=== PATIENT | female | born 1995 | race Caucasian/White ===

== ENCOUNTER 2021-01-15 21:21 | Emergency (ER) | payer SELFPAY ==
[2021-01-15 21:22] VITALS: BP 144/85; PULSE 86; RESP 18; TEMP 36.4; O2SAT 98; BMI 23.1
--- NOTE | 2021-01-15 21:59 | EX.ED.VIS.EY ---
HPI History of Present Illness Chief Complaint: Eye Problem Informant: patient Narrative Narrative: 26-year-old female states when she woke this morning she had a foreign body sensation of the right eye. She notes her eye was tearing and red. She has tried to flush her eye several times today with no relief. She does not wear contact lenses or glasses. She denies any matting of the eyelashes. PFSH PFSH no medical history Home Medications NK 01/15/21 [History Last Taken Unknown] Allergy/AdvReac Type Severity Reaction Status Date / Time No Known Allergies Allergy Verified 01/15/21 21:24 Social History (Updated 01/15/21 @ 22:[address] Pete Ch, DO) Smoking Status: Never smoker substance use type: does not use ROS ROS ED Constitutional Constitutional ED: Denies chills or weight loss Eyes Eyes: Reports other Details: Eye redness foreign body sensation ; Denies change in vision or diplopia ENT ENT ED: Denies ear pain, rhinorrhea or sore throat Cardiovascular Cardiovascular: Denies chest pain, orthopnea, palpitations or racing heartbeat Respiratory/Chest Respiratory/Chest: Denies cough, dyspnea or orthopnea Gastrointestinal Gastrointestinal: Denies abdominal pain, diarrhea, nausea or vomiting Genitourinary Genitourinary ED: Denies dysuria, hematuria or urinary frequency Musculoskeletal Musculoskeletal: Denies arthralgias or myalgias Integumentary Denies abscess or rash Neurologic Neurologic: Denies headache(s) or weakness Psychiatric Psychiatric: Denies anxiety, depression, suicidal ideation or suicidal thoughts Endocrine Endocrinology: Denies polydipsia, polyphagia or polyuria Allergic/Immunologic Allergic/Immunologic ED: Denies mouth swelling, tongue swelling or urticaria EXAM Physical Exam Const Vital Signs: 01/15/21 21:22 Temperature 97.6 F L Temperature Source Temporal Pulse Rate 86 Respiratory Rate 18 Blood Pressure 144/85 H Blood Pressure Mean 104 Pulse Ox 98 Oxygen Delivery Method Room Air Positive well nourished and well developed General Appearance ED: well developed HEENT Reports normocephalic, head/scalp atraumatic and moist mucous membranes Eyes PERRL and EOMs intact bilaterally Eyes Narrative: The right eye is injected. Upon fluorescein staining there is a corneal abrasion in the 6 o'clock position. There is no foreign body noted with eversion of the eyelids. No hyphema. Anterior chamber quiet. Neck no lymphadenopathy, supple and no JVD Resp normal respiratory effort and clear to auscultation bilaterally Cardio regular rate, regular rhythm and no murmurs GI normal to inspection, nondistended, normoactive bowel sounds and non-tender Palpation: soft Back/Spine no CVA tenderness and normal ROM Extremity normal to inspection General Extremety ED: Negative for edema General Extremity: Negative for edema Neuro oriented x3 and CN's II-XII intact bilaterally Sensorium / Orientation: alert Motor Exam: strength 5/5 throughout Psych mental status grossly normal Mood & Affect: Negative for depressed or tearful Skin no rashes or lesions noted and no wounds MDM MDM MDM Narrative Medical decision making narrative: Patient will use erythromycin ophthalmic ointment. I suspect that she sustained a corneal injury during her sleep. Follow-up with ophthalmology 3 to 4 days to ensure resolution return if worsening or concerns Discharge Plan Triage Chief Complaint: Eye Problem ED Provider: Pete Ch Dx/Rx/DC Orders Clinical Impression: Abrasion, corneal Instructions: ED Corneal Abrasion Prescriptions: No Action NK RF: 0 Primary Care Provider: Care Physician,No Primary Referrals: Timoteo Rosado MD [STAFF PHYSICIAN] - 3-5 Days Care Physician,No Primary [Primary Care Provider] - Activity Restrictions/Additional Instructions: Apply thin ribbon to the eye 5 times a day for the next 5 days. Return if worsening or concerns. Disposition Disposition: Home, self care
[2021-01-15] MEDS: Erythromycin Base 1 OPTH.TUBE 1 APPLIC RIGHT EYE (22:05)
[2021-01-15] MEDS: Tetracaine 0.5% Ophthalmic Bottle 1 DRP EACH EYE (22:06)
== END 2021-01-15 22:08 | disposition home or self-care (01) ==
PROVIDERS: Emergency Provider Emergency Medicine
DX: S05.01XA Injury of conjunctiva and corneal abrasion without foreign body, right eye, initial encounter (principal); X58.XXXA Exposure to other specified factors, initial encounter; Y93.9 Activity, unspecified; Y92.89 Other specified places as the place of occurrence of the external cause; Y99.8 Other external cause status
CPT/HCPCS: 99283

== ENCOUNTER 2021-06-17 07:59 | Emergency (ER) | payer SELFPAY ==
[2021-06-17 08:00] VITALS: BP 128/79; PULSE 110; RESP 16; TEMP 36.6; O2SAT 99; BMI 23.1
--- NOTE | 2021-06-17 08:34 | EX.ED.DYSGE1 ---
HPI History of Present Illness Chief Complaint: Abscess Informant: patient Narrative Narrative: 26-year-old female states that several days ago she was eating a crunchy carrot she felt her tooth broke. Now she notes facial swelling swelling along her gumline and pain. She does not have a dentist at the current time. No fevers. PFSH PFSH Medical History no medical history no medical history Home Medications hydrocodone-acetaminophen 1 tab PO Q6H PRN PRN 3 Days #12 tablet 06/17/21 [Rx Last Taken Unknown] penicillin V potassium 500 mg PO 4X/DAY #40 tab 06/17/21 [Rx Last Taken Unknown] Allergy/AdvReac Type Severity Reaction Status Date / Time No Known Allergies Allergy Verified 06/17/21 08:02 Surgical History no surgical history no surgical history Social History (Updated 01/15/21 @ 22:[address] Pete Ch, DO) Smoking Status: Never smoker substance use type: does not use ROS ROS ED Constitutional Constitutional ED: Denies chills or weight loss Eyes Eyes: Denies change in vision or diplopia ENT ENT ED: Reports other Details: Dental pain facial swelling ; Denies ear pain, rhinorrhea or sore throat Cardiovascular Cardiovascular: Denies chest pain, orthopnea, palpitations or racing heartbeat Respiratory/Chest Respiratory/Chest: Denies cough, dyspnea or orthopnea Gastrointestinal Gastrointestinal: Denies abdominal pain, diarrhea, nausea or vomiting Genitourinary Genitourinary ED: Denies dysuria, hematuria or urinary frequency Musculoskeletal Musculoskeletal: Denies arthralgias or myalgias Integumentary Denies abscess or rash Neurologic Neurologic: Denies headache(s) or weakness Psychiatric Psychiatric: Denies anxiety, depression, suicidal ideation or suicidal thoughts Endocrine Endocrinology: Denies polydipsia, polyphagia or polyuria Allergic/Immunologic Allergic/Immunologic ED: Denies mouth swelling, tongue swelling or urticaria EXAM Physical Exam Const Vital Signs: 06/17/21 08:00 Temperature 97.9 F Temperature Source Temporal Pulse Rate 110 H Respiratory Rate 16 Blood Pressure 128/79 H Blood Pressure Mean 95 Pulse Ox 99 Oxygen Delivery Method Room Air Positive well nourished and well developed General Appearance ED: well developed HEENT Reports normocephalic, head/scalp atraumatic, TM's clear and moist mucous membranes HEENT Narrative: Left maxilla facial swelling. There is no trismus. Left upper posterior molar shows significant focal decay down to the gumline. There is an abscess on the lateral aspect of the gumline in this vicinity. Tympanic Membrane ED: Yes TM's clear Eyes PERRL and EOMs intact bilaterally Neck no lymphadenopathy, supple and no JVD Resp normal respiratory effort and clear to auscultation bilaterally Cardio regular rate, regular rhythm and no murmurs GI normal to inspection, nondistended, normoactive bowel sounds and non-tender Palpation: soft Back/Spine no CVA tenderness and normal ROM Thoracic Spine / Upper Back: Negative for paraspinal muscle tenderness Extremity normal to inspection General Extremety ED: Negative for edema General Extremity: Negative for edema Neuro oriented x3 and CN's II-XII intact bilaterally Sensorium / Orientation: alert Motor Exam: strength 5/5 throughout Psych mental status grossly normal Mood & Affect: Negative for depressed or tearful Skin no rashes or lesions noted and no wounds MDM MDM MDM Narrative Medical decision making narrative: I dino bupivacaine and was in the process of starting to numb her when I noticed that the abscess had started to spontaneously drained. The needle never did enter the gumline. Patient was able to express a significant amount of pus. As this is spontaneously draining and I think at this point I need to open the gums up further. I'll place her on [employer] K and a few [place] and urged dental follow-up Discharge Plan Triage Chief Complaint: Abscess ED Provider: Pete Ch Dx/Rx/DC Orders Clinical Impression: Abscess, dental Instructions: ED Dental Abscess Prescriptions: New hydrocodone-acetaminophen [hydrocodone-acetaminophen] 1 TABLET tablet 1 tab PO Q6H PRN PRN (Reason: Pain) 3 Days Qty: 12 RF: 0 penicillin V potassium 500 MG tablet 500 mg PO 4X/DAY Qty: 40 RF: 0 Primary Care Provider: Care Physician,No Primary Referrals: Care Physician,No Primary [Primary Care Provider] - Disposition Disposition: Home, Self Care
[2021-06-17 08:50] VITALS: RESP 17
== END 2021-06-17 08:50 | disposition home or self-care (01) ==
PROVIDERS: Emergency Provider Emergency Medicine
DX: K04.7 Periapical abscess without sinus (principal)
CPT/HCPCS: 99282

== ENCOUNTER 2023-08-18 12:55 | Inpatient (IN) | payer MEDICAID, SELFPAY ==
[2023-08-18] VITALS (8 sets, daily range): BP systolic 106–123; BP diastolic 53–71; PULSE 98–113; TEMP 36.9–37.3; O2SAT 97–99; BMI 24.4
--- OUTSIDE RECORDS SUMMARY | 2023-08-18 11:57 | XMS RPT_ITS | CCD ---
Author Name Unknown Address [id number] [place] [address] Organization [facility] Care Team Providers Care Blanking Machine Operator Name Role Phone Vitaly, Radha Unavailable Unavailable [facility] Unavailable Unavailable Vitaly, Radha Unavailable Unavailable No Doctor Assigned, Nodr Unavailable Unavail able Vitale, Rodo Unavailable Unavailable Vitale, Rodo Unavailable Unavailable No Doctor Assigned, Nodr Unavailable Unavail able Hofstetter, Nelly Unavailable Unavailable Hofstetter, Nelly Unavailable Unavailable No Doctor Assigned, Nodr Unavailable Unavail able Vitaly, Radha Unavailable Unavailable No Doctor Assigned, Nodr Unavailable Unavail able Vitaly, Radha Unavailable Unavailable Vitaly, Radha Unavailable Unavailable No Doctor Assigned, Nodr Unavailable Unavail able Vitaly, Radha Unavailable Unavailable No Doctor Assigned, Nodr Unavailable Unavail able Vitaly, Radha Unavailable Unavailable Vitaly, Radha Unavailable Unavailable No Doctor Assigned, Nodr Unavailable Unavail able Vitaly, Radha Unavailable Unavailable No Doctor Assigned, Nodr Unavailable Unavail able Vitaly, Radha Unavailable Unavailable Vitaly, Radha Unavailable Unavailable No Doctor Assigned, Nodr Unavailable Unavail able Vitaly, Radha Unavailable Unavailable No Doctor Assigned, Nodr Unavailable Unavail able Vitaly, Radha Unavailable Unavailable Vitaly, Radha Unavailable Unavailable No Doctor Assigned, Nodr Unavailable Unavail able Vitaly, Radha Unavailable Unavailable Vitaly, Radha Unavailable Unavailable No Doctor Assigned, Nodr Unavailable Unavail able Vitaly, Radha Unavailable Unavailable Vitaly, Radha Unavailable Unavailable Vitaly, Radha Unavailable Unavailable No Doctor Assigned, Nodr Unavailable Unavail able Vitaly, Radha Unavailable Unavailable No Doctor Assigned, Nodr Unavailable Unavail able Vitaly, Radha Unavailable Unavailable Vitaly, Radha Unavailable Unavailable Vitaly, Radha Unavailable Unavailable No Doctor Assigned, Nodr Unavailable Unavail able Vitaly, Radha Unavailable Unavailable No Doctor Assigned, Nodr Unavailable Unavail able Vitaly, Radha Unavailable Unavailable No Doctor Assigned, Nodr Unavailable Unavail able Vitaly, Radha Unavailable Unavailable Vitaly, Radha Unavailable Unavailable No Doctor Assigned, Nodr Unavailable Unavail able Vitaly, Radha Unavailable Unavailable Vitaly, Radha Unavailable Unavailable No Doctor Assigned, Nodr Unavailable Unavail able Unknown, Pcp Unavailable Unavailable Guru Fonseca Unavailable Unavailable Primary Care Provider UnavailTAPAN Darnell Referring Unavailable CORINA XIONG Referring Unavailable CORINA XIONG Attending Unavailable GLORIA HIGHTOWER Attending Unavailable LINSEY JHA Attending Unavail able EMILIANO ARANA Attending Unavailable LINSEY JHA Attending Unavail able TERESE ROSAS Referring Unavailable CORINA XIONG Referring Unavailable KANU ISLAS Attending Unavailable Allergies Allergy Classification Reported Allergen(s) Allergy Type Date of Onset Reaction(s) Facility (1 source) Dust; Translations: [Dust] Propensity to adverse reactions to drug (disorder) [facility] (1 source) Pollen; Translations: [Pollen] Propensity to adverse reactions to drug (disorder) [facility] ([facility] source) No Known Allergies; Translations: [No Known Allergies] Propensity to adverse reactions to drug (disorder) [facility] Repository (11 sources) house dust allergenic extract; Translations: [HOUSE DUST] Drug Allergy [address] [facility] (11 sources) Ragweed pollen; Translations: [RAGWEED POLLEN] Drug Allergy [address] [facility] (11 sources) Animal Dander; Translations: [ANIMAL DANDER] Drug Allergy [address] [facility] Medications Current Medications Medication Drug Class(es) Dates Sig (Normalized) Sig (Original) acetaminophen 325 mg / HYDROcodone bitartrate 5 mg oral tablet (1 source) Opioid Agonist Start: 03-01-2021 End: 03-03-2021 take 1 tablet by mouth every six hours Vernal 5 mg-325 mg oral tablet ; 1 tab(s) orally every 6 hours Quantity: 12 Refills: 0 Ordered: 28-Feb-2021 Guru Fonseca Start: 28-Feb-2021 End: 02-Mar-2021 Generic Substitution Allowed Comments: Caution federal law prohibits the transfer of this drug to any person other than the person for whom it was prescribed.May cause drowsiness. Alcohol may intensify this effect. Use care when operating dangerous machinery.This product contains acetaminophen. Do not use with any other product containing acetaminophen to prevent possible liver damage.Using more of this medication than prescribed may cause serious breathing problems. Completed/Discontinued Medications Medication Drug Class(es) Dates Sig (Normalized) Sig (Original) nitrofurantoin, macrocrystals 25 mg / nitrofurantoin, monohydrate 75 mg oral capsule (1 source) Nitrofuran Antibacterial Start: 06-07-2019 End: 06-11-2019 take 1 capsule by mouth twice daily as needed Macrobid 100 mg oral capsule ; 1 cap(s) orally 2 times a day x 5 days, As Needed Quantity: 10 Refills: 0 Ordered: 07-Jun-2019 Franklin Esquivel Start: 07-Jun-2019 End: 11-Jun-2019 Generic Substitution Allowed Comments: Finish all this medication unless otherwise directed by prescriber.May discolor urine or feces.Take with food or milk. Problems Problem Classification Problem Date Documented Da te Episodic/Chronic Abdominal pain (2 sources) Abdominal pain 02-28-2021 Episodic Results Test Name Value Interpretation Reference Range Facil ity Vital Signs Date Time Vital Sign Value Performing Clinician Facility 07-26-2023 13:58-0500 Body weight 66.22 kg Anita Catalan APRN.CNP Work Phone: [facility] 07-26-2023 13:58-0500 Diastolic blood pressure 62 mm[Hg] Anita Catalan APRN.ASSEMBLER FINGER BUFFS Work Phone: [facility] 07-26-2023 13:58-0500 Systolic blood pressure 100 mm[Hg] Anita Catalan APRN.ASSEMBLER [employer]INGER [employer]S Work Phone: [facility] 07-12-2023 14:51-0500 Body weight 66.86 kg Emiliano Arana MD Work Phone: [facility] 07-12-2023 14:51-0500 Diastolic blood pressure 62 mm[Hg] Emiliano Arana MD Work Phone: [facility] 07-12-2023 14:51-0500 Systolic blood pressure 100 mm[Hg] Emiliano Arana MD Work Phone: [facility] 07-04-2023 08:06-0500 Body weight 65.32 kg Linsey Arango MD Work Phone: [facility] 07-04-2023 08:06-0500 Diastolic blood pressure 62 mm[Hg] Linsey Arango MD Work Phone: [facility] 07-04-2023 08:06-0500 Systolic blood pressure 100 mm[Hg] Linsey Arango MD Work Phone: [facility] 06-11-2023 10:06-0400 Body weight 62.78 kg Terese Ralph CLOTH MERCERIZER BACK TENDER.ASSEMBLER [employer]INGER [employer]S Work Phone: [facility] 06-11-2023 10:06-0400 Diastolic blood pressure 62 mm[Hg] Terese Ralph CLOTH MERCERIZER BACK TENDER.ASSEMBLER [employer]INGER [employer]S Work Phone: [facility] 06-11-2023 10:06-0400 Systolic blood pressure 96 mm[Hg] Terese Ralph CLOTH MERCERIZER BACK TENDER.ASSEMBLER [employer]INGER [employer]FFS Work Phone: [facility] 05-24-2023 13:10-0400 Body height 165.1 cm Corina Xiong CLOTH MERCERIZER BACK TENDER.ASSEMBLER [employer]S Work Phone: [facility] 05-24-2023 13:10-0400 Body weight 60.78 kg Corina Xiong CLOTH MERCERIZER BACK TENDER.ASSEMBLER [employer]INGER [employer]FFS Work Phone: [facility] 05-24-2023 13:10-0400 Diastolic blood pressure 58 mm[Hg] Corina Samsonhrie CLOTH MERCERIZER BACK TENDER.ASSEMBLER [employer]INGER [employer]FFS Work Phone: [facility] 05-24-2023 13:10-0400 Systolic blood pressure 110 mm[Hg] Corina Xiong CLOTH MERCERIZER BACK TENDER.ASSEMBLER [employer]ING[employer]S Work Phone: [facility] 03-01-2021 01:25-0400 Diastolic blood pressure 90 mm[Hg] Pcp Unknown [facility] 03-01-2021 01:25-0400 Heart rate 70 /min Pcp Unknown [facility] 03-01-2021 01:25-0400 Respiratory rate 16 /min Pcp Unknown [facility] 03-01-2021 01:25-0400 SaO2% (BldA) [Mass fraction] 98 % Pcp Unknown [facility] 03-01-2021 01:25-0400 Systolic blood pressure 110 mm[Hg] Pcp Unknown [facility] 02-28-2021 21:55-0400 Body height 162.5 cm Pcp Unknown [facility] 02-28-2021 21:55-0400 Body temperature 97.52 [degF] Pcp Unknown [facility] 02-28-2021 21:55-0400 Body weight 61 kg Pcp Unknown [facility] 12-18-2017 [id number] Body surface area Derived from formula [facility] Encounters Encounter Date Encounter Type Care Provider Facility Start: 08-08-2023 End: 08-08-2023 ambulatory [facility] Facility:[facility] Start: 07-29-2023 Telephone encounter Developmental Writing Instructor RN Maternal Medicine Procedures Date Procedure Procedure Detail Performing Clinician Start: 07-26-2023 URINE OB DIP B/O Linsey Arango MD Work Phone: Start: 07-12-2023 URINE OB DIP B/O Emiliano casarez MD Work Phone: Start: 06-11-2023 URINE OB DIP B/O Kanu Islas MD Work Phone: Start: 06-05-2023 Us preg uterus after 1st trimest 08/19 gestation Tapan Nicolas MD Work Phone: Start: 05-24-2023 Antibody screen TAPAN NICOLAS Plan of Treatment Date Care Activity Detail Author Start: 07-12-2033 Urine microalbumin profile DTaP,Tdap,Td Vaccine (3 - Td or Tdap) [facility] Start: 05-20-2028 Urine microalbumin profile DTaP,Tdap,Td Vaccine (2 - Td or Tdap) [facility] Start: 05-24-2026 Pap Testing Pap Testing [facility] Start: 08-14-2023 RSV Vaccine (1 - Ris k 1-dose series) RSV Vaccine (1 - Risk 1-dose series) [facility] Start: 06-11-2023 End: 09-10-2023 CBC W Auto Differential panel - Blood CBC + DIFF Lab Routine 22 weeks gestation of Expected: 06/11/2023, Expires: 09/10/2023 [facility] Work Phone: Immunizations Immunization Date Immunization Notes Care Provider Fa cility 07-12-2023 tetanus toxoid, redu marlon diphtheria toxoid, and acellular pertussis vaccine, adsorbed Emiliano Arana MD Work Phone: [facility] Payers Date Payer Category Payer Unknown [id number] 2017 Unknown 2017 Medicaid 1995 Unknown [id number] 2.16.84 0.1.677696.3.579.2. 1995 Unknown [id number] 2.16.84 0.1.423828.3.579.2. 1995 Unknown [id number] 2.16.84 0.1.800667.3.579.2. 1995 Unknown [id number] 2.16.84 0.1.822714.3.579.2. 1995 Unknown [id number] 2.16.84 0.1.270529.3.579.2. 1995 Unknown [id number] 2.16.84 0.1.990774.3.579.2. 1995 Unknown [id number] 2.16.84 0.1.520114.3.579.2. 1995 Unknown [id number] 2.16.84 0.1.312765.3.579.2. 1995 Unknown [id number] 2.16.84 0.1.405596.3.579.2. 1995 Unknown [id number] 2.16.84 0.1.645272.3.579.2. 1995 Unknown [id number] 2.16.84 0.1.157839.3.579.2. 1995 Unknown [id number] 2.16.84 0.1.287045.3.579.2. 1995 Unknown [id number] 2.16.84 0.1.631175.3.579.2. 1995 Unknown [id number] 2.16.84 0.1.043737.3.579.2. 1995 Unknown [id number] 2.16.84 0.1.726009.3.579.2. 1995 Unknown [id number] 2.16.84 0.1.425154.3.579.2. 1995 Unknown [id number] 2.16.84 0.1.597496.3.579.2. 1995 Unknown [id number] 2.16.84 0.1.071904.3.579.2. 1995 Unknown [id number] 2.16.84 0.1.304844.3.579.2. 1995 Unknown [id number] 2.16.84 0.1.453216.3.579.2. 1995 Unknown [id number] 2.0.1.108754.3.579.2. 1995 Unknown [id number] 2.0.1.899130.3.579.2. 1995 Unknown [id number] .1.674449.3.579.2.356 1995 Unknown [id number] 840.1.938725.3.579.2. 1995 Unknown [id number] .1.299300.3.579.2. Unknown [id number] Social History Date Type Detail Facility [facility] Tobacco smoking consumption unknown [facility] Start: 05-24-2023 Tobacco smoking status NHIS Never smoked tobacco [facility] Start: 05-24-2023 Tobacco use and exposure Smokeless tobacco non-user [facility] Start: 05-24-2023 End: 07-26-2023 Alcohol intake Lifetime non-drinker (finding) [facility] Start: 05-24-2023 End: 07-26-2023 History of Social function [facility] Start: 05-24-2023 End: 07-26-2023 Tobacco use panel [facility] National Score (1-100), lower number is lower risk 71 [facility] Start: 01-16-2023 [facility] Start: 1995 Sex Assigned At Not on file [facility] Goals Date Patient Goal Desired Activity /State Personal health goal Clinical Notes 05-24-2023 to 07-29-2023 Telephone Encounter - Priya Hester RN - 07/29/2023 11:55 AM ESTPrenatal Quick Notes - Anita Catalan APRN.CNP - 07/26/2023 3:02 PM ESTPatient Niharika Green MA - 07/12/2023 2:50 PM EST Note Date & Type Note Facility 07-29-2023 Miscellaneous Notes 2nd risk assessment form submitted 07/29/2023. Priya Hester RN documented in this encounter [facility] 07-26-2023 Miscellaneous Notes S: Terry is a 28 year old female who presents at 29w2d for a routine visit. Feeling movement. Denies headache, visual changes, chest pain, shortness of breath, vaginal bleeding, leakage of fluid, or dysuria. Feeling well, no complaints. O: See flow sheet Gen: No apparent distress Abd: Gravid, nontender, S<D ASSESSMENT/PLAN: 1. 29 weeks gestation of - ICD9: V22.2, ICD10: Z3A.29 (primary diagnosis) - Declines LARC, but would like tubal. Title 19 signed 07/12 - PTL precautions reviewed - Kick counts reviewed Still experiencing low back pain. Chiropractor recommendations/information provided. Prior pelvic floor PT consult placed for NORAH. Baby shower on Saturday. To return in 2 weeks or sooner as needed. Anita Haury, CLOTH MERCERIZER BACK TENDER.ASSEMBLER FINGER BUFFS documented in this encounter [facility] 07-26-2023 Instructions Anita Catalan APRN.CNP - 07/26/2023 1:38 PM EST [facility] [address] [place] [address] [facility] [address] [place] [address] [facility] [address] [place] [address] [facility] [address] [address] [address] [email or web address] [address] [place] [address] [facility] [address] [facility] [place] [address] [place] [address] [email or web address] [facility] [address] [place], [place] [address] [email or web address] [facility] [phone] [employer].[facility]ulivermore sanitariumFlex[facility] [address] [place] [address] [facility] [address] [address] [facility] [place] office also [phone] [email or web address] [phone] [address] [facility] [address] [place] [address] [facility] [address] [place] [address] [email or web address] [facility] [address] [place] [address] [email or web address] SEQUENTIAL SCREENINGS The [facility] offers sequential screenings for women who are interested in screenings for chromosomal abnormalities and certain defects during a . The sequential screen combines ultrasound and blood tests to determine the risk of chromosomal abnormalities, including Down's Syndrome (Trisomy 21) and Trisomy 18, as well as open neural tube defects including spina bifida. Ultrasound examination is performed between 11 weeks and 13 weeks gestational age. Blood tests are drawn after the ultrasound and again later in the between 15 and 21 weeks gestational age. Please let your physician know if you are interested in this testing. It will require an appointment with our machine tool technician instructor. This is not an ultrasound performed by a physician in our office during a routine visit. SIGNS AND SYMPTOMS OF LABOR 1. Contractions every 10 minutes or more often 2. Clear, pink, or brownish fluid (water) leaking from vagina 3. Feeling that baby is pushing down, pressure 4. Low, dull backache 5. Cramps that feel like a period 6. Cramps with or without diarrhea If you notice any of the above symptoms, contact our office at [phone] and ask to speak with a nurse. After hours, you can call doctors registry at [phone] OR call [facility] at [phone] and ask to have the doctor manager continuous improvement paged. If you consider this an emergency, dial 9-1-5 or go to your nearest emergency department. NEED HELP? Are you dealing with a violent or abusive relationship? Are you a victim of rape or sexual assult? Call [facility] ([facility] 24 hour Crisis Hotline: 455.129.8068 or 172-128-1896. MANUAL Your Guide to a Healthy manual is now on-line. Visit [email or web address] ancyGuide to download your free copy documented in this encounter [facility] 07-23-2023 Miscellaneous Notes Order signed and faxed. Venus Mensah RN Order to RR to sign. Venus Mensah RN Called [facility] and they will fax another copy. Unable to locate breast pump order and no longer in RR's mailbox. [facility] asking for another copy. Venus Mensah RN [facility] pump [facility]. To RR to sign. Venus Mensah RN documented in this encounter [facility] 07-12-2023 Note HNO ID: [id number] Author: Niharika Jain MA Service: ? Author Type: Buyer Agent Type: Progress Notes Filed: 07/12/2023 5:15 PM Note Text: Patient identified by name and date of . Terry Yusuf presents today for a vaccination of Tdap. Patient denies an allergy to latex: yes Patient denies a severe (life-threatening) allergy to a previous dose of Tdap, DTP, DTaP, DT or Td vaccine. Yes Patient denies history of epilepsy or neurological problems: Yes Patient is afebrile and denies being moderately or severely ill: Yes Patient denies history of Guillain-[place] Syndrome (a severe paralytic illness): Yes Tdap Adacel injection was given without incident. See immunizations for details of immunizations administered today. VIS sheet provided: Yes Provider Emiliano Arana DO was present in office at time of injection. Niharika Jain MA [facility] 07-12-2023 Miscellaneous Notes SW- Back pain and sciatica pain. No ctx, vb, lof. Good FM PE: Gen- NAD, well appearing Abd- Soft, gravid, NT Ext- No edema See flowsheet A/p 27 wk gestation - Back pain: Discussed support belt, tylenol prn, heat prn, chiropractor - NORAH: Consult to pelvic floor PT - Questions answered about CIN2 - Tdap today - Heart palpitations have improved - LARC sign at next visit. Interested in LARC and information given for her to review. Considering sterilization but unsure. Title 19 siogned today. Reviewed PPBC options - RTO 2 wks Emiliano Arana DO documented in this encounter [facility] 07-12-2023 History of Presen t illness Narrative Patient identified by name and date of . Terry Yusuf presents today for a vaccination of Tdap. Patient denies an allergy to latex: yes Patient denies a severe (life-threatening) allergy to a previous dose of Tdap, DTP, DTaP, DT or Td vaccine. Yes Patient denies history of epilepsy or neurological problems: Yes Patient is afebrile and denies being moderately or severely ill: Yes Patient denies history of Guillain-[place] Syndrome (a severe paralytic illness): Yes Tdap Adacel injection was given without incident. See immunizations for details of immunizations administered today. VIS sheet provided: Yes Provider Emiliano Arana DO was present in office at time of injection. Niharika Jain MA documented in this encounter [facility] 07-12-2023 Instructions Niharika Jain MA - 07/12/2023 2:46 PM EST SEQUENTIAL SCREENINGS The [facility] offers sequential screenings for women who are interested in screenings for chromosomal abnormalities and certain defects during a . The sequential screen combines ultrasound and blood tests to determine the risk of chromosomal abnormalities, including Down's Syndrome (Trisomy 21) and Trisomy 18, as well as open neural tube defects including spina bifida. Ultrasound examination is performed between 11 weeks and 13 weeks gestational age. Blood tests are drawn after the ultrasound and again later in the between 15 and 21 weeks gestational age. Please let your physician know if you are interested in this testing. It will require an appointment with our machine tool technician instructor. This is not an ultrasound performed by a physician in our office during a routine visit. SIGNS AND SYMPTOMS OF LABOR 1. Contractions every 10 minutes or more often 2. Clear, pink, or brownish fluid (water) leaking from vagina 3. Feeling that baby is pushing down, pressure 4. Low, dull backache 5. Cramps that feel like a period 6. Cramps with or without diarrhea If you notice any of the above symptoms, contact our office at [phone] and ask to speak with a nurse. After hours, you can call doctors registry at [phone] OR call [facility] at [phone] and ask to have the doctor manager continuous improvement paged. If you consider this an emergency, dial 3-9-1 or go to your nearest emergency department. NEED HELP? Are you dealing with a violent or abusive relationship? Are you a victim of rape or sexual assult? Call [facility] ([place]) 24 hour Crisis Hotline: 908.724.5495 or 667-985-7796. MANUAL Your Guide to a Healthy manual is now on-line. Visit [email or web address] ancyGuide to download your free copy documented in this encounter [facility] 07-04-2023 Note HNO ID: [id number] Author: Linsey Jha MD Service: ? Author Type: Physician Type: Progress Notes Filed: 07/04/2023 8:48 AM Note Text: Direct Support Specialist offered: Patient declines. Terry is a 28 year old who presents today for a colposcopy. The patient's last pap smear was HGSIL from May 2023. Patient has a history of abnormal pap: pt uncertain. The patient has had prior treatment: none. test: positive UNIVERSAL PROTOCOL / SAFETY CHECKLIST Procedure to be Performed: Colposcopy with biopsy Sign In: A Moment of CARE was completed. Personnel directly involved with the procedure wore the appropriate PPE (Personal Protective Equipment). Patient/Surrogate Stated/Verified: PATIENT VERIFIED(optional for EMERGENT procedures): Patient name, Date of , Relevant allergies, and The intended procedure Time Out Communication: Intended patient and procedure match the source documents. Consent documented and matches the intended procedure. Sign Out: SIGN OUT (optional for EMERGENT procedures): All specimen containers correctly labeled. PROCEDURE: EXTERNAL GENITALIA: Normal in appearance without lesions VAGINA: Normal in appearance without lesions CERVIX: Speculum placed in vagina and excellent visualization of cervix achieved. Cervix swabbed x 3 with 3% acetic acid solution. Cervix grossly normal. Squamocolumnar junction visualized. acetowhite changes noted diffusively . BIOPSY: Done at 6:00 and 12:00 ECC: not done HEMOSTASIS: Obtained with silver nitrate and pressure Procedure Summary: Patient tolerated procedure well and colposcopy was adequate. ASSESSMENT: HSIL PLAN: Specimens labeled and sent to Pathology. Will notify patient of results in 1-2 weeks. Discussed will need close follow up after delivery-possible leep after delivery Linsey Swanson MD [facility] 07-04-2023 Instructions Kaylee Thomas Ma - 07/04/2023 7:43 AM EST YOUR RECOVERY It may take a few weeks for your cervix to heal. While your cervix heals, you may have: - Vaginal bleeding (less than a normal menstrual period) - Mild cramping - A brown-black vaginal discharge (similar to coffee grounds) which is a result of the paste used to help stop bleeding from the procedure Do NOT put anything in the vagina for 1 week after your colposcopy if your doctor does a biopsy of your cervix. This includes sex, tampons, and douches. If you have any discomfort, you may take an over the counter pain medication (motrin, advil, ibuprofen, tylenol, etc). If this does not relieve your discomfort, contact your doctor's office for a prescription strength pain medication. It is okay to wear a sanitary pad until the discharge and spotting stops. RISKS Although problems seldom occur with colposcopy, there can be some complications. You may feel faint during and shortly after the procedure as well as have some bleeding and vaginal discharge after the procedure. There is also a risk of infection after the procedure. These complications are rare and can be easily treated. You should contact you doctor is you have any of the following: - Heavy bleeding (more than your normal period) - Bleeding with clots - Severe abdominal pain - Fever (more than 100.4F) - Foul smelling vaginal discharge RESULTS If a biopsy was taken, we will have the results of your biopsy in 1-2 weeks. If you do not hear the results of your biopsy after 2 weeks, please contact your physicians office for the results. Depending on the biopsy results, your doctor will determine your follow up plan which may include further testing or treatments. STAYING HEALTHY After the procedure, you will need to see your doctor for follow up visits during the year. At these visits your doctor will check the health of your cervix with a pap smear. After three normal pap smears, your doctor will allow you to return to having exams once a year. If you have another abnormal pap smear, you may need closer follow up for longer or you may need additional treatment. By making a few lifestyle changes after the procedure, you can help protect the health of your cervix: - Have regular pelvic exams and pap smears as ordered by your doctor. - Stop smoking as smoking increases your risk of developing a cancer of the cervix - If you have more than one sexual partner, limit your number of partners and use condoms to reduce your risks of STDs. If you have any additional questions, please contact your doctor's office. documented in this encounter [facility] 07-04-2023 History of Presen t illness Narrative Direct Support Specialist offered: Patient declines. Terry is a 28 year old who presents today for a colposcopy. The patient's last pap smear was HGSIL from May 2023. Patient has a history of abnormal pap: pt uncertain. The patient has had prior treatment: none. test: positive UNIVERSAL PROTOCOL / SAFETY CHECKLIST Procedure to be Performed: Colposcopy with biopsy Sign In: A Moment of CARE was completed. Personnel directly involved with the procedure wore the appropriate PPE (Personal Protective Equipment). Patient/Surrogate Stated/Verified: PATIENT VERIFIED(optional for EMERGENT procedures): Patient name, Date of , Relevant allergies, and The intended procedure Time Out Communication: Intended patient and procedure match the source documents. Consent documented and matches the intended procedure. Sign Out: SIGN OUT (optional for EMERGENT procedures): All specimen containers correctly labeled. PROCEDURE: EXTERNAL GENITALIA: Normal in appearance without lesions VAGINA: Normal in appearance without lesions CERVIX: Speculum placed in vagina and excellent visualization of cervix achieved. Cervix swabbed x 3 with 3% acetic acid solution. Cervix grossly normal. Squamocolumnar junction visualized. acetowhite changes noted diffusively . BIOPSY: Done at 6:00 and 12:00 ECC: not done HEMOSTASIS: Obtained with silver nitrate and pressure Procedure Summary: Patient tolerated procedure well and colposcopy was adequate. ASSESSMENT: HSIL PLAN: Specimens labeled and sent to Pathology. Will notify patient of results in 1-2 weeks. Discussed will need close follow up after delivery-possible leep after delivery Linsey Swanson MD documented in this encounter [facility] 06-11-2023 Miscellaneous Notes S: Terry Yusuf is a 28 year old female who presents at 22w6d for a routine visit. Feeling movement. Denies headache, visual changes, chest pain, shortness of breath, vaginal bleeding, leakage of fluid, or dysuria. Feeling well, no complaints. O: See flow sheet Gen: No apparent distress Abd: Gravid, nontender, S=D ASSESSMENT/PLAN: 1. Encounter for supervision of other normal in second trimester - ICD9: V22.1, ICD10: Z34.82 (primary diagnosis) - Anatomy scan within normal limits per Dr. Nicolas 2. 22 weeks gestation of - ICD9: V22.2, ICD10: Z3A.22 - URINE OB DIP B/O - Plan for CBC, GTT, and syphilis next visit 3. 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) - ICD9: 795.04, ICD10: R87.613 - Reviewed results with patient - Colposcopy scheduled 07/04 4. Heartburn during in second trimester - ICD9: 646.83, 787.1, ICD10: O26.892, R12 - Reviewed relief measures -Discussed Tums and Pepcid 5. Heart palpitations - ICD9: 785.1, ICD10: R00.2 - Resolved at this time - To notify if persistent throughout 6. Pain of round ligament during - ICD9: 646.83, 625.9, ICD10: O26.899, R10.2 - Reviewed slow movements YOLI Narvaez APRN.CNP documented in this encounter [facility] 06-11-2023 Instructions s Rowena Foreman - 06/11/2023 9:47 AM EDT SEQUENTIAL SCREENINGS The [facility] offers sequential screenings for women who are interested in screenings for chromosomal abnormalities and certain defects during a . The sequential screen combines ultrasound and blood tests to determine the risk of chromosomal abnormalities, including Down's Syndrome (Trisomy 21) and Trisomy 18, as well as open neural tube defects including spina bifida. Ultrasound examination is performed between 11 weeks and 13 weeks gestational age. Blood tests are drawn after the ultrasound and again later in the between 15 and 21 weeks gestational age. Please let your physician know if you are interested in this testing. It will require an appointment with our machine tool technician instructor. This is not an ultrasound performed by a physician in our office during a routine visit. SIGNS AND SYMPTOMS OF LABOR 1. Contractions every 10 minutes or more often 2. Clear, pink, or brownish fluid (water) leaking from vagina 3. Feeling that baby is pushing down, pressure 4. Low, dull backache 5. Cramps that feel like a period 6. Cramps with or without diarrhea If you notice any of the above symptoms, contact our office at [phone] and ask to speak with a nurse. After hours, you can call doctors registry at [phone] OR call [facility] at [phone] and ask to have the doctor manager continuous improvement paged. If you consider this an emergency, dial or go to your nearest emergency department. NEED HELP? Are you dealing with a violent or abusive relationship? Are you a victim of rape or sexual assult? Call [facility] ([place]) 24 hour Crisis Hotline: 596.378.6862 or 505-073-8332. MANUAL Your Guide to a Healthy manual is now on-line. Visit [email or web address] to download your free copy documented in this encounter [facility] 06-05-2023 Miscellaneous Notes Anatomy ultrasound reviewed. No abnormalities identified. Follow up as clinically indicated. Please place copy in ob chart. Tapan Nicolas MD documented in this encounter [facility] 05-28-2023 Miscellaneous Notes 1st risk assessment form submitted May 28, 2023. JEOVANY Tobias, RN OB Clinical Navigator [phone] documented in this encounter [facility] 05-24-[address] Mckeon (in person) and Dr. Mason (via telepathology) reviewed the case in intradepartmental consultation with concurrence. The interpretation was reported by secure staff message to Corina Xiong APRN, KHADIJAH on 05/30/2023 at 16:24. [facility] documented as of this encounter (statuses as of 06/11/2023) [facility] History of Past illness Narrative* Problem Noted Date Diagnosed Date Resolved Date Nausea and vomiting during 05/24/2023 06/11/2023 documented as of this encounter (statuses as of 07/04/2023) [facility] History of Past illness Narrative* Problem Noted Date Diagnosed Date Resolved Date Nausea and vomiting during 05/24/2023 06/11/2023 documented as of this encounter (statuses as of 07/12/2023) [facility] History of Past illness Narrative* Problem Noted Date Diagnosed Date Resolved Date Nausea and vomiting during 05/24/2023 06/11/2023 documented as of this encounter (statuses as of 07/23/2023) [facility] History of Past illness Narrative* Problem Noted Date Diagnosed Date Resolved Date Nausea and vomiting during 05/24/2023 06/11/2023 documented as of this encounter (statuses as of 07/27/2023) [facility] History of Past illness Narrative* Problem Noted Date Diagnosed Date Resolved Date Nausea and vomiting during 05/24/2023 06/11/2023 documented as of this encounter (statuses as of 07/29/2023) [facility] Instructions* Patient Instructions* Anita Catalan APRN.ASSEMBLER FINGER BUFFS - 05/24/2023 1:12 PM EDT Please select the following link to access the [facility] Your Guide to a Healthy . [email or web address] SEQUENTIAL SCREENINGS The [facility] offers sequential screenings for women who are interested in screenings for chromosomal abnormalities and certain defects during a . The sequential screen combinesultrasound and blood tests to determine the risk of chromosomal abnormalities, including Down's Syndrome (Trisomy 21) and Trisomy 18, as well as open neural tube defects including spina bifida. Ultrasound examination is performed between 11 weeks and 13 weeks gestational age. Blood tests are drawn after the ultrasound and again later in the between 15 and 21 weeks gestational age. Please let your physician know if you are interested in this testing. It will require an appointment withour machine tool technician instructor. This is not an ultrasound performed by a physician in our office during a routine visit. SIGNS AND SYMPTOMS OF LABOR 1. Contractions every 10 minutes or more often 2. Clear, pink, or brownish fluid (water) leaking from vagina 3. Feeling that baby is pushing down, pressure 4. Low, dull backache 5. Cramps that feel like a period 6. Cramps with or without diarrhea If you notice any of the above symptoms, contact our office at [phone] and ask to speak with anurse. After hours, you can call [facility] at [phone] OR call [facility] at [phone] ask to have the doctor manager continuous improvement paged. If you consider this an emergency, dial 9-1-1 or go to your nearest emergency department. [facility] History of Present illness Narrative* Corina Xiong APRN.CNP - 05/24/2023 1:00 PM EDT INITIAL OB ASSESSMENT OB Provider: Anila Arana DO HPI: Terry is a 28 year old White here to establish Obstetrical Care. Patient's last menstrual period was 01/02/2023. from OB Dating Form. Cycles irregular was planned Complaints: None OB History T0 L1 SAB0 IAB0 Ectopic0 Multiple0 Live Births1 Previous history: Prior : never History of 4th degree laceration: No History of shoulder dystocia: No History of Hypertensive disorders including pre-eclampsia, chronic hypertension or gestational hypertension: No History of gestational diabetes: No Patient's Risk Screening for delivery: at 34 weeks in [facility] MEDICAL/PSYCHOSOCIAL HISTORY: History of hemorrhage or bleeding concerns: No Thyroid Disease: No History of chronic hypertension: No History of pre-existing diabetes: No, but was diagnosed with prediabetes, NOT pregestational diabetes. BMI 22.30 kg/(m^2) History of abnormal pap: No Prior treatment for cervical dysplasia: none. History of STDs: None Tobacco use: No Caffeine use: Yes cup of coffee daily-half decaf and regular Drug use: No Alcohol use: No Multivitamin with Folic acid: Yes Methodist or heritage: No Would refuse blood transfusion if medically necessary: No Are you currently employed? 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 I don't have enough money to pay my bills: Never Within the past 12 months, have you worried that your food would run out before you had money to buy more: Never In the past 12 months, has lack of reliable transportation kept you from going to medical appointments or work, or from keeping things needed for daily living: Never In the past 12 months, have you had any concerns about having a place to live, or about the condition or quality of your housing: Never Are there any cultural or spiritual needs we should be aware of: No Depression/Anxiety Screening: denies symptoms of depression. OB Depression and Anxiety Screening- This Encounter (since 05/23/2023) Over the past 2 weeks have you felt down, depressed, or hopeless? Negative Over the past two weeks, have you felt little interest or pleasure in doing things? Negative Feeling nervous, anxious or on edge 0-Not at all Not being able to stop or control worrying 0-Not al all Anxiety Pre-Screening Total (If >/= 3 additional questions will be reviewed) 0 Genetic Screening: Partner present: No Patient verbalized knowledge of partner family health history: No Do you or your partner have any personal or family history of defects not previously discussed: No Do you have history of a complicated by anomaly, genetic condition, or demise: No ACOG Recommended Screening Screening for early gestational diabetes testing: Criteria for early testing requires elevated BMI plus one other risk factor: BMI 22.30 kg/(m^2) (risk factor if > than 25 or 23 in Americans) Additional risk factors: Was diagnosed with prediabetes She does meet ACOG criteria for early gestational DM screening. Screening for low dose aspirin use for the prevention of pre-eclampsia: Low dose aspirin should be considered if the patient has one high or two moderate risk factors: High risk factors: None Moderate risk ractors: None She does not meet criteria for low dose ASA Marital Status:Single Partner: Name: Eder Age: 24 Occupation: [employer] Gender: Male History of STDs: None PAST MEDICAL HISTORY Diagnosis Date NEGATIVE MEDICAL HISTORY labor in third trimester with delivery 34 weeks PROM Vaginal delivery 05/19/2018 PAST SURGICAL HISTORY Procedure Laterality Date NONE Current Outpatient Medications Medication Sig Dispense Refill vit/iron fum/folic ac (-FOLIC ACID ORAL) Take by mouth. No current facility-administered medications for this visit. Allergies As of Date: 05/24/2023 Allergen Noted Reaction ANIMAL DANDER 05/24/2023 Cough HOUSE DUST 05/24/2023 Cough RAGWEED POLLEN 05/24/2023 Cough Fully Assessed 05/24/2023 Does patient have penicillin allergy: No REVIEW OF SYSTEMS: GENERAL: Negative for: Fever or Chills HEENT: Negative for: Headache, Impaired Vision, Ringing in Ears, Nosebleeds NECK: Negative for: Swelling, Pain, Stiffness RESPIRATORY: Negative for: Cough, Shortness of breath, Wheezing GASTROINTESTINAL: Negative for: Heartburn, Constipation, Diarrhea, Blood in stool, Vomiting MUSCULOSKELETAL: Negative for: Muscle or joint pain, stiffness, Joint swelling NEUROLOGIC/PSYCHIATRIC: Negative for: Weakness, Paralysis, Numbness, Tingling, Tremor, Anxiety, Depression, Memory loss SKIN: Negative for: Rash, Itching GENITOURINARY: Negative for: vaginal itching, vaginal discharge, hematuria or dysuria PHYSICAL EXAM: BP 110/58 Ht 5' 5 (1.65m) Wt 134 lb (60.8kg) LMP 01/02/2023 BMI 22.30 kg/(m^2). GENERAL: pleasant in no apparent distress DERMATOLOGY: Normal, without lesions, non-icteric, and non-hirsute NECK: Supple, full range of motion, no adenopathy, and thyroid normal CHEST: Normal inspiratory effort BREAST: soft, non-tender, symmetric, no dominant mass, normal nipple-areolar complex, no lymphadenopathy, and no nipple discharge ABDOMEN: soft, non-tender, and no masses NEURO: alert and oriented x3,exam grossly non-focal PELVIS: External genitalia normal without lesions. Perineal body intact. No vaginal or cervical lesions. Cervix closed. Uterus 20 week size. No adnexal masses or tenderness. Clinical Pelvimetry: Pelvimetry clinically assessed as adequate Limited OB ultrasound exam: not performed Doppler: 140 bpm, 20 cm fundal height, feeling good movement. ASSESSMENT: 28 year old at 20w2d wks gestational age PLAN: Encounter for supervision of with history of pre-term labor in third trimester, antepartum - ICD9: V23.41, ICD10: O09.213 (primary diagnosis) -Patient oriented to practice. -Patient given new OB orientation folder. -Discussed nutrition, folic acid supplementation, dietary guidelines, exercise, smoking, alcohol, caffeine, and drug use. -Discussed gestational weight gain guidelines. -Discussed routine OB labs including STD/HIV. -Discussed how to access Your guide to a health and the Finance Clerk. -Discussed aneuploidy and carrier screening. Regarding aneuploidy screening, nuchal translucency/first trimester early anatomy ultrasound and NIPT were discussed. Regarding carrier screening, the myriad screen was discussed. The risks/benefits and limitations of NIPT/aneuploidy screening were reviewed including the potential for false negative and false positive results. We discussed the availability of professional-society guided carrier screening and reviewed the conditions screened and limitations of screening. The availability of genetic counseling was reviewed. Information on aneuploidy/carrier screening was provided. The patient chooses: Aneuploidy screening: chooses to proceed with NIPT (10 weeks) and Carrier screening: Uncertain -Discussed hemoglobin electrophoresis. Patient: Accepts -Patient offered option of Virtual Visits. Patient unsure. May consider in future. -Reviewed midwifery and german teacher services that are available. 2. 20 weeks gestation of - ICD9: V22.2, ICD10: Z3A.20 3. Late care - ICD9: V23.7, ICD10: O09.30 - Insurance issues were a barrier to care - MFM Consult placed - Anatomy ultrasound scheduled 4. History of depression - ICD9: V13.29, V11.8, ICD10: Z87.59, Z86.59 - Doing well mentally today - Continue to monitor throughout 5. Nausea and vomiting during - ICD9: 643.90, ICD10: O21.9 - 1st trimester - Resolved at this time 6. Heart palpitations - ICD9: 785.1, ICD10: R00.2 - Pt. Reports that this has been happening over the last two weeks - CMP ordered - Consider cardiac referral if persistent 7. History of labor - ICD9: V13.21, ICD10: Z87.51 - 34 weeks, PROM, unknown etiology - Precip delivery at [place] - CONSULT TO MATERNAL MEDI 8. Encounter for Papanicolaou smear for cervical cancer screening - ICD9: V76.2, ICD10: Z12.4 - Completed pelvic and breast exam - check GC/Chlamydia - Encouraged monthly BSE - PAP TEST Follow up as scheduled on June 05 for anatomy ultrasound and OB visit. Anita Catalan APRN.KHADIJAH [facility] Encounter for supervision of with history of pre-term labor in third trimester, antepartum- Primary 20 weeks gestation of state, incidental Late care Insufficient care History of depression Nausea and vomiting during Heart palpitations Palpitations History of labor Personal history of pre-term labor Encounter for Papanicolaou smear for cervical cancer screening documented in this encounter [facility] note* Diagnosis 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)- Primary documented in this encounter [facility]* Diagnosis Encounter for anatomic survey- Primary Late care Insufficient care History of delivery 22 weeks gestation of state, incidental documented in this encounter [facility] note* Diagnosis Encounter for supervision of other normal in second trimester- Primary 22 weeks gestation of state, incidental 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) Heartburn during in second trimester Heart palpitations Palpitations Pain of round ligament during documented in this encounter [facility] note* Diagnosis 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)- Primary 26 weeks gestation of state, incidental documented in this encounter [facility] note* Diagnosis 27 weeks gestation of - Primary state, incidental Encounter for supervision of other normal in second trimester Need for vaccination Need for prophylactic vaccination and inoculation against unspecified single disease NORAH (stress urinary incontinence, female) Female stress incontinence documented in this encounter [facility] note* Diagnosis 29 weeks gestation of - Primary state, incidental Encounter for supervision of other normal in third trimester documented in this encounter [facility] for referral (narrative)* Outpatient Procedure (Routine) - Pending Review Specialty Diagnoses / Procedures Referred By Mariposa evans Referred To Contact [facility] Diagnoses 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) Procedures COLPOSCOPY COLPOSCOPY CERVIX BX CERVIX & ENDOCRV Corina Worrell, CLOTH MERCERIZER BACK TENDER.ASSEMBLER FINGER BUFFS [address] [place] [address] [facility] [address] [place] [address] [place] [address] Referral ID Status Reason Start Date Expiration Date Visits Requested Visits Authorized [id number] Pending Review Auto-Generat ed Referral 3 05/29/2024 1 [facility] Outpatient Procedure (Routine) - Pending Review Specialty Diagnoses / Procedures Referred By Contac t Referred To Contact [facility] Diagnoses 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) 26 weeks gestation of Procedures COLPOSCOPY COLPOSCOPY CERVIX BX CERVIX & ENDOCRV CURRETAGE Linsey Jha MD [address] [place] [address] [facility] [address] [place] [address] Referral ID Status Reason Start Date Expiration Date Visits Requested Visits Authorized [id number] Pending Review Auto-Generat ed Referral 3 07/03/2024 1 1 [facility] Summary Purpose Family History No Family History Records FoundNo Family History Records FoundNo Family History Records FoundNo Family History Records FoundNo Family History Records Found Advance Directives No Advanced Directives Records FoundNo Advanced Directives Records FoundNo Advanced Directives Records FoundNo Advanced Directives Records FoundNo Advanced Directives Records Found Reason for Referral Specialty Diagnoses / Procedures Referred By Mariposa evans Referred To Contact Diagnoses History of labor Encounter for supervision of with history of pre-term labor in third trimester, antepartum Procedures CONSULT TO MATERNAL MEDI OFFICE/OUTPATIENT NEW HIGH MDM 60-74 MINUTES Corina Xiong APRN.CNP [address] [place] [address] Referral ID Status Reason Start Date Expiration Date Visits Requested Visits Authorized [id number] Authorized PCP Requested Referral Auto-Generate d Referral 05/24/2023 05/23/2024 1 1 Specialty Diagnoses / Procedures Referred By Contac t Referred To Contact [facility] Diagnoses Encounter for supervision of with history of pre-term labor in third trimester, antepartum Procedures OBSTETRIC ULTRASOUND WHI US PREG UTERUS AFTER 1ST TRIMEST GESTATION Corina Xiong, CLOTH MERCERIZER BACK TENDER.ASSEMBLER FINGER BUFFS [address] [place] [address] [facility] [address] [place] [address] Referral ID Status Reason Start Date Expiration Date Visits Requested Visits Authorized [id number] Pending Review Auto-Generat ed Referral 05/24/2023 05/23/2024 1 1 Specialty Diagnoses / Procedures Referred By Contjam t Referred To Contact [facility] Diagnoses 27 weeks gestation of NORAH (stress urinary incontinence, female) Procedures CONSULT TO PHYSICAL THERAPY PHYSICAL THERAPY EVALUATION HIGH COMPLEX 45 MINS Emiliano Arana MD [address] [place] [address] [facility] [address] [place] [address] Referral ID Status Reason Start Date Expiration Date Visits Requested Visits Authorized [id number] Pending Review Auto-Generat ed Referral 3 07/11/2024 1 1 Health Concerns Problem Noted Date Diagnosed Date [facility] CC Education - COMMON 06/09/2023 Problem Noted Date Diagnosed Date [facility] - COMMON 06/09/2023 Problem Noted Date Diagnosed Date [facility] - COMMON 06/09/2023 Problem Noted Date Diagnosed Date [facility] - COMMON 06/09/2023 Problem Noted Date Diagnosed Date [facility] - COMMON 06/09/2023 Additional Source Comments INFORMATION SOURCE (unrecogn ized section and content) DATE CREATED AUTHOR AUTHOR'S ORGANIZ ATION 06/19/2018 [facility] DATE CREATED AUTHOR AUTHOR'S ORGANIZ ATION 07/04/2018 [facility] DATE CREATED AUTHOR AUTHOR'S ORGANIZ ATION 03/05/2021 [facility] DATE CREATED AUTHOR AUTHOR'S ORGANIZ ATION 08/09/2023 [facility] <item> Privacy Markings (unrecogniz ed section and content) Section Author: Diya Lewis PROHIBITION ON REDISCLOSURE OF CONFIDENTIAL INFORMATION This notice accompanies a disclosure of information concerning a client made to you with the consent of such client. Source Comments (unrecognize d section and content) In the event this informatio n is protected by the Federal Confidentiality of Alcohol and Drug Abuse Patient Records regulations: The Federal rules restrict any use of the information to criminally investigate or prosecute any alcohol or drug abuse patient.[facility] the event this information is protected by the Federal Confidentiality of Alcohol and Drug Abuse Patient Records regulations: The Federal rules restrict any use of the information to criminally investigate or prosecute any alcohol or drug abuse patient.[facility] the event this information is protected by the Federal Confidentiality of Alcohol and Drug Abuse Patient Records regulations: The Federal rules restrict any use of the information to criminally investigate or prosecute any alcohol or drug abuse patient.[facility] the event this information is protected by the Federal Confidentiality of Alcohol and Drug Abuse Patient Records regulations: The Federal rules restrict any use of the information to criminally investigate or prosecute any alcohol or drug abuse patient.[facility] the event this information is protected by the Federal Confidentiality of Alcohol and Drug Abuse Patient Records regulations: The Federal rules restrict any use of the information to criminally investigate or prosecute any alcohol or drug abuse patient.[facility] the event this information is protected by the Federal Confidentiality of Alcohol and Drug Abuse Patient Records regulations: The Federal rules restrict any use of the information to criminally investigate or prosecute any alcohol or drug abuse patient.[facility] the event this information is protected by the Federal Confidentiality of Alcohol and Drug Abuse Patient Records regulations: The Federal rules restrict any use of the information to criminally investigate or prosecute any alcohol or drug abuse patient.[facility] the event this information is protected by the Federal Confidentiality of Alcohol and Drug Abuse Patient Records regulations: The Federal rules restrict any use of the information to criminally investigate or prosecute any alcohol or drug abuse patient.[facility] the event this information is protected by the Federal Confidentiality of Alcohol and Drug Abuse Patient Records regulations: The Federal rules restrict any use of the information to criminally investigate or prosecute any alcohol or drug abuse patient.[facility] the event this information is protected by the Federal Confidentiality of Alcohol and Drug Abuse Patient Records regulations: The Federal rules restrict any use of the information to criminally investigate or prosecute any alcohol or drug abuse patient.[facility] Reason for Visit (unrecogniz ed section and content) Reason Comments PRAF Initial PRAF Reason Comments US Specialty Diagnoses / Procedures Referred By Contac t Referred To Contact [facility] Diagnoses Late care Procedures OBSTETRIC ULTRASOUND WHI US PREG UTERUS AFTER 1ST TRIMEST GESTATION Tapan Nicolas MD [address] 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 This clinical summary was aggregated from multiple sources. Caution should be exercised in using it in the provision of clinical care. This summary normalizes information from multiple sources, and as a consequence, information in this document may materially change the coding, format and clinical context of patient data. In addition, data may be omitted in some cases. CLINICAL DECISIONS SHOULD BE BASED ON THE PRIMARY CLINICAL RECORDS. [facility] [employer] provides no warranty or guarantee of the accuracy or completeness of information in this document.
[2023-08-18 12:49] LABS: ROM Internal Control Test YES-OK TO RESULT pt. (Internal QC); ROM Patient Test Negative (Negative); Record Kit Lot#, ROM+ K1374
--- OUTSIDE RECORDS SUMMARY | 2023-08-18 13:04 | XMS RPT_ITS | CCD ---
Author Name Unknown Address [address] [place] [address] Organization [facility] Care Team Providers Care Plant Electrician Name Role Phone Vitaly, Radha Unavailable Unavailable [...] Propensity to adverse reactions to drug (disorder) [facility] ([facility]) Pollen; Translations: [Pollen] Propensity to adverse reactions to drug (disorder) [facility] ([facility] source) No Known Allergies; Translations: [No Known Allergies] Propensity to adverse reactions to drug (disorder) [facility] Repository (11 sources) house dust allergenic extract; Translations: [HOUSE DUST] Drug Allergy 3 [facility] (11 sources) Ragweed pollen; Translations: [RAGWEED POLLEN] Drug Allergy 3 [facility] (11 sources) Animal Dander; Translations: [ANIMAL DANDER] Drug Allergy 3 [facility] Medications Current Medications Medication Drug Class(es) Dates Sig (Normalized) Sig (Original) acetaminophen 325 mg / HYDROcodone bitartrate 5 mg oral tablet (1 source) Opioid Agonist Start: 03-01-2021 End: 03-03-2021 take 1 tablet by mouth every six hours Browder 5 mg-325 mg oral tablet ; 1 [...] 66.22 kg Anita Catalan APRN.CNP Work Phone: [facility] 07-26-2023 13:58-0500 Diastolic blood pressure 62 mm[Hg] Anita Catalan APRN.PROTOCOL OFFICER Work Phone: [facility] 07-26-2023 13:58-0500 Systolic blood pressure 100 mm[Hg] Anita Catalan APRN.PROTOCOL OFFICER Work Phone: [facility] 07-12-2023 14:51-0500 Body weight 66.86 kg Emiliano Arana MD Work Phone: [facility] 07-12-2023 14:51-0500 Diastolic blood pressure 62 mm[Hg] Emiliano Arana MD Work Phone: [facility] 07-12-2023 14:51-0500 Systolic blood pressure 100 mm[Hg] Emiliano Arana MD Work Phone: [facility] 07-04-2023 08:06-0500 Body weight 65.32 kg Linsey Arango MD Work Phone: [facility] 07-04-2023 08:06-0500 Diastolic blood pressure 62 mm[Hg] Linsey Arango MD Work Phone: [facility] 07-04-2023 08:06-0500 Systolic blood pressure 100 mm[Hg] Linsey Arango MD Work Phone: [facility] 06-11-2023 10:06-0400 Body weight 62.78 kg Terese Ralph LIFEGUARD.PROTOCOL OFFICER Work Phone: [facility] 06-11-2023 10:06-0400 Diastolic blood pressure 62 mm[Hg] Terese Ralph LIFEGUARD.PROTOCOL OFFICER Work Phone: [facility] 06-11-2023 10:06-0400 Systolic blood pressure 96 mm[Hg] Terese Ralph LIFEGUARD.PROTOCOL OFFICER Work Phone: [facility] 05-24-2023 13:10-0400 Body height 165.1 cm Corina Xiong LIFEGUARD.PROTOCOL OFFICER Work Phone: [facility] 05-24-2023 13:10-0400 Body weight 60.78 kg Corina Xiong LIFEGUARD.PROTOCOL OFFICER Work Phone: [facility] 05-24-2023 13:10-0400 Diastolic blood pressure 58 mm[Hg] Corina Samsonhrie LIFEGUARD.PROTOCOL OFFICER Work Phone: [facility] 05-24-2023 13:10-0400 Systolic blood pressure 110 mm[Hg] Corina Xiong LIFEGUARD.PROTOCOL OFFICER Work Phone: [facility] 03-01-2021 01:25-0400 Diastolic blood pressure 90 mm[Hg] Pcp Unknown [facility] 03-01-2021 01:25-0400 Heart rate 70 /min Pcp Unknown [facility] 03-01-2021 01:25-0400 Respiratory rate 16 /min Pcp Unknown [facility] 03-01-2021 01:25-0400 SaO2% (BldA) [Mass fraction] 98 % Pcp Unknown [facility] 03-01-2021 01:25-0400 Systolic blood pressure 110 mm[Hg] Pcp Unknown [facility] 02-28-2021 21:55-0400 Body height 162.5 cm Pcp Unknown [facility] 02-28-2021 21:55-0400 Body temperature 97.52 [degF] Pcp Unknown [facility] 02-28-2021 21:55-0400 Body weight 61 kg Pcp Unknown [facility] 12-18-2017 [id number] Body surface area Derived from formula [facility] Encounters Encounter Date Encounter Type Care Provider Facility Start: 08-08-2023 End: 08-08-2023 ambulatory [facility] Facility:[facility] Start: 07-29-2023 Telephone encounter Mold Designer RN Maternal Medicine Procedures Date Procedure Procedure [...] DTaP,Tdap,Td Vaccine (3 - Td or Tdap) [facility] Start: 05-20-2028 Urine microalbumin profile DTaP,Tdap,Td Vaccine (2 - Td or Tdap) [facility] Start: 05-24-2026 Pap Testing Pap Testing [facility] Start: 08-14-2023 RSV Vaccine (1 - Ris k 1-dose series) RSV Vaccine (1 - Risk 1-dose series) [facility] Start: 06-11-2023 End: 09-10-2023 CBC W Auto Differential panel - Blood CBC + DIFF Lab Routine 22 weeks gestation of Expected: 06/11/2023, Expires: 09/10/2023 [facility] Work Phone: Immunizations Immunization Date Immunization Notes Care Provider Fa cility 07-12-2023 tetanus toxoid, redu marlon diphtheria toxoid, and acellular pertussis vaccine, adsorbed Emiliano Arana MD Work Phone: [facility] Payers Date Payer Category Payer Unknown [id number] 2017 Unknown 2017 Medicaid 1995 Unknown [id number] 2.16.84 0.1.224855.3.579.2. 1995 Unknown [id number] 2.16.84 0.1.806835.3.579.2. 1995 Unknown [id number] 2.16.84 0.1.804408.3.579.2. 1995 Unknown [id number] 2.16.84 0.1.023085.3.579.2. 1995 Unknown [id number] 2.16.84 0.1.296585.3.579.2. 1995 Unknown [id number] 2.16.84 0.1.686841.3.579.2. 1995 Unknown [id number] 2.16.84 0.1.296396.3.579.2. 1995 Unknown [id number] 2.16.84 0.1.310643.3.579.2. 1995 Unknown [id number] 2.16.84 0.1.754633.3.579.2. 1995 Unknown [id number] 2.16.84 0.1.012773.3.579.2. 1995 Unknown [id number] 2.16.84 0.1.202017.3.579.2. 1995 Unknown [id number] 2.16.84 0.1.174571.3.579.2. 1995 Unknown [id number] 2.16.84 0.1.586295.3.579.2. 1995 Unknown [id number] 2.16.84 0.1.429919.3.579.2. 1995 Unknown [id number] 2.16.84 0.1.064171.3.579.2. 1995 Unknown [id number] 2.16.84 0.1.502601.3.579.2. 1995 Unknown [id number] 2.16.84 0.1.911450.3.579.2. 1995 Unknown [id number] 2.16.84 0.1.966050.3.579.2. 1995 Unknown [id number] 2.16.84 0.1.387680.3.579.2. 1995 Unknown [id number] 2.16.84 0.1.469362.3.579.2. 1995 Unknown [id number] 2.0.1.834986.3.579.2. 1995 Unknown [id number] 2.0.1.021652.3.579.2. 1995 Unknown [id number] .1.976623.3.579.2.356 1995 Unknown [id number] 840.1.878746.3.579.2. 1995 Unknown [id number] .1.730297.3.579.2. Unknown [id number] Social History Date Type Detail Facility [facility] Tobacco smoking consumption unknown [facility] Start: 05-24-2023 Tobacco smoking status NHIS Never smoked tobacco [facility] Start: 05-24-2023 Tobacco use and exposure Smokeless tobacco non-user [facility] Start: 05-24-2023 End: 07-26-2023 Alcohol intake Lifetime non-drinker (finding) [facility] Start: 05-24-2023 End: 07-26-2023 History of Social function [facility] Start: 05-24-2023 End: 07-26-2023 Tobacco use panel [facility] National Score (1-100), lower number is lower risk 71 [facility] Start: 01-16-2023 [facility] Start: 1995 Sex Assigned At Not [...] Priya Hester RN documented in this encounter [facility] 07-26-2023 Miscellaneous Notes S: Terry is [...] weeks or sooner as needed. Anita Haury, LIFEGUARD.PROTOCOL OFFICER documented in this encounter [facility] 07-26-2023 Instructions Anita Catalan APRN.CNP - 07/26/2023 1:38 PM EST [facility] [address] [place] [address] [facility] [address] [place], [place] [address] [facility] [address] [place] [address] [facility] [address] [place] [place] [address] [email or web address] [address] [place] [address] [facility] [address] [address] [place] [address] [email or web address] [facility] [address] [place], [place] [address] [email or web address] [facility] [phone] [facility] [address] [place] [address] [facility] [address] [address] [facility] [place] office also [phone] [email or web address] [facility] [phone] [address] [facility] [address] [place] [address] [facility] [address] [place] [address] [email or web address] [facility] [address] [place] [address] [email or web address] SEQUENTIAL SCREENINGS The [facility] offers sequential screenings for women who [...] It will require an appointment with our sound technician. This is not an ultrasound performed by [...] the above symptoms, contact our office at [phone] and ask to speak with a nurse. After hours, you can call doctors registry at [phone] OR call [facility] at [phone] and ask to have the doctor distribution operation supervisor paged. If you consider this an emergency, dial 9-1-6 or go to your nearest emergency department. NEED HELP? Are you dealing with a violent or abusive relationship? Are you a victim of rape or sexual assult? Call [facility] ([facility] 24 hour Crisis Hotline: 868.917.3002 or 027-264-4604. MANUAL Your Guide to a Healthy manual is now on-line. Visit [email or web address] ancyGuide to download your free copy documented in this encounter [facility] 07-23-2023 Miscellaneous Notes Order signed and faxed. Venus Mensah RN Order to RR to sign. Venus Mensah RN Called [facility] and they will fax another copy. Unable to locate breast pump order and no longer in RR's mailbox. [facility] asking for another copy. Venus Mensah RN Breast pump order received from [facility]. To RR to sign. Venus Mensah RN documented in this encounter [facility] 07-12-2023 Note HNO ID: [id number] Author: Niharika Jain MA Service: ? Author Type: Utility Maintenance Worker Type: Progress Notes Filed: 07/12/2023 5:15 PM [...] severely ill: Yes Patient denies history of Guillain-Rembert Syndrome (a severe paralytic illness): Yes Tdap Adacel injection was given without incident. See immunizations for details of immunizations administered today. VIS sheet provided: Yes Provider Emiliano Arana DO was present in office at time of injection. Niharika Jain MA [facility] 07-12-2023 Miscellaneous Notes SW- Back pain and [...] Emiliano Arana DO documented in this encounter [facility] 07-12-2023 History of Presen t illness [...] severely ill: Yes Patient denies history of Guillain-Rembert Syndrome (a severe paralytic illness): Yes Tdap Adacel injection was given without incident. See immunizations for details of immunizations administered today. VIS sheet provided: Yes Provider Emiliano Arana DO was present in office at time of injection. Niharika Jain MA documented in this encounter [facility] 07-12-2023 Instructions Niharika Jain MA - 07/12/2023 2:46 PM EST SEQUENTIAL SCREENINGS The [facility] offers sequential screenings for women who [...] It will require an appointment with our sound technician. This is not an ultrasound performed by [...] the above symptoms, contact our office at [phone] and ask to speak with a nurse. After hours, you can call doctors registry at [phone] OR call [facility] at [phone] and ask to have the doctor distribution operation supervisor paged. If you consider this an emergency, dial 2-6-4 or go to your nearest emergency department. NEED HELP? Are you dealing with a violent or abusive relationship? Are you a victim of rape or sexual assult? Call [facility] ([place]) 24 hour Crisis Hotline: 665.539.1384 or 885-382-6551. MANUAL Your Guide to a Healthy manual is now on-line. Visit [email or web address] ancyGuide to download your free copy documented in this encounter [facility] 07-04-2023 Note HNO ID: [id number] Author: Linsey Jha MD Service: ? Author Type: Physician Type: Progress Notes Filed: 07/04/2023 8:48 AM Note Text: Clinical Research Specialist offered: Patient declines. Terry is a [...] delivery-possible leep after delivery Linsey Swanson MD [facility] 07-04-2023 Instructions Kaylee Thomas Ma - 07/04/2023 [...] your doctor's office. documented in this encounter [facility] 07-04-2023 History of Presen t illness Narrative Clinical Research Specialist offered: Patient declines. Terry is a [...] Linsey Swanson MD documented in this encounter [facility] 06-11-2023 Miscellaneous Notes S: Terry Yusuf [...] YOLI Narvaez APRN.CNP documented in this encounter [facility] 06-11-2023 Instructions s Rowena Foreman - 06/11/2023 9:47 AM EDT SEQUENTIAL SCREENINGS The [facility] offers sequential screenings for women who [...] It will require an appointment with our sound technician. This is not an ultrasound performed by [...] the above symptoms, contact our office at [phone] and ask to speak with a nurse. After hours, you can call doctors registry at [phone] OR call [facility] at [phone] and ask to have the doctor distribution operation supervisor paged. If you consider this an emergency, dial or go to your nearest emergency department. NEED HELP? Are you dealing with a violent or abusive relationship? Are you a victim of rape or sexual assult? Call [facility] ([place]) 24 hour Crisis Hotline: 108.451.2744 or 526-735-5808. MANUAL Your Guide to a Healthy manual is now on-line. Visit [email or web address] ancyGuide to download your free copy documented in this encounter [facility] 06-05-2023 Miscellaneous Notes Anatomy ultrasound reviewed. No abnormalities identified. Follow up as clinically indicated. Please place copy in ob chart. Tapan Nicolas MD documented in this encounter [facility] 05-28-2023 Miscellaneous Notes 1st risk assessment form submitted May 28, 2023. JEOVANY Tobias, RN OB Clinical Navigator [phone] documented in this encounter [facility] 05-24-[address] Mckeon (in person) and Dr. Mason (via telepathology) reviewed the case in intradepartmental consultation with concurrence. The interpretation was reported by secure staff message to Corina Xiong APRN, KHADIJAH on 05/30/2023 at 16:24. [facility] documented as of this encounter (statuses as of 06/11/2023) [facility] History of Past illness Narrative* Problem Noted Date Diagnosed Date Resolved Date Nausea and vomiting during 05/24/2023 06/11/2023 documented as of this encounter (statuses as of 07/04/2023) [facility] History of Past illness Narrative* Problem Noted Date Diagnosed Date Resolved Date Nausea and vomiting during 05/24/2023 06/11/2023 documented as of this encounter (statuses as of 07/12/2023) [facility] History of Past illness Narrative* Problem Noted Date Diagnosed Date Resolved Date Nausea and vomiting during 05/24/2023 06/11/2023 documented as of this encounter (statuses as of 07/23/2023) [facility] History of Past illness Narrative* Problem Noted Date Diagnosed Date Resolved Date Nausea and vomiting during 05/24/2023 06/11/2023 documented as of this encounter (statuses as of 07/27/2023) [facility] History of Past illness Narrative* Problem Noted Date Diagnosed Date Resolved Date Nausea and vomiting during 05/24/2023 06/11/2023 documented as of this encounter (statuses as of 07/29/2023) [facility] Instructions* Patient Instructions* Anita Catalan APRN.PROTOCOL OFFICER - 05/24/2023 1:12 PM EDT Please select the following link to access the [facility] Your Guide to a Healthy . [email or web address] SEQUENTIAL SCREENINGS The [facility] offers sequential screenings for women who [...] testing. It will require an appointment withour sound technician. This is not an ultrasound performed by [...] the above symptoms, contact our office at [phone] and ask to speak with anurse. After hours, you can call [facility] at [phone] OR call [facility] at [phone] ask to have the doctor distribution operation supervisor paged. If you consider this an emergency, dial 9-1-1 or go to your nearest emergency department. [facility] History of Present illness Narrative* Corina [...] Screening for delivery: at 34 weeks in [facility] MEDICAL/PSYCHOSOCIAL HISTORY: History of hemorrhage or bleeding [...] use: No Multivitamin with Folic acid: Yes Catholic or heritage: No Would refuse blood transfusion if medically necessary: No Are you currently employed? Yes, Occupation: [employer] Do you have any history of depression, [...] Status:Single Partner: Name: Eder Age: 24 Occupation: [employer] Gender: Male History of STDs: None PAST [...] Your guide to a health and the Blood Bank Laboratory Technician. -Discussed aneuploidy and carrier screening. Regarding aneuploidy [...] May consider in future. -Reviewed midwifery and recreation therapist services that are available. 2. 20 weeks [...] PROM, unknown etiology - Precip delivery at [place] - CONSULT TO MATERNAL MEDI 8. Encounter for Papanicolaou smear for cervical cancer screening - ICD9: V76.2, ICD10: Z12.4 - Completed pelvic and breast exam - check GC/Chlamydia - Encouraged monthly BSE - PAP TEST Follow up as scheduled on June 05 for anatomy ultrasound and OB visit. 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)- Primary [facility] Diagnosis Encounter for anatomic survey- Primary Late care Insufficient care History of delivery 22 weeks gestation of state, incidental documented in this encounter [facility]* Diagnosis Encounter for supervision of other normal in second trimester- Primary 22 weeks gestation of state, incidental 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) Heartburn during in second trimester Heart palpitations Palpitations Pain of round ligament during documented in this encounter [facility] note* Diagnosis 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)- Primary 26 weeks gestation of state, incidental documented in this encounter [facility] note* Diagnosis 27 weeks gestation of - Primary state, incidental Encounter for supervision of other normal in second trimester Need for vaccination Need for prophylactic vaccination and inoculation against unspecified single disease NORAH (stress urinary incontinence, female) Female stress incontinence documented in this encounter [facility] note* Diagnosis 29 weeks gestation of - Primary state, incidental Encounter for supervision of other normal in third trimester documented in this encounter [facility] for referral (narrative)* Outpatient Procedure (Routine) - Pending Review Specialty Diagnoses / Procedures Referred By Mariposa evans Referred To Contact [facility] Diagnoses 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) Procedures COLPOSCOPY COLPOSCOPY CERVIX BX CERVIX & ENDOCRV Corina Worrell, LIFEGUARD.PROTOCOL OFFICER [address] [place] [address] [facility] [address] [place] [address] [place] [address] Referral ID Status Reason Start Date Expiration Date Visits Requested Visits Authorized [id number] Pending Review Auto-Generat ed Referral 3 05/29/2024 1 1 [facility] Outpatient Procedure (Routine) - Pending Review Specialty Diagnoses / Procedures Referred By Contac t Referred To Contact [facility] Diagnoses 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) 26 weeks gestation of Procedures COLPOSCOPY COLPOSCOPY CERVIX BX CERVIX & ENDOCRV CURRETAGE Linsey Jha MD [address] [place] [address] [facility] [address] [place] [address] Referral ID Status Reason Start Date Expiration Date Visits Requested Visits Authorized [id number] Pending Review Auto-Generat ed Referral 3 07/03/2024 1 1 [facility] Summary Purpose Family History No Family [...] Corina Xiong APRN.CNP [address] [place] [address] Referral ID Status Reason Start Date Expiration Date Visits Requested Visits Authorized [id number] Authorized PCP Requested Referral Auto-Generate d Referral 05/24/2023 05/23/2024 1 1 Specialty Diagnoses / Procedures Referred By Contac t Referred To Contact [facility] Diagnoses Encounter for supervision of with history of pre-term labor in third trimester, antepartum Procedures OBSTETRIC ULTRASOUND WHI US PREG UTERUS AFTER 1ST TRIMEST GESTATION Corina Xiong, LIFEGUARD.PROTOCOL OFFICER [address] [place] [address] [facility] [address] [place] [address] Referral ID Status Reason Start Date Expiration Date Visits Requested Visits Authorized [id number] Pending Review Auto-Generat ed Referral 05/24/2023 05/23/2024 1 1 Specialty Diagnoses / Procedures Referred By Contjam t Referred To Contact [facility] Diagnoses 27 weeks gestation of NORAH (stress urinary incontinence, female) Procedures CONSULT TO PHYSICAL THERAPY PHYSICAL THERAPY EVALUATION HIGH COMPLEX 45 MINS Emiliano Arana MD [address] [place] [address] [facility] [address] [place] [address] Referral ID Status Reason Start Date Expiration Date Visits Requested Visits Authorized [id number] Pending Review Auto-Generat ed Referral 3 07/11/2024 [...] DATE CREATED AUTHOR AUTHOR'S ORGANIZ ATION 06/19/2018 [facility] DATE CREATED AUTHOR AUTHOR'S ORGANIZ ATION 07/04/2018 [facility] DATE CREATED AUTHOR AUTHOR'S ORGANIZ ATION 03/05/2021 [facility] DATE CREATED AUTHOR AUTHOR'S ORGANIZ ATION 08/09/2023 [facility] <item> Privacy Markings (unrecogniz ed section and [...] or prosecute any alcohol or drug abuse patient.[facility] the event this information is protected by the Federal Confidentiality of Alcohol and Drug Abuse Patient Records regulations: The Federal rules restrict any use of the information to criminally investigate or prosecute any alcohol or drug abuse patient.[facility] the event this information is protected by the Federal Confidentiality of Alcohol and Drug Abuse Patient Records regulations: The Federal rules restrict any use of the information to criminally investigate or prosecute any alcohol or drug abuse patient.[facility] the event this information is protected by the Federal Confidentiality of Alcohol and Drug Abuse Patient Records regulations: The Federal rules restrict any use of the information to criminally investigate or prosecute any alcohol or drug abuse patient.[facility] the event this information is protected by the Federal Confidentiality of Alcohol and Drug Abuse Patient Records regulations: The Federal rules restrict any use of the information to criminally investigate or prosecute any alcohol or drug abuse patient.[facility] the event this information is protected by the Federal Confidentiality of Alcohol and Drug Abuse Patient Records regulations: The Federal rules restrict any use of the information to criminally investigate or prosecute any alcohol or drug abuse patient.[facility] the event this information is protected by the Federal Confidentiality of Alcohol and Drug Abuse Patient Records regulations: The Federal rules restrict any use of the information to criminally investigate or prosecute any alcohol or drug abuse patient.[facility] the event this information is protected by the Federal Confidentiality of Alcohol and Drug Abuse Patient Records regulations: The Federal rules restrict any use of the information to criminally investigate or prosecute any alcohol or drug abuse patient.[facility] the event this information is protected by the Federal Confidentiality of Alcohol and Drug Abuse Patient Records regulations: The Federal rules restrict any use of the information to criminally investigate or prosecute any alcohol or drug abuse patient.[facility] the event this information is protected by the Federal Confidentiality of Alcohol and Drug Abuse Patient Records regulations: The Federal rules restrict any use of the information to criminally investigate or prosecute any alcohol or drug abuse patient.[facility] Reason for Visit (unrecogniz ed section and content) Reason Comments PRAF Initial PRAF Reason Comments US Specialty Diagnoses / Procedures Referred By Contac t Referred To Contact [facility] Diagnoses Late care Procedures OBSTETRIC ULTRASOUND WHI US PREG UTERUS AFTER 1ST TRIMEST GESTATION Tapan Nicolas MD [address] [place] [address] [facility] [address] [place] [address] Referral ID Status Reason Start Date Expiration Date V isits Requested Visits Authorized [id number] Closed Auto-Generate d Referral 05/15/2023 05/14/2024 1 1 Reason Onset Date Comments Care 06/11/2023 Reason Comments Colposcopy Reason Onset Date Comments Care 07/12/2023 Reason Comments Breast Pump Reason Onset Date Comments Care 07/26/2023 Reason Comments Mold Designer - Other PRAF FOR RECORDS PERTAINING TO [...] BE BASED ON THE PRIMARY CLINICAL RECORDS. [facility] [employer] provides no warranty or guarantee of the accuracy or completeness of information in this document.
[2023-08-18] MEDS: Penicillin G Pot 5,000,000 UNITS in 0.9% Normal Saline (100mL MB+) 100 ML 150 UNITS IV (13:16)
[2023-08-18] MEDS: Lactated Ringers 1,000 ML 50 ML IV ×2 (13:17→14:38)
--- NOTE | 2023-08-18 13:21 | PCM.HP.OB ---
HPI - General General Date of Admission: 08/18/23 Date of Service: 08/18/23 Chief Complaint: contractions HPI Narrative TERRY CARLOS, is a 28 F at 32w4d who presents with ctx's. Has had off and on ctx's for several days. This morning had intercourse followed by worsening in ctx's. No LOF or VB. She offers no other complaints. PFSH PFS Medical History (Updated 08/18/23 @ 13:[address] Karen Arana, DO) History of pre-term labor depression Home Medications vitamins no.144-folic acid 400 mcg chewable tablet () 2 tab PO DAILY 08/18/23 [History Last Taken 08/17/23] Allergy/AdvReac Type Severity Reaction Status Date / Time No Known Allergies Allergy Verified 08/18/23 12:12 Social History (Updated 01/15/21 @ 22:[address] Pete Ch, DO) Smoking Status: Never smoker substance use type: does not use History Addt'l History: Had a prior vaginal delivery at 34 wk gestation NST FHR Rate Baby A Baseline: 140 Variability:: Moderate Accelerations:: 15 x 15 Decelerations:: None NST Reactive:: Yes FHR Category:: Category I Uterine Activity:: ctx's q 2-3 min Vital Signs Vital Signs Vital Signs: 08/18/23 12:01 08/18/23 12:01 Pulse Rate 113 H Blood Pressure 109/71 BP Systolic 109 BP Diastolic 71 Weight Weight: 147 lb Body Mass Index (BMI) 24.4 Labs Labs Labs: Blood Type Pending Antibody Screen Pending Hct 37.4 % (37-47) Hgb 12.2 g/dL (12.0-15.0) Syphilis Total Ab Pending Group B Strep DNA Pending Assessment & Plan (1) 32 weeks gestation of : PLAN: Cvx 5 cm with BBOW per RN on exam. Admit for PTL. - Routine intrapartum orders - GBS collected and start PCN for GBS unknown - BMZ x 1 given - Bedside TAUS confirms vertex presentation - Patient counseled that infant may be transported to tertiary care center (2) labor: COMMENT: 5 cm on admission (3) History of delivery: COMMENT: Prior delivery at 34 week gestation (4) Late care: COMMENT: First visit at 20 week gestation SHI based on LMP with history of irregular cycles
[2023-08-18 13:24] LABS: Absolute Lymphocyte Count 1.49 X10^3/uL (0.83-4.51); Absolute Neutrophil Count 7.9 X10^3/uL (2.0-7.7); Basophil# 0.04 X10^3/uL; Basophil% 0.4 % (0-1); Eosinophil# 0.05 X10^3/uL; Eosinophils% 0.5 % (0-5); Hematocrit 37.4 % (37-47); Hemoglobin 12.2 g/dL (12.0-15.0); Lymphocyte # 1.49 X10^3/ul (0.83-4.51); Lymphocyte % 14.4 % (19-41); Mean Corp Hgb Conc 32.6 g/dL (32-36); Mean Corpuscular Hgb 29.5 pg (27.0-32.0); Mean Corpuscular Volume 90.3 fL (81-99); Mean Platelet Vol. 11.1 fl (6.2-12.0); Monocyte# 0.84 X10^3/uL; Monocyte% 8.1 % (0-10); NRBC Flagged by Analyzer 0 % (0-5); Neutrophil # 7.85 X10^3/uL (2.7-7.7); Neutrophil % 75.6 % (47-70); Platelet Count 275 K/mm3 (150-450); RBC Distribution Width CV 13.5 % (11.6-14.6); RBC Distribution Width SD 44.4 fl (35.1-43.9); Red Blood Count 4.14 M/mm3 (4.2-5.4); White Blood Count 10.4 K/mm3 (4.4-11.0)
[2023-08-18] MEDS: Betamethasone/Betamethasone 30 MG/5 ML Vial 12 MG IM (13:29)
[2023-08-18 13:59] LABS: Syphilis Antibodies Non-reactive
[2023-08-18 15:00] LABS: Group B Strep DNA By PCR Negative (Negative); Internal Control PASS; Probe Check PASS; Specimen Processing Control PASS
--- NOTE | 2023-08-18 15:38 | PCM.PN.BLA ---
Progress Note Pt comfortable. Feeling her ctx's but not painful. No LOF or bleeding. Physical Exam Const alert and no apparent distress Constitutional Narrative: Patient is very comfortable appearing General Appearance: comfortable GI soft to palpation, non-tender and non-distended GI Narrative: Ctx's palpate mild Narrative: Cvx 5/80/-1, vertex, posterior Assessment & Plan Assessment/Plan (1) Late care: (2) History of delivery: (3) labor: PLAN: At bedside to recheck patient 2 hours from initial exam, and cervical exam remains unchanged. Patient still very comfortable appearing, however toco w/ ctx's q 1-2 min with a h/o a precipitous PTD with her first . She reports delivering her first without an epidural and states she delivered within 3 hours of presentation to hospital. Discussed with patient option for transport to a tertiary care center given 32 weeks, but would like to monitor for several more hours to ensure she is stable. Discussed patient and plan of care with MFM production planning supervisor at [facility] who agrees that the following plan is reasonable: Recheck patient 4 hours from last exam and if unchanged, and she is still comfortable appearing OK to transport to tertiary care center. Plan also for a repeat cervical exam just prior to transport to ensure she is stable. Discussed risks with transport, possibly needing transport to a tertiary care center given gestational age, and inability to predict delivery timing with the patient and her partner at bedside and questions answered. (4) 32 weeks gestation of :
[2023-08-18] MEDS: Penicillin G 3,000,000 Units 50 ML 100 UNITS IV (17:47)
--- NOTE | 2023-08-18 19:00 | PCM.PN.BLA ---
Progress Note At bedside to check on pt. She feels her ctx's have lessened but she is still feeling them. No vb or lof. Assessment & Plan Assessment/Plan (1) 32 weeks gestation of : PLAN: Cvx unchanged on exam. FHT reassuring. [place] with ctx's q 2-4 min. Ctx's have spaced apart since admission and pt feels they have improved. Discussed with concert or lecture hall manager MFM at [facility] who is agreeable to transfer as long as her cervical exam just prior to transport is unchanged. Will work on transport to tertiary care center given gestational age as patient at this time appears to be stable with unchanged cervical exam over 6-7 hours, and ctx's improving. (2) labor: (3) History of delivery: (4) Late care:
--- NOTE | 2023-08-18 20:01 | PCM.PN.BLA ---
Progress Note Pt still feeling ctx's. No vb, lof. Assessment & Plan Assessment/Plan (1) Late care: (2) History of delivery: (3) labor: (4) 32 weeks gestation of : PLAN: At bedside to re check patient just prior to transport, and cvx remains unchanged. Spotting on glove likely from prior cervical exams. Transport team taking patient to [facility] for further care.
== END 2023-08-18 20:06 | disposition short-term general hospital (02) | DRG 566 ==
LOC: WPOUT 13:01 → WP 13:01
PROVIDERS: Advanced Practice Midwife; Admitting Provider Obstetrics & Gynecology; Referring Provider Obstetrics & Gynecology; Visit Provider Obstetrics & Gynecology
DX: O60.03 Preterm labor without delivery, third trimester (principal); Z3A.32 32 weeks gestation of pregnancy
CPT/HCPCS: 59025; 59050; 84112; 85025; 86780; 86850; 86900; 86901; 87081; 87653; J7120; J0702

== ENCOUNTER 2023-09-05 16:00 | Outpatient (CLI) | payer MEDICAID, SELFPAY ==
[2023-09-05 16:14] VITALS: BP 105/58; PULSE 94
[2023-09-05 16:16] VITALS: PULSE 94; TEMP 36.5
--- OUTSIDE RECORDS SUMMARY | 2023-09-05 16:19 | XMS RPT_ITS | CCD ---
Author Name Unknown Address [address] [place] [address] Organization [facility] Care Team Providers Care Aboriginal Ceremonial Celebrant Name Role Phone Vitaly, Radha Unavailable Unavailable [...] Doctor Assigned, Nodr Unavailable Unavail able Vitaly, Rahda Unavailable Unavailable Vitaly, Radha Unavailable Unavailable No Doctor Assigned, Nodr Unavailable Unavail able Unknown, Pcp Unavailable Unavailable Stephanycolt Guru Unavailable Unavailable Primary Care Provider Unavailabl yasmin JORDAN, KEHINDE Attending Unavailable KEHINDE JORDAN Admitting Unavailable TAPAN NICOLAS Referring Unavailable XIONG, CORINA Referring Unavailable XIONG, CORINA Attending Unavailable ESETLA ARANAA Attending Unavailable NEDELFINA TREVINO, LINSEY Attending Unavail able KANU ISLAS Attending Unavailable GLORIA HIGHTOWER Attending Unavailable NEYHART TREVINO, LINSEY Attending Unavail able WISHOMAR, EMILIANO Attending Unavailable NEYHART TREVINO, LINSEY Attending Unavail able TERESE ROSAS Referring Unavailable KANU ISLAS Attending Unavailable XIONG, CORINA Referring Unavailable Allergies Allergy Classification Reported Allergen(s) Allergy Type Date of Onset Reaction(s) Facility (1 source) Dust; Translations: [Dust] Propensity [facility] adverse reactions [facility] drug [facility]) Pollen; Translations: [Pollen] Propensity to adverse reactions to drug (disorder) [facility] Repository (1 source) No Known Allergies; Translations: [No Known Allergies] Propensity to adverse reactions to drug (disorder) [facility] Repository (12 sources) house dust allergenic extract; Translations: [HOUSE DUST] Drug Allergy 3 [facility] (12 sources) Ragweed pollen; Translations: [RAGWEED POLLEN] Drug Allergy 3 [facility] (12 sources) Animal Dander; Translations: [ANIMAL DANDER] Drug Allergy 3 [facility] Medications Current Medications Medication Drug Class(es) Dates Sig (Normalized) Sig (Original) acetaminophen 325 mg / HYDROcodone bitartrate 5 mg oral tablet (1 source) Opioid Agonist Start: 03-01-2021 End: 03-03-2021 take 1 tablet by mouth every six hours [place] 5 mg-325 mg oral tablet ; 1 tab(s) orally every 6 hours Quantity: 12 Refills: 0 Ordered: 28-Feb-2021 StephanykarencoletteGuru Start: 28-Feb-2021 End: 02-Mar-2021 Generic Substitution Allowed [...] or feces.Take with food or milk. Problems Active Problems Problem Classification Problem Date Documented Da te Episodic/Chronic Abdominal pain (2 sources) Abdominal pain 02-28-2021 Episodic Past or Other Problems Problem Classification Problem Date Documented Da te Episodic/Chronic Cardiac dysrhythmias (13 sources) Palpitations; Translations: [Palpitations] Onset: 05-24-2023 05-24-2023 Episodic Other complications of (3 sources) Supervision of with history of pre-term labor, third trimester; Translations: [ with history of pre-term labor] Onset: 05-24-2023 05-24-2023 Episodic Other complications of (1 source) Supervision of with insufficient care, unspecified trimester; Translations: [Late care] Onset: 05-24-2023 Episodic Residual codes; unclassified (1 source) 20 weeks gestation of ; Translations: [20 weeks gestation of ] Onset: 05-24-2023 Episodic Results Test Name Value Interpretation Reference Range Facil ity Vital Signs Date Time Vital Sign Value Performing Clinician Facility 07-26-2023 13:58-0500 Body weight 66.22 kg nAita Christiansonholly MEMORIAL ADVISER.SIDEROGRAPHER Work Phone: [facility] 07-26-2023 13:58-0500 Diastolic blood pressure 62 mm[Hg] Anita Christiansonury MEMORIAL ADVISER.SIDEROGRAPHER Work Phone: [facility] 07-26-2023 13:58-0500 Systolic blood pressure 100 mm[Hg] Anita Christiansonury MEMORIAL ADVISER.SIDEROGRAPHER Work Phone: [facility] 07-12-2023 14:51-0500 Body weight 66.86 kg Emiliano Arana MD Work Phone: [facility] 07-12-2023 14:51-0500 Diastolic blood pressure 62 mm[Hg] Emiliano Arana MD Work Phone: [facility] 07-12-2023 14:51-0500 Systolic blood pressure 100 mm[Hg] Emiliano Arana MD Work Phone: [facility] 07-04-2023 08:06-0500 Body weight 65.32 kg Linsey Trevino MD Work Phone: [facility] 07-04-2023 08:06-0500 Diastolic blood pressure 62 mm[Hg] Linsey Trevino MD Work Phone: [facility] 07-04-2023 08:06-0500 Systolic blood pressure 100 mm[Hg] Linsey Trevino MD Work Phone: [facility] 06-11-2023 10:06-0400 Body weight 62.78 kg Terese Ralph MEMORIAL ADVISER.SIDEROGRAPHER Work Phone: [facility] 06-11-2023 10:06-0400 Diastolic blood pressure 62 mm[Hg] Terese Ralph MEMORIAL ADVISER.SIDEROGRAPHER Work Phone: [facility] 06-11-2023 10:06-0400 Systolic blood pressure 96 mm[Hg] Terese Ralph MEMORIAL ADVISER.SIDEROGRAPHER Work Phone: [facility] 05-24-2023 13:10-0400 Body height 165.1 cm Corina Xiong APRN.SIDEROGRAPHER Work Phone: [facility] 05-24-2023 13:10-0400 Body weight 60.78 kg Corina Xiong APRN.SIDEROGRAPHER Work Phone: [facility] 05-24-2023 13:10-0400 Diastolic blood pressure 58 mm[Hg] Corina Xiong APRN.SIDEROGRAPHER Work Phone: [facility] 05-24-2023 13:10-0400 Systolic blood pressure 110 mm[Hg] Corina Xiong APRN.SIDEROGRAPHER Work Phone: [facility] 03-01-2021 01:25-0400 Diastolic blood pressure 90 mm[Hg] Pcp Unknown [facility] 03-01-2021 01:25-0400 Heart rate 70 /min Pcp Unknown [facility] 03-01-2021 01:25-0400 Respiratory rate 16 /min Pcp Unknown [facility] 03-01-2021 01:25-0400 SaO2% (BldA) [Mass fraction] 98 % Pcp Unknown [facility] 03-01-2021 01:25-0400 Systolic blood pressure 110 mm[Hg] Pcp Unknown [facility] 02-28-2021 21:55-0400 Body height 162.5 cm Pcp Unknown [facility] 02-28-2021 21:55-0400 Body temperature 97.52 [degF] Pcp Unknown [facility] 02-28-2021 21:55-0400 Body weight 61 kg Pcp Unknown [facility] 12-18-2017 08:07-0400 Body surface area Derived from formula [facility] Encounters Encounter Date Encounter Type Care Provider Facility Start: 09-02-2023 ambulatory EMILIANO ARANA Facility:[facility] Start: 08-26-2023 End: 08-26-2023 ambulatory LINSEY TREVINO Facility:[facility] Start: 08-22-2023 End: 08-22-2023 ambulatory KANU ISLAS Facility:[facility] Start: 08-20-2023 End: 08-20-2023 ambulatory KEHINDE JORDAN Facility:[facility] Start: 08-18-2023 End: 08-20-2023 Evaluation and management of inpatient KEHINDE JORDAN Facility:[facility] Start: 08-08-2023 End: 08-08-2023 ambulatory GLORIA HIGHTOWER Facility:[facility] Start: 07-29-2023 Telephone encounter Parks Worker RN Maternal Medicine Procedures Date Procedure Procedure Detail Performing Clinician Start: 08-19-2023 Antibody screen KEHINDE LILIBETH LSHE Plan of Treatment Date Care Activity Detail Author Start: 07-12-2033 Urine microalbumin profile DTaP,Tdap,Td Vaccine (3 - Td or Tdap) [facility] Start: 05-20-2028 Urine microalbumin profile DTaP,Tdap,Td Vaccine (2 - Td or Tdap) [facility] Start: 05-24-2026 Pap Testing Pap Testing [facility] Start: 08-14-2023 RSV Vaccine (1 - Ris k 1-dose series) RSV Vaccine (1 - Risk 1-dose series) [facility] Start: 06-11-2023 End: 09-10-2023 CBC W Auto Differential panel - Blood CBC + DIFF Lab Routine 22 weeks gestation of Expected: 06/11/2023, Expires: 09/10/2023 [facility] Work Phone: Immunizations Immunization Date Immunization Notes Care Provider Ailrio richards 07-12-2023 tetanus toxoid, redu marlon diphtheria toxoid, and acellular pertussis vaccine, adsorbed Emiliano Arana MD Work Phone: [facility] Payers Date Payer Category Payer Unknown [id number] 2017 Unknown 2017 Medicaid 1995 Unknown [id number] 2.16.84 0.1.809620.3.579.2 1995 Unknown [id number] 2.16.84 0.1.312382.3.579.2 1995 Unknown [id number] 2.16.84 0.1.426211.3.579.2 1995 Unknown [id number] 2.16.84 0.1.886021.3.579.2. 1995 Unknown [id number] 2.16.84 0.1.338620.3.579.2. 1995 Unknown [id number] 2.16.84 0.1.918365.3.579.2. 1995 Unknown [id number] 2.16.84 0.1.141296.3.579.2. 1995 Unknown [id number] 2.16.84 0.1.254665.3.579.2. 1995 Unknown [id number] 2.16.84 0.1.874783.3.579.2. 1995 Unknown [id number] 2.16.84 0.1.615816.3.579.2. 1995 Unknown [id number] 2.16.84 0.1.024173.3.579.2. 1995 Unknown [id number] 2.16.84 0.1.545965.3.579.2. 1995 Unknown [id number] 2.16.84 0.1.701010.3.579.2. 1995 Unknown [id number] 2.16.84 0.1.827924.3.579.2. 1995 Unknown [id number] 2.16.84 0.1.517989.3.579.2. 1995 Unknown [id number] 2.16.84 0.1.886708.3.579.2. 1995 Unknown [id number] 2.16.84 0.1.043364.3.579.2. 1995 Unknown [id number] 2.16.84 0.1.663883.3.579.2. 1995 Unknown [id number] 2.16.84 0.1.238466.3.579.2. 1995 Unknown [id number] 2.16.84 0.1.172877.3.579.2.717 1995 Unknown [id number] 2.16. 840.1.222498.3.579.2.356 1995 Unknown [id number] 2.16. 840.1.737729.3.579.2.356 1995 Unknown [id number] 2.16. 840.1.114287.3.579.2.356 1995 Unknown [id number] 2.16. 840.1.784612.3.579.2.356 1995 Unknown [id number] 2.16. 840.1.012312.3.579.2.356 Unknown [id number] Social History Date Type Detail Facility [facility] Tobacco smoking consumption unknown [facility] Start: 05-24-2023 Tobacco smoking status NHIS Never smoked tobacco [facility] Start: 05-24-2023 Tobacco use and exposure Smokeless tobacco non-user [facility] Start: 05-24-2023 End: 07-26-2023 Alcohol intake Lifetime non-drinker (finding) [facility] Start: 05-24-2023 End: 07-26-2023 History of Social function [facility] Start: 05-24-2023 End: 07-26-2023 Tobacco use panel [facility] National Score (1-100), lower number is lower risk 71 [facility] Start: 01-16-2023 [facility] Start: 1995 Sex Assigned At Not on file [facility] Goals Date Patient Goal Desired Activity /State Personal health goal Clinical Notes 05-24-2023 to 08-20-2023 Telephone Encounter - Priya Hester RN - 07/29/2023 11:55 AM ESTPrenatal Quick Notes - Ainta Catalan APRN.CNP - 07/26/2023 3:02 PM ESTPatient Niharika Green MA - 07/12/2023 2:50 PM EST Note Date & Type Note Facility 08-20-2023 Note HNO ID: [id number] Author: Magaly Archuleta RN Service: Nursing Author Type: Registered Nurse Type: Procedures Filed: 08/20/2023 9:33 AM Note Text: Attestation signed by Genevieve Maldonado MD at 08/20/2023 10:15 AM M Attending I personally reviewed the heart rate tracing. Reactive NST. Genevieve Maldonado MD 08/20/2023 10:15 AM OBSTETRICS NST SUMMARY SERVICE DATE: August 20, 2023 The patient is a 28 year old female, , who is at 32w6d with an SHI of 10/09/2023, by Last Menstrual Period dating method. NST OBJECTIVE FINDINGS PER NURSE: Start Time: 835 (08/20/23835 : Magaly Archuleta RN) Complete Time: 905 (08/20/23905 : Magaly Archuleta RN) Indications: Labor (08/20/23835 : Magaly Archuleta RN) Patient Reason For: monitor wellbeing (08/20/23835 : Magaly Archuleta RN) NST Explanation: Procedure Explained;Monitor Explained;Verbalizes Understanding (08/20/23835 : Magaly Archuleta RN) Acoustic Stimulator: Interventions: Other (See Comment) (none needed) (08/20/23905 : Magaly Archuleta RN) MONITORING/ASSESSMENT: Baseline: 135 bpm (08/20/23905 : Magaly Archuleta RN) Variability: Moderate (6-25 bpm) (08/20/23905 : Magaly Archuleta RN) Accelerations: Present (08/20/23905 : Magaly Archuleta RN) Decelerations: Decelerations: None (08/20/23905 : Magaly Archuleta RN) Contractions: Not present (08/20/23905 : Magaly Archuleta RN) Frequency: Above information forwarded to Dr Maldonado (08/20/23905 : Magaly Archuleta RN) for final review and interpretation. SIGNATURE: Magaly Archuleta RN PATIENT NAME: Terry Yusuf DATE: August 20, 2023 TIME: 9:33 AM [facility] 08-20-2023 Note HNO ID: [id number] Author: Xenia Murry MD Service: Obstetrics Author Type: Resident Type: Progress Notes Filed: 08/20/2023 5:09 AM Note Text: Attestation signed by Genevieve Maldonado MD at 08/20/2023 8:57 AM MFM Attending Note I have reviewed the progress note obtained and documented by the resident and I personally participated in the telles components. I have discussed the case and management of the patient's care. I agree with the resident's findings and plan of care as documented below. Patient without complaints. Has not appreciated contractions since the evening of 08/17. Plan for formal US today for growth. Discussed possibility of discharge; patient reports that she lives 20 minutes from the hospital and has no transportation issues. We discussed that she does remain at increased risk of a delivery, although the timing of this is uncertain. She notes that she believes she probably was laboring at home for longer than she realized with her first as she did not realize what contractions felt like for her. Given EGA of almost 33 weeks and completion of her steroid course, we discussed that outpatient management is reasonable with strict PTL precautions and very low threshold to seek hospital evaluation. Patient amenable to discharge home this afternoon if she remains stable. All questions answered. Genevieve Maldonado MD I have performed the substantive portion including [id number] and relevant services for a total of >30 minutes OBSTETRICS ANTEPARTUM PROGRESS NOTE SERVICE DATE: 08/20/2023 SERVICE TIME: 5:05 AM Assessment AND Plan : 28 year old EGA:32w6d admitted for threatened labor. Active Hospital Problems Diagnosis Date Noted Threatened labor, antepartum 08/18/2023 Priority: A Overview Note: - admitted at 5cm dilation, has remained stable and monitoring de-escalated - NICU consulted on arrival, s/p consult - UA without evidence of infection - BV negative. 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 1st OB appt at 20 weeks Care Management Consult History of depression 05/24/2023 Overview Note: No medications Coped with a support group Subjective : Patient doing well this morning. States she was not feeling baby move as much last night so put herself on monitor to check FHR. Endorses movement this morning. Denies vaginal bleeding, leakage of fluid, or contractions. Objective : LAST VITALS: Pulse BP Resp O2 Sat Temp Pain 109 135/60 18 96 % 36.8 ?C (98.2 ?F) 0 PHYSICAL EXAM: General: WD, WN Heart: RR Lungs: normal respiratory effort Abdomen: soft, nontender MONITORING/ASSESSMENT: NST pending this am LABS Diagnostic tests reviewed for today's visit: Most recent labs and imaging results. SIGNATURE: Xenia Murry MD PATIENT NAME: Terry Yusuf DATE: August 20, 2023 TIME: 5:06 AM [facility] 08-19-2023 Note HNO ID: [id number] Author: Emiliano Marcum MD Service: Obstetrics Author Type: Resident Type: Progress Notes Filed: 08/19/2023 5:28 AM Note Text: Attestation signed by Kehinde Jordan MD at 08/19/2023 3:31 PM Attending Note I evaluated the patient and personally participated in the telles components. I agree with the resident's findings and plan as documented and have discussed the case and management of the patient's care with the resident. Admitted for monitoring in the setting of ACD. Continue to monitor. Plan for formal US tomorrow morning. NICU has seen her. BP 99/55 Pulse 102 Temp 36.1 ?C (97 ?F) (Temporal Artery) Resp 16 Ht 165.1 cm (5' 5 ) Wt 65.8 kg (145 lb) LMP 01/02/2023 SpO2 97% BMI 24.13 kg/m? Signature: Kehinde Jordan MD Date: 08/19/2023 Time: 3:30 PM OBSTETRICS ANTEPARTUM PROGRESS NOTE SERVICE DATE: 08/19/2023 SERVICE TIME: 5:23 AM Assessment AND Plan : 28 year old EGA:32w5d admitted for Labor arrested at 5 cm dilation. Plan of care discussed with: Provider, RN, Patient. Active Hospital Problems Diagnosis Date Noted Threatened labor, antepartum 08/18/2023 Overview Note: - patient presented to [facility] at 32w4d for evaluation of contractions - patient has history of PTL with spontaneous, precipitous vaginal delivery - 5cm dilated, unchanged on multiple exams. 5/80/0 on arrival to [facility] - received two doses at Penicillin (1300, 1700 at outside hospital) > continued on arrival to [facility] - likely can de-escalate today pending no further cervical change - received BMZ x1 08/18 @1330, second dose this AM at 1330 08/19 - transferred to [facility] for further evaluation and management given Level III NICU - on CEFM overnight - tracing reviewed, isolated variable and late deceleration, isolated spontaneous deceleration x2-3 minutes. Overall very reassuring with moderate variability, accels. Category I FHT. - NICU consulted on arrival, s/p consult - UA without evidence of infection - BV negative. Trich, GC/CT swabs pending on admission - routine GBS collected on admission, pending Prematurity 08/18/2023 Overview Note: - 32 weeks 4 days GA on arrival for threatened labor - BMZ x1 on 08/18, next dose today at 1330 () - GBS unknown, penicillin to be initiated for prophylaxis - can likely de-escalate today pending ongoing clinical stability - GBS collected, pending - CEFM - can likely de-escalate today to NST BID pending ongoing clinical stability - NPO - likely advance to regular diet today - Cephalic presentation - s/p NICU consult - MFM Primary - PPG if for delivery Request for sterilization 08/18/2023 Overview Note: - Desires bilateral tubal ligation - Title 19 signed 07/12/23 per documentation Threatened labor, third trimester 08/18/2023 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) 05/30/2023 Overview Note: HSIL 05/2023 Colposcopy 07/04/23 - demonstrated High grade squamous intraepithelial lesion (OMAR-2). History of labor 05/24/2023 Overview Note: History of at 34 weeks, precipitous (3 hrs after arrival to hospital in G1) delivery of 4lb 11 oz infant premature rupture of membranes > Unknown etiology Delivered at [place], precipitous delivery per report Late care 05/24/2023 Overview Note: Insurance issues were a barrier. 1st OB appt at 20 weeks Care Management Consult History of depression 05/24/2023 Overview Note: No medications Coped with a support group Subjective : She continues to endorse occasional contractions, however states these have continued to space significantly and she is much more comfortable than even when she arrived to [facility]. Still endorses intermittent back pressure No current vaginal bleeding, No current leaking of fluid, Good movement, No shortness of breath or chest pain, No calf tenderness, and No headache, scotoma, or RUQ pain Objective : LAST VITALS: Pulse BP Resp O2 Sat Temp Pain 102 101/55 18 97 % 36.4 ?C (97.5 ?F) 3 PHYSICAL EXAM: General: WD, WN, comfortable, resting comfortably in bed Heart: RR, warm and well perfused Lungs: normal pulmonary exam Abdomen: soft, nontender, gravid Uterus: soft, NT Extremities: no edema MONITORING/ASSESSMENT: testing reassuring - see additional documentation LABS Diagnostic tests reviewed for today's visit: Most recent labs and imaging results. SIGNATURE: Emiliano Marcum MD PATIENT NAME: Terry Yusuf DATE: August 19, 2023 TIME: 5:23 AM [facility] 08-19-2023 Note HNO ID: [id number] Author: Shari Anthony APRN.KHADIJAH Service: Neonatology Author Type: Nurse Practitioner Type: Progress Notes Filed: 08/18/2023 10:50 PM Note Text: NEONATOLOGY CONSULT SERVICE DATE: 08/18/2023 Admission Date: 08/18/2023 SERVICE TIME: 2229 Date of : 1995 Age: [age] year old Sex: female Primary Care Physician: No primary care provider on file. Consulting Coal Inspector: Shari Anthony APRN.SIDEROGRAPHER Subjective Consultation for this evaluation was requested by OB team Reason for consultation: 32w threatened labor; previous 34w precipitous delivery Recommendations will be communicated back to the requesting physician by way of shared medical record or letter. Objective MATERNAL HISTORY: Mother is a 28 year old female, , who is at 32w4d with an SHI of 10/09/2023, by Last Menstrual Period dating method. LMP: Patient's last menstrual period was 01/02/2023. Maternal Hospital Problems: ACTIVE PROBLEM LIST History of Depression History of Labor Late Care Papanicolaou Smear of Cervix With High Grade Squamous Intraepithelial Lesion (Hgsil) Threatened Labor, Antepartum Prematurity Request for Sterilization Threatened Labor, Third Trimester Maternal Meds: No current facility-administered medications on file prior to encounter. Current Outpatient Medications on File Prior to Encounter Medication Sig vit/iron fum/folic ac (-FOLIC ACID ORAL) Take by mouth. Current Facility-Administered Medications Medication Dose Route Frequency acetaminophen 1,000 mg tab(s) (TYLENOL) 1,000 mg ORAL Pre-Op PRN sodium citrate-citric acid 500-334 mg/5 mL 30 mL oral liquid (BICITRA) 30 mL ORAL Pre-Op PRN metoclopramide HCl 10 mg injection (REGLAN) 10 mg INTRAVENOUS Pre-Op PRN tranexamic acid (CYKLOKAPRON) in NaCl 0.7% 1,000 mg 100 mL 1,000 mg INTRAVENOUS Pre-Op PRN NaCl 0.9% iv flush bag 20 mL INTRAVENOUS PRN lactated ringers iv infusion 75 mL/hr INTRAVENOUS CONTINUOUS [START ON 08/19/2023] betamethasone acetate-betamethasone sodium phosphate 12 mg injection (CELESTONE) 12 mg INTRAMUSCULAR ONCE calcium carbonate 500 mg chewable tab(s) (TUMS) 500 mg ORAL BID PRN vitamin with folic acid 1 mg 1 tablet 1 tablet ORAL DAILY docusate sodium 100 mg cap(s) (COLACE) 100 mg ORAL BID PRN ondansetron (PF) 4 mg injection (ZOFRAN) 4 mg INTRAVENOUS q 6 H PRN acetaminophen 1,000 mg tab(s) (TYLENOL) 1,000 mg ORAL q 6 H PRN ceFAZolin iv piggyback 2 g in D5W (iso-osmotic) 100 mL (ANCEF) 2 g INTRAVENOUS Pre-Op PRN azithromycin 500 mg in D5W 250 mL Vial-Bag (ZITHROMAX) 500 mg INTRAVENOUS Pre-Op PRN penicillin G potassium 5 Million Units in D5W 50 mL Vial-Bag 5 Million Units INTRAVENOUS ONCE [START ON 08/19/2023] penicillin G potassium iv piggyback 3 million units in dextrose (iso-osmotic) 50 mL 3 Million Units INTRAVENOUS q 4 HR famotidine 20 mg injection (PEPCID) 20 mg INTRAVENOUS BID complications: labor, Late PNC The following was discussed with mother and father GENERAL: Neonatology presence and role at delivery: Yes Possible need for resuscitation: Yes DNR status: Full resuscitation requested Need for admission to NICU: Yes Offered tour of NICU: No Discharge criteria: Yes Survival odds/morbidity AND mortality: Yes RESPIRATORY Risk of RDS/breathing problems: Yes Possible need for respiratory support: Yes CARDIOVASCULAR Discussed Hypotension, potential medical treatment: No Other (e.g. congenital heart disease): No NEUROLOGIC Risk of IVH/Neuro developmental delays: Yes Discussed need for evaluation by Jewel Bearing Broacher for ROP: No Discussed risk for hearing deficit: No FEN Mother?s Preference: Breast: Yes. Benefits of breast milk: Yes Bottle: Yes ; Prefers to exclusively pump Need for supplemental nutrition and/or IVFs: Yes INFECTION Risk factors for infection- congenital and nosocomial: Yes Need to start antibiotics: Yes HEME Possible need for blood transfusion: No. Verbal consent obtained: No ACCESS Possible need for UAC/UVC/PICC: Yes. Verbal consent obtained: No MISC. Name if Compress Trucker, if known: Unknown, please contact patient's primary care physician Possible need for transfer to outside hospital: Yes Possible need for subspecialty evaluation: Yes Impression/Recommendations Assessment: 32 week mom with threatened labor. Has received 1 dose of celestone. Plan: If patient proceeds to delivery, NICU to be in attendance Physician [id number] total time, including discussion: 30 minutes, more than 50 % of time devoted to coordination of care and/or counseling. SIGNATURE: Shari Anthony APRN.SIDEROGRAPHER PATIENT NAME: Terry Yusuf DATE: August 18, 2023 TIME: 10:47 PM [facility] 07-29-2023 Miscellaneous Notes 2nd risk assessment form submitted 07/29/2023. Priya Hester RN documented in this encounter [facility] 07-26-2023 Miscellaneous Notes S: Terry is a [...] 2 weeks or sooner as needed. Anita Catalan APRN.SIDEROGRAPHER documented in this encounter [facility] 07-26-2023 Instructions Anita Catalan APRN.SIDEROGRAPHER - 07/26/2023 1:38 PM EST [facility] [address] [place] [address] [facility] [address] [place] [address] [facility] [place] [address] [facility] [address] [place] [address] [email or web address] [facility] [address] [place] [address] [facility] [address] [facility] [place] [address] [email or web address] [facility] [address], [place] [address] [email or web address] [facility] [phone] [employer] [address] [place] [address] [facility] [address] [address] Have [place] office also [phone] [email or web address] Industrial X-Ray/[facility]-office/ [facility] [phone] [facility] [address] [place] [address] ACUPUNCTURISTS [facility] Finale [facility], [facility] [place] [address] [place] [address] [email or web address] [facility] [address] [place] [address] [email or web address] SEQUENTIAL SCREENINGS The [facility] offers sequential screenings for women who are [...] It will require an appointment with our power tool repair technician. This is not an ultrasound performed [...] the above symptoms, contact our office at [phone] and ask to speak with a nurse. After hours, you can call doctors registry at [phone] OR call [facility] at [phone] and ask to have the doctor instrumentation and controls technician paged. If you consider this an emergency, dial 9--0 or go to your nearest emergency department. NEED HELP? Are you dealing with a violent or abusive relationship? Are you a victim of rape or sexual assult? Call [facility] ([place]) 24 hour Crisis Hotline: 624.666.3776 or 129-003-5808. MANUAL Your Guide to a Healthy manual is now on-line. Visit [email or web address]/[email or web address] ancyGuide to download your free copy documented in this encounter [facility] 07-23-2023 Miscellaneous Notes Order signed and faxed. Venus Mensah RN Order to to sign. Venus Mensah RN Called [facility] and they will fax another copy. Unable to locate breast pump order and no longer in 's mailbox. Fax sent to [facility] asking for another copy. Venus Mensah RN Breast pump order received from [employer]. To RR to sign. Venus Mensah RN documented in this encounter [facility] 07-12-2023 Note HNO ID: [id number] Author: Niharika Jain MA Service: ? Author Type: Stained Glass Joiner Type: Progress Notes Filed: 07/12/2023 5:15 PM [...] severely ill: Yes Patient denies history of Guillain-Liberty Syndrome (a severe paralytic illness): Yes Tdap Adacel injection was given without incident. See immunizations for details of immunizations administered today. VIS sheet provided: Yes Provider Emiliano Arana DO was present in office at time of injection. Niharika Jain MA [facility] 07-12-2023 Miscellaneous Notes SW- Back pain [...] Emiliano Arana DO documented in this encounter [facility] 07-12-2023 History of Presen t illness Narrative [...] severely ill: Yes Patient denies history of Guillain-Liberty Syndrome (a severe paralytic illness): Yes Tdap Adacel injection was given without incident. See immunizations for details of immunizations administered today. VIS sheet provided: Yes Provider Emiliano Arana DO was present in office at time of injection. Niharika Jain MA documented in this encounter [facility] 07-12-2023 Instructions Niharika Jain MA - 07/12/2023 2:46 PM EST SEQUENTIAL SCREENINGS The [facility] offers sequential screenings for women who are [...] It will require an appointment with our power tool repair technician. This is not an ultrasound performed [...] the above symptoms, contact our office at [phone] and ask to speak with a nurse. After hours, you can call [employer] registry at [phone] OR call [facility] at [phone] and ask to have the doctor instrumentation and controls technician paged. If you consider this an emergency, dial 9-1-4 or go to your nearest emergency department. NEED HELP? Are you dealing with a violent or abusive relationship? Are you a victim of rape or sexual assult? Call [facility] ([place]) 24 hour Crisis Hotline: 153.883.8946 or 128-760-9955. MANUAL Your Guide to a Healthy manual is now on-line. Visit [email or web address]/HealthyPregn ancyGuide to download your free copy documented in this encounter [facility] 07-04-2023 Note HNO ID: [id number] Author: Linsey Jha MD Service: ? Author Type: Physician Type: Progress Notes Filed: 07/04/2023 8:48 AM Note Text: Jewelry Department Supervisor offered: Patient declines. Terry is a 28 [...] delivery-possible leep after delivery Linsey Swanson MD [facility] 07-04-2023 Instructions Kaylee Thomas Ma - [...] your doctor's office. documented in this encounter [facility] 07-04-2023 History of Presen t illness Narrative Jewelry Department Supervisor offered: Patient declines. Terry is a 28 [...] Linsey Swanson MD documented in this encounter [facility] 06-11-2023 Miscellaneous Notes S: Terry Yuusf is a 28 year old female who [...] R10.2 - Reviewed slow movements YOLI Narvaez APRN.SIDEROGRAPHER documented in this encounter [facility] 06-11-2023 Instructions Masters Rowena Foreman - 06/11/2023 9:47 AM EDT SEQUENTIAL SCREENINGS The [facility] offers sequential screenings for women who are [...] It will require an appointment with our power tool repair technician. This is not an ultrasound performed [...] the above symptoms, contact our office at [phone] and ask to speak with a nurse. After hours, you can call doctors registry at [phone] OR call [facility] at [phone] and ask to have the doctor instrumentation and controls technician paged. If you consider this an emergency, dial 4-1-4 or go to your nearest emergency department. NEED HELP? Are you dealing with a violent or abusive relationship? Are you a victim of rape or sexual assult? Call [facility] ([place]) 24 hour Crisis Hotline: 792.794.3224 or 789-616-1456. MANUAL Your Guide to a Healthy manual is now on-line. Visit [email or web address] ancyGuide to download your free copy documented in this encounter [facility] 06-05-2023 Miscellaneous Notes Anatomy ultrasound reviewed. No abnormalities identified. Follow up as clinically indicated. Please place copy in ob chart. Tapan Nicolas MD documented in this encounter [facility] 05-28-2023 Miscellaneous Notes 1st risk assessment form submitted May 28, 2023. JEOVANY Tobias, RN OB Clinical Navigator [phone] documented in this encounter [facility] 05-24-[address] Mckeon (in person) and Dr. Mason (via telepathology) reviewed the case in intradepartmental consultation with concurrence. The interpretation was reported by secure staff message to Corina Xiong APRN, CNP on 05/30/2023 at 16:24. [facility] documented as of this encounter (statuses as of 06/11/2023) [facility]06[facility] History of Past illness Narrative* Problem Noted Date Diagnosed Date Resolved Date Nausea and vomiting during 05/24/2023 06/11/2023 documented as of this encounter (statuses as of 07/04/2023) [facility] History of Past illness Narrative* Problem Noted Date Diagnosed Date Resolved Date Nausea and vomiting during 05/24/2023 06/11/2023 documented as of this encounter (statuses as of 07/12/2023) [facility] History of Past illness Narrative* Problem Noted Date Diagnosed Date Resolved Date Nausea and vomiting during 05/24/2023 06/11/2023 documented as of this encounter (statuses as of 07/23/2023) [facility] History of Past illness Narrative* Problem Noted Date Diagnosed Date Resolved Date Nausea and vomiting during 05/24/2023 06/11/2023 documented as of this encounter (statuses as of 07/27/2023) [facility] History of Past illness Narrative* Problem Noted Date Diagnosed Date Resolved Date Nausea and vomiting during 05/24/2023 06/11/2023 documented as of this encounter (statuses as of 07/29/2023) [facility] Instructions* Patient Instructions* Anita Catalan APRN.KHADIJAH - 05/24/2023 1:12 PM EDT Please select the following link to access the [facility] Your Guide to a Healthy . [email or web address] SEQUENTIAL SCREENINGS The [facility] offers sequential screenings for women who are [...] testing. It will require an appointment withour power tool repair technician. This is not an ultrasound performed [...] the above symptoms, contact our office at [phone] and ask to speak with anurse. After hours, you can call [employer] registry at [phone] OR call [facility] at [phone] ask to have the doctor instrumentation and controls technician paged. If you consider this an emergency, dial 9-1-9 or go to your nearest emergency department. [facility] History of Present illness Narrative* Corina Xiong APRN.KHADIJAH - 05/24/2023 1:00 PM EDT INITIAL OB [...] Screening for delivery: at 34 weeks in [place], [facility] ROM MEDICAL/PSYCHOSOCIAL HISTORY: History of hemorrhage or bleeding [...] use: No Multivitamin with Folic acid: Yes Sikh or heritage: No Would refuse blood transfusion if medically necessary: No Are you currently employed? Yes, Occupation: [employer] Do you have any history of [...] Status:Single Partner: Name: Eder Age: 24 Occupation: [employer] Gender: Male History of STDs: None PAST [...] Your guide to a health and the Directory Clerk. -Discussed aneuploidy and carrier screening. Regarding [...] May consider in future. -Reviewed midwifery and automotive fuel systems converter services that are available. 2. 20 weeks [...] PROM, unknown etiology - Precip delivery at [place] - CONSULT TO MATERNAL MEDI 8. Encounter for Papanicolaou smear for cervical cancer screening - ICD9: V76.2, ICD10: Z12.4 - Completed pelvic and breast exam - check GC/Chlamydia - Encouraged monthly BSE - PAP TEST Follow up as scheduled on June 05 for anatomy ultrasound and OB visit. 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)- Primary [facility]* Diagnosis Encounter for anatomic survey- Primary Late care Insufficient care History of delivery 22 weeks gestation of state, incidental [facility]* Diagnosis Encounter for supervision of other normal in second trimester- Primary 22 weeks gestation of state, incidental 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) Heartburn during in second trimester Heart palpitations Palpitations Pain of round ligament during documented in this encounter [facility] note* Diagnosis 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)- Primary 26 weeks gestation of state, incidental documented in this encounter [facility] note* Diagnosis 27 weeks gestation of - Primary state, incidental Encounter for supervision of other normal in second trimester Need for vaccination Need for prophylactic vaccination and inoculation against unspecified single disease NORAH (stress urinary incontinence, female) Female stress incontinence documented in this encounter [facility] note* Diagnosis 29 weeks gestation of - Primary state, incidental Encounter for supervision of other normal in third trimester documented in this encounter [facility] for referral (narrative)* Outpatient Procedure (Routine) - Pending Review Specialty Diagnoses / Procedures Referred By Mariposa evans Referred To Contact [facility] Diagnoses 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) Procedures COLPOSCOPY COLPOSCOPY CERVIX BX CERVIX & ENDOCRV CURRCorina Gaviria APRN.CNP [address] [address] [facility] [address] [place] [address] Referral ID Status Reason Start Date Expiration Date Visits Requested Visits Authorized [id number] Pending Review Auto-Generat ed Referral 3 05/29/2024 1 1 [facility] for referral (narrative)* Outpatient Procedure (Routine) - Pending Review Specialty Diagnoses / Procedures Referred By Mariposa evans Referred To Contact [facility] Diagnoses 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 Summary Purpose Family History No Family [...] Referral Specialty Diagnoses / Procedures Referred By Contac t Referred To Contact Diagnoses History of labor Encounter for supervision of with history of pre-term labor in third trimester, antepartum Procedures CONSULT TO MATERNAL MEDI OFFICE/OUTPATIENT [facility] MDM 60-74 MINUTES Corina Xiong, SUZANNE.SIDEROGRAPHER [address] [place] [address] Referral ID Status Reason Start Date Expiration Date Visits Requested Visits Authorized [id number] Authorized PCP Requested Referral Auto-Generate d Referral 05/24/2023 05/23/2024 1 1 Specialty Diagnoses / Procedures Referred By Lornaac t Referred To Contact [facility] Diagnoses Encounter for supervision of with history of pre-term labor in third trimester, antepartum Procedures OBSTETRIC ULTRASOUND WHI US PREG UTERUS AFTER 1ST TRIMEST 1/ GESTATION Corina Xiong APRN.SIDEROGRAPHER [address] [place] [address] [facility] [address] [place] [address] Referral ID Status Reason Start Date Expiration Date Visits Requested Visits Authorized [id number] Pending Review Auto-Generat ed Referral 05/24/2023 05/23/2024 1 1 Specialty Diagnoses / Procedures Referred By Contac t Referred To Contact [facility] Diagnoses 27 weeks gestation of NORAH (stress urinary incontinence, female) Procedures CONSULT TO PHYSICAL THERAPY PHYSICAL THERAPY EVALUATION HIGH COMPLEX 45 MINS Emiliano Arana MD [address] [place] [address] [facility] [place] [address] [place] [address] Referral ID Status Reason Start Date Expiration Date Visits Requested Visits Authorized [id number] Pending Review Auto-Generat ed Referral 3 07/11/2024 [...] DATE CREATED AUTHOR AUTHOR'S ORGANIZ ATION 06/19/2018 [facility] DATE CREATED AUTHOR AUTHOR'S ORGANIZ ATION 07/04/2018 [facility] DATE CREATED AUTHOR AUTHOR'S ORGANIZ ATION 03/05/2021 [facility] DATE CREATED AUTHOR AUTHOR'S ORGANIZ ATION 08/21/2023 [facility] DATE CREATED AUTHOR AUTHOR'S ORGANIZ ATION 09/04/2023 [facility] <item> Privacy Markings (unrecogniz ed section [...] or prosecute any alcohol or drug abuse patient.[facility] CenterIn the event this information is protected by the Federal Confidentiality of Alcohol and Drug Abuse Patient Records regulations: The Federal rules restrict any use of the information to criminally investigate or prosecute any alcohol or drug abuse patient.[facility] CenterIn the event this information is protected by the Federal Confidentiality of Alcohol and Drug Abuse Patient Records regulations: The Federal rules restrict any use of the information to criminally investigate or prosecute any alcohol or drug abuse patient.[facility] CenterIn the event this information is protected by the Federal Confidentiality of Alcohol and Drug Abuse Patient Records regulations: The Federal rules restrict any use of the information to criminally investigate or prosecute any alcohol or drug abuse patient.[facility] CenterIn the event this information is protected by the Federal Confidentiality of Alcohol and Drug Abuse Patient Records regulations: The Federal rules restrict any use of the information to criminally investigate or prosecute any alcohol or drug abuse patient.[facility] CenterIn the event this information is protected by the Federal Confidentiality of Alcohol and Drug Abuse Patient Records regulations: The Federal rules restrict any use of the information to criminally investigate or prosecute any alcohol or drug abuse patient.[facility] CenterIn the event this information is protected by the Federal Confidentiality of Alcohol and Drug Abuse Patient Records regulations: The Federal rules restrict any use of the information to criminally investigate or prosecute any alcohol or drug abuse patient.[facility] CenterIn the event this information is protected by the Federal Confidentiality of Alcohol and Drug Abuse Patient Records regulations: The Federal rules restrict any use of the information to criminally investigate or prosecute any alcohol or drug abuse patient.[facility] CenterIn the event this information is protected by the Federal Confidentiality of Alcohol and Drug Abuse Patient Records regulations: The Federal rules restrict any use of the information to criminally investigate or prosecute any alcohol or drug abuse patient.[facility] CenterIn the event this information is protected by the Federal Confidentiality of Alcohol and Drug Abuse Patient Records regulations: The Federal rules restrict any use of the information to criminally investigate or prosecute any alcohol or drug abuse patient.[facility] Reason for Visit (unrecogniz ed section and content) Reason Comments PRAF Initial PRAF Reason Comments US Specialty Diagnoses / Procedures Referred By Contac t Referred To Contact [facility] Diagnoses Late care Procedures OBSTETRIC ULTRASOUND WHI US PREG UTERUS AFTER 1ST TRIMEST GESTATION Tapan Nicolas MD [address] 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 [employer] [facility]. provides no warranty or guarantee of the accuracy or completeness of information in this document.
[2023-09-05 16:24] VITALS: BMI 25.6
[2023-09-05 16:44] LABS: ROM Internal Control Test YES-OK TO RESULT pt. (Internal QC); ROM Patient Test Negative (Negative)
--- NOTE | 2023-09-05 23:32 | OB.TRI.NOTE ---
HPI - General HPI Narrative TERRY CARLOS, is a 28 F who presents with leaking of fluid and contractions. PFSH PFS Medical History (Updated 09/05/23 @ 23:35 by Lesia Cesar CNM) History of pre-term labor depression Home Medications vitamins no.144-folic acid 400 mcg chewable tablet () 2 tab PO DAILY 08/18/23 [History Last Taken 09/04/23 08:00 1 TAB] Allergy/AdvReac Type Severity Reaction Status Date / Time No Known Allergies Allergy Verified 09/05/23 16:23 Social History (Updated 01/15/21 @ 22:[address] Pete Ch, DO) Smoking Status: Former smoker substance use type: does not use History Elective abortions Hx Para 1 Spontaneous abortions Hx # Term Pregnancies Ectopic pregnancies Hx # Pregnancies Multiple births # of living children ROS Eyes Eyes: Denies blurry vision Cardiovascular Cardiovascular: Reports none; Denies chest pain at rest, chest pain with activity or dizziness Respiratory/Chest Respiratory/Chest: Denies cough or dyspnea Gastrointestinal Gastrointestinal: Reports none and other; Denies diarrhea or vomiting Genitourinary Genitourinary: Denies dysuria Musculoskeletal Musculoskeletal: Reports none Integumentary Integumentary: Reports none; Denies rash Neurologic Neurologic: Denies dizziness, headache(s) or other visual disturbances Psychiatric Psychiatric: Reports none Physical Exam Const alert and no apparent distress General Appearance: cooperative Orientation / Consciousness: awake Exam Limitations: no limitations HEENT normocephalic Eyes General Eye: normal appearance of both eyes Neck full ROM Chest inspection of chest normal Resp normal respiratory effort and normal air movement Effort and Inspection: symmetric chest movement Auscultation: clear to auscultation bilaterally Cardio regular rate GI soft to palpation, non-tender and non-distended Inspection: and other Back/Spine normal ROM Extremity full ROM, normal capillary refill and no calf tenderness Skin no rashes or lesions noted Neuro oriented x3 and CN's II-XII intact bilaterally Psych mental status grossly normal Assessment & Plan (1) Late care: COMMENT: First visit at 20 week gestation SHI based on LMP with history of irregular cycles (2) History of delivery: COMMENT: Prior delivery at 34 week gestation (3) 35 weeks gestation of : (4) No leakage of amniotic fluid into vagina: (5) contractions: PLAN: Plan CE 4.5/80/-2 which is unchanged from 2 weeks ago ROM plus- NEGATIVE NST reactive Extended monitoring No cervical change D/C home with follow up in office Dr. Jules involved with plan of care
== END 2023-09-05 18:50 | disposition home or self-care (01) ==
LOC: WPOUT 16:03 → WP 16:03
PROVIDERS: Referring Provider Advanced Practice Midwife; Visit Provider Advanced Practice Midwife
DX: O60.03 Preterm labor without delivery, third trimester (principal); Z3A.35 35 weeks gestation of pregnancy
CPT/HCPCS: 59025; 59050; 84112; 99221; G0378

== ENCOUNTER 2023-09-13 14:01 | Inpatient (IN) | payer MEDICAID, SELFPAY ==
[2023-09-13] VITALS (23 sets, daily range): BP systolic 94–122; BP diastolic 52–71; PULSE 78–126; RESP 16; TEMP 36.8–37; O2SAT 99–100; BMI 25.9
--- OUTSIDE RECORDS SUMMARY | 2023-09-13 14:26 | XMS RPT_ITS | CCD ---
Author Name Unknown Address [address] [place] [address] Organization [facility] Care Team Providers Care Business Unit Leader Name Role Phone Vitaly, Radha Unavailable Unavailable [...] Unavailable Unavail able Unknown, Pcp Unavailable Unavailable Marian Guru Unavailable Unavailable Primary Care Provider Unavailabl KEHINDE Fallon Attending Unavailable KEHINDE JORDAN Admitting Unavailable KANU ISLAS Attending Unavailable GLORIA HIGHTOWER Attending Unavailable NESAJIT TREVINO, LINSEY Attending Unavail able WISWELL, EMILIANO Attending Unavailable NEYHART TREVINO, LINSEY Attending Unavail able TERESE ROSAS Referring Unavailable KANU ISLAS Attending Unavailable CORINA XIONG Referring Unavailable TAPAN NICOLAS Referring Unavailable XIONG CORINA Referring Unavailable XIONG, CORINA Attending Unavailable WISWELL, EMILIANO Attending Unavailable WISWELL, EMILIANO Attending Unavailable NEYHART TREVINO, LINSEY Attending Unavail able Allergies Allergy Classification Reported Allergen(s) Allergy Type Date of Onset Reaction(s) Facility (1 source) Dust; Translations: [Dust] Propensity to adverse reactions to drug (disorder) [facility] (1 source) Pollen; Translations: [Pollen] Propensity to adverse reactions to drug (disorder) [facility] (1 source) No Known Allergies; Translations: [No Known Allergies] Propensity to adverse reactions to drug (disorder) [facility] Repository (12 sources) house dust allergenic extract; Translations: [HOUSE DUST] Drug Allergy 3 [facility] (12 sources) Ragweed pollen; Translations: [RAGWEED POLLEN] Drug Allergy 3 [facility] (12 sources) Animal Dander; Translations: [ANIMAL DANDER] Drug Allergy 3 [facility] Medications Current Medications Medication Drug Class(es) Dates Sig (Normalized) Sig (Original) acetaminophen 325 mg / HYDROcodone bitartrate 5 mg oral tablet (1 source) Opioid Agonist Start: 03-01-2021 End: 03-03-2021 take 1 tablet by mouth every six hours Dacula 5 mg-325 mg oral tablet ; 1 [...] 07-26-2023 13:58-0500 Body weight 66.22 kg Anita Christiansonury DIRECTOR ASSET.FREIGHT ASSOCIATE Work Phone: [facility] 07-26-2023 13:58-0500 Diastolic blood pressure 62 mm[Hg] Anita Haury DIRECTOR ASSET.FREIGHT ASSOCIATE Work Phone: [facility] 07-26-2023 13:58-0500 Systolic blood pressure 100 mm[Hg] Anita Haury DIRECTOR ASSET.FREIGHT ASSOCIATE Work Phone: [facility] 07-12-2023 14:51-0500 Body weight 66.86 kg Emiliano Arana MD Work Phone: [facility] 07-12-2023 14:51-0500 Diastolic blood pressure 62 mm[Hg] Emiliano Arana MD Work Phone: [facility] 07-12-2023 14:51-0500 Systolic blood pressure 100 mm[Hg] Emiliano Arana MD Work Phone: [facility] 07-04-2023 08:06-0500 Body weight 65.32 kg Linsey Trevino MD Work Phone: [facility] 07-04-2023 08:06-0500 Diastolic blood pressure 62 mm[Hg] Linsey Trevino MD Work Phone: [facility] 07-04-2023 08:06-0500 Systolic blood pressure 100 mm[Hg] Linsey Trevino MD Work Phone: [facility] 06-11-2023 10:06-0400 Body weight 62.78 kg Terese Girard DIRECTOR ASSET.FREIGHT ASSOCIATE Work Phone: [facility] 06-11-2023 10:06-0400 Diastolic blood pressure 62 mm[Hg] Terese Girard DIRECTOR ASSET.FREIGHT ASSOCIATE Work Phone: [facility] 06-11-2023 10:06-0400 Systolic blood pressure 96 mm[Hg] Terese Ralph DIRECTOR ASSET.FREIGHT ASSOCIATE Work Phone: [facility] 05-24-2023 13:10-0400 Body height 165.1 cm Corina Xiong APRN.FREIGHT ASSOCIATE Work Phone: [facility] 05-24-2023 13:10-0400 Body weight 60.78 kg Corina Xiong DIRECTOR ASSET.FREIGHT ASSOCIATE Work Phone: [facility] 05-24-2023 13:10-0400 Diastolic blood pressure 58 mm[Hg] Corina Xiong DIRECTOR ASSET.FREIGHT ASSOCIATE Work Phone: [facility] 05-24-2023 13:10-0400 Systolic blood pressure 110 mm[Hg] Corina Xiong DIRECTOR ASSET.FREIGHT ASSOCIATE Work Phone: [facility] 03-01-2021 01:25-0400 Diastolic blood pressure 90 mm[Hg] Pcp Unknown [facility] 03-01-2021 01:25-0400 Heart rate 70 /min Pcp Unknown [facility] 03-01-2021 01:25-0400 Respiratory rate 16 /min Pcp Unknown [facility] 03-01-2021 01:25-0400 SaO2% (BldA) [Mass fraction] 98 % Pcp Unknown [facility] 03-01-2021 01:25-0400 Systolic blood pressure 110 mm[Hg] Pcp Unknown [facility] 02-28-2021 21:55-0400 Body height 162.5 cm Pcp Unknown [facility] 02-28-2021 21:55-0400 Body temperature 97.52 [degF] Pcp Unknown [facility] 02-28-2021 21:55-0400 Body weight 61 kg Pcp Unknown [facility] 12-18-2017 08:07-0400 Body surface area Derived from formula [facility] Encounters Encounter Date Encounter Type Care Provider Facility Start: 09-09-2023 End: 09-09-2023 ambulatory EMILIANO ARANA Facility:[facility] Start: 09-02-2023 End: 09-03-2023 ambulatory EMILIANO ARANA Facility:[facility] Start: 08-26-2023 End: 08-26-2023 ambulatory LINSEY TREVINO Facility:[facility] Start: 08-22-2023 End: 08-22-2023 ambulatory KANU ISLAS Facility:[facility] Start: 08-20-2023 End: 08-20-2023 ambulatory KEHINDE JORDAN Facility:[facility] Start: 08-18-2023 End: 08-20-2023 Evaluation and management of inpatient KEHINDE JORDAN Facility:[facility] Start: 08-08-2023 End: 08-08-2023 ambulatory GLORIA HIGHTOWER Facility:[facility] Start: 07-29-2023 Telephone encounter Audit Specialist RN Maternal Medicine Procedures Date Procedure Procedure Detail Performing Clinician Start: 08-19-2023 Antibody screen KEHINDE MCELROY LSHE Plan of Treatment Date Care Activity Detail Author Start: 07-12-2033 Urine microalbumin profile DTaP,Tdap,Td Vaccine (3 - Td or Tdap) [facility] Start: 05-20-2028 Urine microalbumin profile DTaP,Tdap,Td Vaccine (2 - Td or Tdap) [facility] Start: 05-24-2026 Pap Testing Pap Testing [facility] Start: 08-14-2023 RSV Vaccine (1 - Ris k 1-dose series) RSV Vaccine (1 - Risk 1-dose series) [facility] Start: 06-11-2023 End: 09-10-2023 CBC W Auto Differential panel - Blood CBC + DIFF Lab Routine 22 weeks gestation of Expected: 06/11/2023, Expires: 09/10/2023 [facility] Work Phone: Immunizations Immunization Date Immunization Notes Care Provider Alirio richards 07-12-2023 tetanus toxoid, redu marlon diphtheria toxoid, and acellular pertussis vaccine, adsorbed Emiliano Arana MD Work Phone: [facility] Payers Date Payer Category Payer Unknown [id number] 2017 Unknown 2017 Medicaid 1995 Unknown [id number] 2.16.84 0.1.676790.3.579.2. 1995 Unknown [id number] 2.16.84 0.1.805024.3.579.2 1995 Unknown [id number] 2.16.84 0.1.122791.3.579.2. 1995 Unknown [id number] 2.16.84 0.1.243146.3.579.2. 1995 Unknown [id number] 2.16.84 0.1.228935.3.579.2. 1995 Unknown [id number] 2.16.84 0.1.668306.3.579.2. 1995 Unknown [id number] 2.16.84 0.1.936060.3.579.2. 1995 Unknown [id number] 2.16.84 0.1.617791.3.579.2. 1995 Unknown [id number] 2.16.84 0.1.844712.3.579.2. 1995 Unknown [id number] 2.16.84 0.1.646703.3.579.2. 1995 Unknown [id number] 2.16.84 0.1.122209.3.579.2. 1995 Unknown [id number] 2.16.84 0.1.961124.3.579.2. 1995 Unknown [id number] 2.16.84 0.1.181951.3.579.2. 1995 Unknown [id number] 2.16.84 0.1.111001.3.579.2. 1995 Unknown [id number] 2.16.84 0.1.374132.3.579.2. 1995 Unknown [id number] 2.16.84 0.1.475206.3.579.2. 1995 Unknown [id number] 2.16.84 0.1.808412.3.579.2. 1995 Unknown [id number] 2.16.84 0.1.027669.3.579.2. 1995 Unknown [id number] 2.16.84 0.1.836555.3.579.2.717 1995 Unknown [id number] 2.16.84 0.1.890423.3.579.2.717 1995 Unknown [id number] 2.16. 840.1.420097.3.579.2.356 1995 Unknown [id number] 2.16. 840.1.892934.3.579.2.356 1995 Unknown [id number] 2.16. 840.1.871079.3.579.2.356 1995 Unknown [id number] 2.16. 840.1.840395.3.579.2.356 1995 Unknown [id number] 2.16. 840.1.713204.3.579.2.356 Unknown [id number] Social History Date Type Detail Facility [facility] Tobacco smoking consumption unknown [facility] Start: 05-24-2023 Tobacco smoking status NHIS Never smoked tobacco [facility] Start: 05-24-2023 Tobacco use and exposure Smokeless tobacco non-user [facility] Start: 05-24-2023 End: 07-26-2023 Alcohol intake Lifetime non-drinker (finding) [facility] Start: 05-24-2023 End: 07-26-2023 History of Social function [facility] Start: 05-24-2023 End: 07-26-2023 Tobacco use panel [facility] National Score (1-100), lower number is lower risk 71 [facility] Start: 01-16-2023 [facility] Start: 1995 Sex Assigned At [...] Type Note Facility 08-20-2023 Note HNO ID: [id number] Author: Magaly Archuleta RN Service: Nursing Author Type: Registered Nurse Type: Procedures Filed: 08/20/2023 9:33 AM Note Text: Attestation signed by Genevieve Maldonado MD at 08/20/2023 10:15 AM MFM Attending I personally reviewed the heart rate [...] RN) Complete Time: 905 (08/20/23905 : Magaly Archuleta, RN) Indications: Labor (08/20/23835 : Magaly Archuleta, RN) Patient Reason For: monitor wellbeing (08/20/23835 : Magaly Archuleta, DANY) NST Explanation: Procedure Explained;Monitor Explained;Verbalizes Understanding (08/20/23835 : Magaly Archuleta, DANY) Acoustic Stimulator: Interventions: Other (See Comment) (none needed) (08/20/23905 : Magaly Archuleta, RN) MONITORING/ASSESSMENT: Baseline: 135 bpm (08/20/23905 : [...] 20, 2023 TIME: 9:33 AM [facility] 08-20-2023 Note HNO ID: [id number] Author: Xenia Murry MD Service: Obstetrics Author Type: Resident Type: Progress Notes Filed: 08/20/2023 5:09 AM Note Text: Attestation signed by Genevieve Maldonado MD at 08/20/2023 8:57 AM M Attending Note I have reviewed the progress [...] I have performed the substantive portion including [id number] and relevant services for a total of [...] of membranes > Unknown etiology Delivered at [place], precipitous delivery per report Late care 05/24/2023 [...] 20, 2023 TIME: 5:06 AM [facility] 08-19-2023 Note HNO ID: [id number] Author: Emiliano Marcum MD Service: Obstetrics Author [...] 08/18/2023 Overview Note: - patient presented to [place] at 32w4d for evaluation of contractions - patient has history of PTL with spontaneous, precipitous vaginal delivery - 5cm dilated, unchanged on multiple exams. 580/0 on arrival to [facility] - received two doses at Penicillin (1300, 1700 at outside hospital) > continued on arrival to [facility] - likely can de-escalate today pending no further cervical change - received BMZ x1 08/18 @1330, second dose this AM at 1330 08/19 - transferred to [facility] for further evaluation and management given [...] of membranes > Unknown etiology Delivered at [place], precipitous delivery per report Late care 05/24/2023 [...] comfortable than even when she arrived to [facility]. Still endorses intermittent back pressure No [...] 19, 2023 TIME: 5:23 AM [facility] 08-19-2023 Note HNO ID: [id number] Author: Shari Anthony APRN.KHADIJAH Service: Neonatology Author Type: Nurse Practitioner Type: Progress Notes Filed: 08/18/2023 10:50 PM Note Text: NEONATOLOGY CONSULT SERVICE DATE: 08/18/2023 Admission Date: 08/18/2023 SERVICE TIME: 2229 Date of : 1995 Age: [age] year old Sex: female Primary Care Physician: No primary care provider on file. Consulting Senior Qualitative Researcher: Shari Anthony APRN.FREIGHT ASSOCIATE Subjective Consultation for this evaluation was requested [...] delays: Yes Discussed need for evaluation by Gun Repair Clerk for ROP: No Discussed risk for hearing [...] Verbal consent obtained: No MISC. Name if Tactical Debriefer Officer, if known: Unknown, please contact patient's primary care physician Possible need for transfer to outside hospital: Yes Possible need for subspecialty evaluation: Yes Impression/Recommendations Assessment: 32 week mom with threatened labor. Has received 1 dose of celestone. Plan: If patient proceeds to delivery, NICU to be in attendance Physician [id number] total time, including discussion: 30 minutes, more than 50 % of time devoted to coordination of care and/or counseling. SIGNATURE: Shari Anthony APRN.CNP PATIENT NAME: Terry Yusuf DATE: August 18, 2023 TIME: 10:47 PM [facility] 07-29-2023 Miscellaneous Notes 2nd risk assessment form submitted 07/29/2023. Priya Hester RN documented in this encounter [facility] 07-26-2023 Miscellaneous Notes S: Terry [...] weeks or sooner as needed. Anita Catalan APRN.CNP documented in this encounter [facility] 07-26-2023 Instructions Anita Catalan APRN.CNP - 07/26/2023 1:38 PM EST [facility] [address] [place] [id number] [facility] [address] [place] [address] [facility] [place] [address] [facility] [address] [place] [address] [email or web address] [address] [place] [address] [facility] [address] [place] [address] [email or web address] [email or web address] [address], [place] [address] [email or web address] [facility] [phone] [facility] [address] [place] [address] [facility] [address] [address] [place] office also [phone] [email or web address] [phone] [address] [facility] [address] [place] [address] [facility]UR[facility]uncture [facility], [facility] - [place] [address] [place] [address] [email or web address] [facility] [address] [place], [place] [address] [email or web address] SEQUENTIAL SCREENINGS The [facility] offers sequential screenings for women [...] It will require an appointment with our manufacturing quality technician. This is not an ultrasound performed [...] the above symptoms, contact our office at [phone] and ask to speak with a nurse. After hours, you can call doctors registry at [phone] OR call [facility] at [phone] and ask to have the doctor route sales person paged. If you consider this an emergency, dial or go to your nearest emergency department. NEED HELP? Are you dealing with a violent or abusive relationship? Are you a victim of rape or sexual assult? Call [facility] ([place]) 24 hour Crisis Hotline: 651.478.3307 or 966-668-6695. MANUAL Your Guide to a Healthy manual is now on-line. Visit [email or web address] ancyGuide to download your free copy documented in this encounter [facility] 07-23-2023 Miscellaneous Notes Order signed and faxed. Venus Mensah RN Order to RR to sign. Venus Mensah RN Called [facility] and they will fax another copy. Unable to locate breast pump order and no longer in 's mailbox. Fax sent to [facility] asking for another copy. Venus Mensah RN Breast pump order received from [facility]. To RR to sign. Venus Mensah RN documented in this encounter [facility] 07-12-2023 Note HNO ID: [id number] Author: Niharika Jain MA Service: ? Author Type: Senior Electrical Estimator Type: Progress Notes Filed: 07/12/2023 5:15 PM [...] severely ill: Yes Patient denies history of Guillain-Ithaca Syndrome (a severe paralytic illness): Yes Tdap Adacel injection was given without incident. See immunizations for details of immunizations administered today. VIS sheet provided: Yes Provider Emiliano Arana DO was present in office at time of injection. Niharika Jain MA [facility] 07-12-2023 Miscellaneous Notes SW- Back pain [...] Emiliano Arana DO documented in this encounter [facility] 07-12-2023 History of Presen t [...] severely ill: Yes Patient denies history of Guillain-Ithaca Syndrome (a severe paralytic illness): Yes Tdap Adacel injection was given without incident. See immunizations for details of immunizations administered today. VIS sheet provided: Yes Provider Emiliano Arana DO was present in office at time of injection. Niharika Jain MA documented in this encounter [facility] 07-12-2023 Instructions Niharika Jain MA - 07/12/2023 2:46 PM EST SEQUENTIAL SCREENINGS The [facility] offers sequential screenings for women [...] It will require an appointment with our manufacturing quality technician. This is not an ultrasound performed [...] the above symptoms, contact our office at [phone] and ask to speak with a nurse. After hours, you can call doctors registry at [phone] OR call [facility] at [phone] and ask to have the doctor route sales person paged. If you consider this an emergency, dial [phone]--5 or go to your nearest emergency department. NEED HELP? Are you dealing with a violent or abusive relationship? Are you a victim of rape or sexual assult? Call [facility] ([place]) 24 hour Crisis Hotline: 970.386.8166 or 687-242-1608. MANUAL Your Guide to a Healthy manual is now on-line. Visit [email or web address] ancyGuide to download your free copy documented in this encounter [facility] 07-04-2023 Note HNO ID: [id number] Author: Linsey Jha MD Service: ? Author Type: Physician Type: Progress Notes Filed: 07/04/2023 8:48 AM Note Text: Inserting Operator offered: Patient declines. Terry is a 28 [...] delivery-possible leep after delivery Linsey Swanson MD [facility] 07-04-2023 Instructions Martha Ma Kaylee - 07/04/2023 7:43 AM EST YOUR RECOVERY [...] your doctor's office. documented in this encounter [facility] 07-04-2023 History of Presen t illness Narrative Inserting Operator offered: Patient declines. Terry is a 28 [...] Linsey Swanson MD documented in this encounter [facility] 06-11-2023 Miscellaneous Notes S: Terry Yusuf is [...] R10.2 - Reviewed slow movements YOLI Narvaez APRN.FREIGHT ASSOCIATE documented in this encounter [facility] 06-11-2023 Instructions Masters Rowena Mcelroy - 06/11/2023 9:47 AM EDT SEQUENTIAL SCREENINGS The [facility] offers sequential screenings for women [...] It will require an appointment with our manufacturing quality technician. This is not an ultrasound performed [...] the above symptoms, contact our office at [phone] and ask to speak with a nurse. After hours, you can call doctors registry at [phone] OR call [facility] at [phone] and ask to have the doctor route sales person paged. If you consider this an emergency, dial 2-2-8 or go to your nearest emergency department. NEED HELP? Are you dealing with a violent or abusive relationship? Are you a victim of rape or sexual assult? Call [facility] ([place]) 24 hour Crisis Hotline: 796.944.6935 or 764-174-4961. MANUAL Your Guide to a Healthy manual is now on-line. Visit [email or web address] ancyGuide to download your free copy documented in this encounter [facility] 06-05-2023 Miscellaneous Notes Anatomy ultrasound reviewed. No abnormalities identified. Follow up as clinically indicated. Please place copy in ob chart. Tapan Nicolas MD documented in this encounter [facility] 05-28-2023 Miscellaneous Notes 1st risk assessment form submitted May 28, 2023. JEOVANY Tobias, RN OB Clinical Navigator [phone] documented in this encounter [facility] 05-24-[address] Mckeon (in person) and Dr. Mason (via telepathology) reviewed the case in intradepartmental consultation with concurrence. The interpretation was reported by secure staff message to Corina Xiong APRN, CNP on 05/30/2023 at 16:24. [facility] documented as of this encounter (statuses as of 06/11/2023) [facility]10-06-2023 History of Past illness Narrative* Problem Noted Date Diagnosed Date Resolved Date Nausea and vomiting during 05/24/2023 06/11/2023 documented as of this encounter (statuses as of 07/04/2023) [facility] History of Past illness Narrative* Problem Noted Date Diagnosed Date Resolved Date Nausea and vomiting during 05/24/2023 06/11/2023 documented as of this encounter (statuses as of 07/12/2023) [facility] History of Past illness Narrative* Problem Noted Date Diagnosed Date Resolved Date Nausea and vomiting during 05/24/2023 06/11/2023 documented as of this encounter (statuses as of 07/23/2023) [facility] History of Past illness Narrative* Problem Noted Date Diagnosed Date Resolved Date Nausea and vomiting during 05/24/2023 06/11/2023 documented as of this encounter (statuses as of 07/27/2023) [facility] History of Past illness Narrative* Problem Noted Date Diagnosed Date Resolved Date Nausea and vomiting during 05/24/2023 06/11/2023 documented as of this encounter (statuses as of 07/29/2023) [facility]-06-2023 Instructions* Patient Instructions* Anita Catalan APRN.FREIGHT ASSOCIATE - 05/24/2023 1:12 PM EDT Please select the following link to access the [facility] Your Guide to a Healthy . [email or web address] SEQUENTIAL SCREENINGS The [facility] offers sequential screenings for women [...] testing. It will require an appointment withour manufacturing quality technician. This is not an ultrasound performed [...] the above symptoms, contact our office at [phone] and ask to speak with anurse. After hours, you can call doctors registry at [phone] OR call [facility] at [phone] ask to have the doctor route sales person paged. If you consider this an emergency, dial 9-1-1 or go to your nearest emergency department. [facility] History of Present illness Narrative* [...] Screening for delivery: at 34 weeks in [place], 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 -Discussed aneuploidy and carrier screening. Regarding aneuploidy [...] May consider in future. -Reviewed midwifery and cnc operator programmer services that are available. 2. 20 weeks [...] PROM, unknown etiology - Precip delivery at [place] - CONSULT TO MATERNAL MEDI 8. Encounter for Papanicolaou smear for cervical cancer screening - ICD9: V76.2, ICD10: Z12.4 - Completed pelvic and breast exam - check GC/Chlamydia - Encouraged monthly BSE - PAP TEST Follow up as scheduled on June 05 for anatomy ultrasound and OB visit. 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)- Primary [facility] this [facility]* Diagnosis Encounter for anatomic survey- Primary Late care Insufficient care History of delivery 22 weeks gestation of state, incidental [facility] Diagnosis Encounter for supervision of other normal in second trimester- Primary 22 weeks gestation of state, incidental 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) Heartburn during in second trimester Heart palpitations Palpitations Pain of round ligament during documented [facility] this [facility] Diagnosis 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)- Primary 26 weeks gestation of state, incidental [facility]* Diagnosis 27 weeks gestation of - Primary state, incidental Encounter for supervision of other normal in second trimester Need for vaccination Need for prophylactic vaccination and inoculation against unspecified single disease NORAH (stress urinary incontinence, female) Female stress incontinence documented [facility] this encounter [facility]* Diagnosis 29 weeks gestation of - Primary state, incidental Encounter for supervision of other normal in third trimester documented in this encounter [facility] for referral (narrative)* Outpatient Procedure (Routine) - Pending Review Specialty Diagnoses / Procedures Referred By Mariposa evans Referred To Contact [facility] Diagnoses 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) Procedures COLPOSCOPY COLPOSCOPY CERVIX BX CERVIX & ENDOCRV CURRETAGE Corina Xiong APRN.CNP [address] [place] [address] [place] [id number] Referral ID Status Reason Start Date Expiration Date Visits Requested Visits Authorized [id number] Pending Review Auto-Generat ed Referral 3 05/29/2024 1 1 [facility] for referral (narrative)* Outpatient Procedure (Routine) - Pending Review Specialty Diagnoses / Procedures Referred By Mariposa evans Referred To Contact [facility] Diagnoses 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) 26 weeks gestation of Procedures COLPOSCOPY COLPOSCOPY CERVIX BX CERVIX & ENDOCRV CURRETAGE Linsey Jha MD [address] [place] [address] [facility] [address] [place] [address] Referral ID Status Reason Start Date Expiration Date Visits Requested Visits Authorized [id number] Pending Review Auto-Generat ed Referral 3 07/03/2024 1 1 [facility] Summary Purpose Family History No Family History [...] antepartum Procedures CONSULT TO MATERNAL MEDI OFFICE/OUTPATIENT [facility] MDM 60-74 MINUTES Corina Xiong, SUZANNE.FREIGHT ASSOCIATE [address] [place] [address] Referral ID Status Reason Start Date Expiration Date Visits Requested Visits Authorized [id number] Authorized PCP Requested Referral Auto-Generate d Referral 05/24/2023 05/23/2024 1 1 Specialty Diagnoses / Procedures Referred By Mariposa evans Referred To Contact [facility] Diagnoses Encounter for supervision of with history of pre-term labor in third trimester, antepartum Procedures OBSTETRIC ULTRASOUND WHI US PREG UTERUS AFTER 1ST TRIMEST GESTATION Corina Xiong, SUZANNE.FREIGHT ASSOCIATE [address] [place] [address] [facility] [address] [place] [address] Referral ID Status Reason Start Date Expiration Date Visits Requested Visits Authorized [id number] Pending Review Auto-Generat ed Referral 05/24/2023 05/23/2024 1 1 Specialty Diagnoses / Procedures Referred By Mariposa t Referred To Contact [facility] Diagnoses 27 weeks gestation of NORAH (stress urinary incontinence, female) Procedures CONSULT TO PHYSICAL THERAPY PHYSICAL THERAPY EVALUATION HIGH COMPLEX 45 MINS Emiliano Arana MD [address] [place] [address] [facility] [address] [place] [address] Referral ID Status Reason Start Date Expiration Date Visits Requested Visits Authorized [id number] Pending Review Auto-Generat ed Referral 3 07/11/2024 [...] DATE CREATED AUTHOR AUTHOR'S ORGANIZ ATION 06/19/2018 [facility] DATE CREATED AUTHOR AUTHOR'S ORGANIZ ATION 07/04/2018 [facility] DATE CREATED AUTHOR AUTHOR'S ORGANIZ ATION 03/05/2021 [facility] DATE CREATED AUTHOR AUTHOR'S ORGANIZ ATION 08/21/2023 [facility] DATE CREATED AUTHOR AUTHOR'S ORGANIZ ATION 09/09/2023 [facility] <item> Privacy Markings (unrecogniz ed section [...] or prosecute any alcohol or drug abuse patient.[facility] the event this information is protected by the Federal Confidentiality of Alcohol and Drug Abuse Patient Records regulations: The Federal rules restrict any use of the information to criminally investigate or prosecute any alcohol or drug abuse patient.[facility] the event this information is protected by the Federal Confidentiality of Alcohol and Drug Abuse Patient Records regulations: The Federal rules restrict any use of the information to criminally investigate or prosecute any alcohol or drug abuse patient.[facility] the event this information is protected by the Federal Confidentiality of Alcohol and Drug Abuse Patient Records regulations: The Federal rules restrict any use of the information to criminally investigate or prosecute any alcohol or drug abuse patient.[facility] the event this information is protected by the Federal Confidentiality of Alcohol and Drug Abuse Patient Records regulations: The Federal rules restrict any use of the information to criminally investigate or prosecute any alcohol or drug abuse patient.[facility] Center[facility] the event this information is protected by the Federal Confidentiality of Alcohol and Drug Abuse Patient Records regulations: The Federal rules restrict any use of the information to criminally investigate or prosecute any alcohol or drug abuse patient.[facility] CenterIn the event this information is protected by the Federal Confidentiality of Alcohol and Drug Abuse Patient Records regulations: The Federal rules restrict any use of the information to criminally investigate or prosecute any alcohol or drug abuse patient.[facility] CenterIn the event this information is protected by the Federal Confidentiality of Alcohol and Drug Abuse Patient Records regulations: The Federal rules restrict any use of the information to criminally investigate or prosecute any alcohol or drug abuse patient.[facility] CenterIn the event this information is protected by the Federal Confidentiality of Alcohol and Drug Abuse Patient Records regulations: The Federal rules restrict any use of the information to criminally investigate or prosecute any alcohol or drug abuse patient.[facility] CenterIn the event this information is protected by the Federal Confidentiality of Alcohol and Drug Abuse Patient Records regulations: The Federal rules restrict any use of the information to criminally investigate or prosecute any alcohol or drug abuse patient.[facility] Reason for Visit (unrecogniz ed section and content) Reason Comments PRAF Initial PRAF Reason Comments [place] Specialty Diagnoses / Procedures Referred By Mariposa evans Referred To Contact [facility] Diagnoses Late care Procedures OBSTETRIC ULTRASOUND WHI US PREG UTERUS AFTER 1ST TRIMEST GESTATION Tapan Nicolas MD [address] [place] [address] [facility] [address] [place] [address] Referral ID Status Reason Start Date Expiration Date V isits Requested Visits Authorized [id number] Closed Auto-Generate d Referral 05/15/2023 05/14/2024 1 1 Reason Onset Date Comments Care 06/11/2023 Reason Comments Colposcopy Reason Onset Date Comments Care 07/12/2023 Reason Comments Breast Pump Reason Onset Date Comments Care 07/26/2023 Reason Comments Audit Specialist - Other PRAF FOR RECORDS PERTAINING TO [...] BE BASED ON THE PRIMARY CLINICAL RECORDS. [facility]. provides no warranty or guarantee of the accuracy or completeness of information in this document.
[2023-09-13] MEDS: Lactated Ringers 1,000 ML 200 ML IV (14:30)
[2023-09-13] MEDS: LACTATED RINGERS 500 ML 999 ML IV (14:30)
--- OUTSIDE RECORDS SUMMARY | 2023-09-13 14:37 | XMS RPT_ITS | CCD ---
Author Name Unknown Address [address] [place] [address] Organization [facility] Care Team Providers Care Corporate Development Intern Name Role Phone Vitaly, Radha Unavailable Unavailable [...] Propensity to adverse reactions [facility] drug [facility]disorder[facility] Pollen; Translations: [Pollen] Propensity to adverse reactions to drug (disorder) [facility]) No Known Allergies; Translations: [No Known Allergies] Propensity to adverse reactions to drug (disorder) [facility] (12 sources) house dust allergenic extract; Translations: [HOUSE DUST] Drug Allergy 3 [facility] (12 sources) Ragweed pollen; Translations: [RAGWEED POLLEN] Drug Allergy 3 [facility] (12 sources) Animal Dander; Translations: [ANIMAL DANDER] Drug Allergy 3 [facility] Medications Current Medications Medication Drug Class(es) Dates Sig (Normalized) Sig (Original) acetaminophen 325 mg / HYDROcodone bitartrate 5 mg oral tablet (1 source) Opioid Agonist Start: 03-01-2021 End: 03-03-2021 take 1 tablet by mouth every six hours [place] 5 mg-325 mg oral tablet ; 1 [...] 13:58-0500 Body weight 66.22 kg Anita Christiansonury CANDLE WRAPPING MACHINE OPERATOR.CONFIDENTIAL INVESTIGATOR Work Phone: [facility] 07-26-2023 13:58-0500 Diastolic blood pressure 62 mm[Hg] Anita Haury CANDLE WRAPPING MACHINE OPERATOR.CONFIDENTIAL INVESTIGATOR Work Phone: [facility] 07-26-2023 13:58-0500 Systolic blood pressure 100 mm[Hg] Anita Haury CANDLE WRAPPING MACHINE OPERATOR.CONFIDENTIAL INVESTIGATOR Work Phone: [facility] 07-12-2023 14:51-0500 Body weight 66.86 kg Emiliano Arana MD Work Phone: [facility] 07-12-2023 14:51-0500 Diastolic blood pressure 62 mm[Hg] Emiliano Arana MD Work Phone: [facility] 07-12-2023 14:51-0500 Systolic blood pressure 100 mm[Hg] Emiliano Arana MD Work Phone: [facility] 07-04-2023 08:06-0500 Body weight 65.32 kg Linsey Trevino MD Work Phone: [facility] 07-04-2023 08:06-0500 Diastolic blood pressure 62 mm[Hg] Linsey Trevino MD Work Phone: [facility] 07-04-2023 08:06-0500 Systolic blood pressure 100 mm[Hg] Linsey Trevino MD Work Phone: [facility] 06-11-2023 10:06-0400 Body weight 62.78 kg Terese Ruby CANDLE WRAPPING MACHINE OPERATOR.CONFIDENTIAL INVESTIGATOR Work Phone: [facility] 06-11-2023 10:06-0400 Diastolic blood pressure 62 mm[Hg] Terese Ruby CANDLE WRAPPING MACHINE OPERATOR.CONFIDENTIAL INVESTIGATOR Work Phone: [facility] 06-11-2023 10:06-0400 Systolic blood pressure 96 mm[Hg] Terese Ralph CANDLE WRAPPING MACHINE OPERATOR.CONFIDENTIAL INVESTIGATOR Work Phone: [facility] 05-24-2023 13:10-0400 Body height 165.1 cm Corina Xiong APRN.CONFIDENTIAL INVESTIGATOR Work Phone: [facility] 05-24-2023 13:10-0400 Body weight 60.78 kg Corina Xiong CANDLE WRAPPING MACHINE OPERATOR.CONFIDENTIAL INVESTIGATOR Work Phone: [facility] 05-24-2023 13:10-0400 Diastolic blood pressure 58 mm[Hg] Corina Xiong CANDLE WRAPPING MACHINE OPERATOR.CONFIDENTIAL INVESTIGATOR Work Phone: [facility] 05-24-2023 13:10-0400 Systolic blood pressure 110 mm[Hg] Corina Xiong CANDLE WRAPPING MACHINE OPERATOR.CONFIDENTIAL INVESTIGATOR Work Phone: [facility] 03-01-2021 01:25-0400 Diastolic blood pressure 90 mm[Hg] Pcp Unknown [facility] 03-01-2021 01:25-0400 Heart rate 70 /min Pcp Unknown [facility] 03-01-2021 01:25-0400 Respiratory rate 16 /min Pcp Unknown [facility] 03-01-2021 01:25-0400 SaO2% (BldA) [Mass fraction] 98 % Pcp Unknown [facility] 03-01-2021 01:25-0400 Systolic blood pressure 110 mm[Hg] Pcp Unknown [facility] 02-28-2021 21:55-0400 Body height 162.5 cm Pcp Unknown [facility] 02-28-2021 21:55-0400 Body temperature 97.52 [degF] Pcp Unknown [facility] 02-28-2021 21:55-0400 Body weight 61 kg Pcp Unknown [facility] 12-18-2017 08:07-0400 Body surface area Derived from formula [facility] Encounters Encounter Date Encounter Type Care Provider Facility Start: 09-09-2023 End: 09-09-2023 ambulatory EMILIANO ARANA Facility:[facility] Start: 09-02-2023 End: 09-03-2023 ambulatory EMILIANO ARANA Facility:[facility] Start: 08-26-2023 End: 08-26-2023 ambulatory LINSEY TREVINO Facility:[facility] Start: 08-22-2023 End: 08-22-2023 ambulatory KANU ISLAS Facility:[facility] Start: 08-20-2023 End: 08-20-2023 ambulatory KEHINDE JORDAN Facility:[facility] Start: 08-18-2023 End: 08-20-2023 Evaluation and management of inpatient KEHINDE JORDAN Facility:[facility] Start: 08-08-2023 End: 08-08-2023 ambulatory GLORIA HIGHTOWER Facility:[facility] Start: 07-29-2023 Telephone encounter Label Folder RN Maternal Medicine Procedures Date Procedure Procedure Detail Performing Clinician Start: 08-19-2023 Antibody screen KEHINDE MCELROY LSHE Plan of Treatment Date Care Activity Detail Author Start: 07-12-2033 Urine microalbumin profile DTaP,Tdap,Td Vaccine (3 - Td or Tdap) [facility] Start: 05-20-2028 Urine microalbumin profile DTaP,Tdap,Td Vaccine (2 - Td or Tdap) [facility] Start: 05-24-2026 Pap Testing Pap Testing [facility] Start: 08-14-2023 RSV Vaccine (1 - Ris k 1-dose series) RSV Vaccine (1 - Risk 1-dose series) [facility] Start: 06-11-2023 End: 09-10-2023 CBC W Auto Differential panel - Blood CBC + DIFF Lab Routine 22 weeks gestation of Expected: 06/11/2023, Expires: 09/10/2023 [facility] Work Phone: Immunizations Immunization Date Immunization Notes Care Provider Alirio richards 07-12-2023 tetanus toxoid, redu marlon diphtheria toxoid, and acellular pertussis vaccine, adsorbed Emiliano Arana MD Work Phone: [facility] Payers Date Payer Category Payer Unknown [id number] 2017 Unknown 2017 Medicaid 1995 Unknown [id number] 2.16.84 0.1.171949.3.579.2. 1995 Unknown [id number] 2.16.84 0.1.563606.3.579.2 1995 Unknown [id number] 2.16.84 0.1.629020.3.579.2. 1995 Unknown [id number] 2.16.84 0.1.196793.3.579.2. 1995 Unknown [id number] 2.16.84 0.1.474319.3.579.2. 1995 Unknown [id number] 2.16.84 0.1.161673.3.579.2. 1995 Unknown [id number] 2.16.84 0.1.598000.3.579.2. 1995 Unknown [id number] 2.16.84 0.1.197585.3.579.2. 1995 Unknown [id number] 2.16.84 0.1.818043.3.579.2. 1995 Unknown [id number] 2.16.84 0.1.787120.3.579.2. 1995 Unknown [id number] 2.16.84 0.1.054392.3.579.2. 1995 Unknown [id number] 2.16.84 0.1.273234.3.579.2. 1995 Unknown [id number] 2.16.84 0.1.638398.3.579.2. 1995 Unknown [id number] 2.16.84 0.1.637766.3.579.2. 1995 Unknown [id number] 2.16.84 0.1.177107.3.579.2. 1995 Unknown [id number] 2.16.84 0.1.943471.3.579.2. 1995 Unknown [id number] 2.16.84 0.1.613646.3.579.2. 1995 Unknown [id number] 2.16.84 0.1.876428.3.579.2. 1995 Unknown [id number] 2.16.84 0.1.355160.3.579.2.717 1995 Unknown [id number] 2.16.84 0.1.544970.3.579.2.717 1995 Unknown [id number] 2.16. 840.1.464905.3.579.2.356 1995 Unknown [id number] 2.16. 840.1.855084.3.579.2.356 1995 Unknown [id number] 2.16. 840.1.429669.3.579.2.356 1995 Unknown [id number] 2.16. 840.1.560672.3.579.2.356 1995 Unknown [id number] 2.16. 840.1.941193.3.579.2.356 Unknown [id number] Social History Date Type Detail Facility [facility] Tobacco smoking consumption unknown [facility] Start: 05-24-2023 Tobacco smoking status NHIS Never smoked tobacco [facility] Start: 05-24-2023 Tobacco use and exposure Smokeless tobacco non-user [facility] Start: 05-24-2023 End: 07-26-2023 Alcohol intake Lifetime non-drinker (finding) [facility] Start: 05-24-2023 End: 07-26-2023 History of Social function [facility] Start: 05-24-2023 End: 07-26-2023 Tobacco use panel [facility] National Score (1-100), lower number is lower risk 71 [facility] Start: 01-16-2023 [facility] Start: 1995 Sex Assigned At Not on [...] Type Note Facility 08-20-2023 Note HNO ID: [id number] Author: Magaly Archuleta RN Service: Nursing Author [...] DATE: August 20, 2023 TIME: 9:33 AM [facility] 08-20-2023 Note HNO ID: [id number] Author: Xenia Murry MD Service: Obstetrics Author [...] I have performed the substantive portion including [id number] and relevant services for a total of [...] of membranes > Unknown etiology Delivered at [place], precipitous delivery per report Late care 05/24/2023 [...] DATE: August 20, 2023 TIME: 5:06 AM [facility] 08-19-2023 Note HNO ID: [id number] Author: Emiliano Marcum MD Service: Obstetrics Author [...] 08/18/2023 Overview Note: - patient presented to [place] at 32w4d for evaluation of contractions - patient has history of PTL with spontaneous, precipitous vaginal delivery - 5cm dilated, unchanged on multiple exams. 580/0 on arrival to [facility] - received two doses at Penicillin (1300, 1700 at outside hospital) > continued on arrival to [facility] - likely can de-escalate today pending no further cervical change - received BMZ x1 08/18 @1330, second dose this AM at 1330 08/19 - transferred to [facility] for further evaluation and management given [...] of membranes > Unknown etiology Delivered at [place], precipitous delivery per report Late care 05/24/2023 [...] comfortable than even when she arrived to [facility]. Still endorses intermittent back pressure No [...] DATE: August 19, 2023 TIME: 5:23 AM [facility] 08-19-2023 Note HNO ID: [id number] Author: Shari Anthony APRN.KHADIJAH Service: Neonatology Author Type: Nurse Practitioner Type: Progress Notes Filed: 08/18/2023 10:50 PM Note Text: NEONATOLOGY CONSULT SERVICE DATE: 08/18/2023 Admission Date: 08/18/2023 SERVICE TIME: 2229 Date of : 1995 Age: [age] year old Sex: female Primary Care Physician: No primary care provider on file. Consulting Hand Packer: Shari Anthony APRN.CONFIDENTIAL INVESTIGATOR Subjective Consultation for this evaluation was requested [...] delays: Yes Discussed need for evaluation by Dispatcher Maintenance Service for ROP: No Discussed risk for hearing [...] Verbal consent obtained: No MISC. Name if Die Repair Machinist, if known: Unknown, please contact patient's primary care physician Possible need for transfer to outside hospital: Yes Possible need for subspecialty evaluation: Yes Impression/Recommendations Assessment: 32 week mom with threatened labor. Has received 1 dose of celestone. Plan: If patient proceeds to delivery, NICU to be in attendance Physician [id number] total time, including discussion: 30 minutes, more than 50 % of time devoted to coordination of care and/or counseling. SIGNATURE: Shari Anthony APRN.CNP PATIENT NAME: Terry Yusuf DATE: August 18, 2023 TIME: 10:47 PM [facility] 07-29-2023 Miscellaneous Notes 2nd risk assessment form submitted 07/29/2023. Priya Hester RN documented in this encounter [facility] 07-26-2023 Miscellaneous Notes S: Terry is a [...] Anita Catalan APRN.CNP documented in this encounter [facility] 07-26-2023 Instructions Anita Catalan APRN.CNP - 07/26/2023 1:38 PM EST [facility] [address] [place] [id number] [facility] [address] [place] [address] [facility] [place] [address] [facility] [address] [place] [address] [email or web address] [address] [place] [address] [facility] [address] [place] [address] [email or web address] [facility] [address], [place] [address] [email or web address] [facility] [phone] [facility] [address] [place] [address] [facility] [address] [address] [facility] [place] office also [phone] [email or web address]/ [facility] [phone] [address] [facility] [address] [place] [address] ACUPUNCTURISTS [facility] Ac[facility]uncture [facility], [facility] - [place] [address] [place] [address] [email or web address] [facility] [address] [place], [place] [address] [email or web address] SEQUENTIAL SCREENINGS The [facility] offers sequential screenings for women who are [...] It will require an appointment with our radiation control technician. This is not an ultrasound performed [...] the above symptoms, contact our office at [phone] and ask to speak with a nurse. After hours, you can call doctors registry at [phone] OR call [facility] at [phone] and ask to have the doctor prison psychiatrist paged. If you consider this an emergency, dial or go to your nearest emergency department. NEED HELP? Are you dealing with a violent or abusive relationship? Are you a victim of rape or sexual assult? Call [facility] ([place]) 24 hour Crisis Hotline: 920.893.6232 or 126-293-0479. MANUAL Your Guide to a Healthy manual is now on-line. Visit [email or web address] [email or web address] to download your free copy documented in this encounter [facility] 07-23-2023 Miscellaneous Notes Order signed and faxed. Venus Mensah RN Order to RR to sign. Venus Mensah RN Called [employer] and they will fax another copy. Unable to locate breast pump order and no longer in 's mailbox. Fax sent to [employer] asking for another copy. Venus Mensah RN Breast pump order received from [employer]. To RR to sign. Venus Mensah RN documented in this encounter [facility] 07-12-2023 Note HNO ID: [id number] Author: Niharika Jain MA Service: ? Author Type: Swimming Pool Cleaner Type: Progress Notes Filed: 07/12/2023 5:15 PM [...] severely ill: Yes Patient denies history of Guillain-Montrose Syndrome (a severe paralytic illness): Yes Tdap Adacel injection was given without incident. See immunizations for details of immunizations administered today. VIS sheet provided: Yes Provider Emiliano Arana DO was present in office at time of injection. Niharika Jain MA [facility] 07-12-2023 Miscellaneous Notes SW- Back pain and [...] Emiliano Arana DO documented in this encounter [facility] 07-12-2023 History of Presen t illness Narrative [...] severely ill: Yes Patient denies history of Guillain-Montrose Syndrome (a severe paralytic illness): Yes Tdap Adacel injection was given without incident. See immunizations for details of immunizations administered today. VIS sheet provided: Yes Provider Emiliano Arana DO was present in office at time of injection. Niharika Jain MA documented in this encounter [facility] 07-12-2023 Instructions Niharika Jain MA - 07/12/2023 2:46 PM EST SEQUENTIAL SCREENINGS The [facility] offers sequential screenings for women who are [...] It will require an appointment with our radiation control technician. This is not an ultrasound performed [...] the above symptoms, contact our office at [phone] and ask to speak with a nurse. After hours, you can call doctors registry at [phone] OR call [facility] at [phone] and ask to have the doctor prison psychiatrist paged. If you consider this an emergency, dial 4--3 or go to your nearest emergency department. NEED HELP? Are you dealing with a violent or abusive relationship? Are you a victim of rape or sexual assult? Call [facility] ([place]) 24 hour Crisis Hotline: 765.579.1693 or 177-763-2002. MANUAL Your Guide to a Healthy manual is now on-line. Visit [email or web address] ancyGuide to download your free copy documented in this encounter [facility] 07-04-2023 Note HNO ID: [id number] Author: Linsey Jha MD Service: ? Author Type: Physician Type: Progress Notes Filed: 07/04/2023 8:48 AM Note Text: Smart Energy Specialist offered: Patient declines. Terry is a [...] delivery-possible leep after delivery Linsey Swanson MD [facility] 07-04-2023 Instructions Martha Ma Kaylee - 07/04/2023 [...] your doctor's office. documented in this encounter [facility] 07-04-2023 History of Presen t illness Narrative Smart Energy Specialist offered: Patient declines. Terry is a [...] Linsey Swanson MD documented in this encounter [facility] 06-11-2023 Miscellaneous Notes S: Terry Yusuf is [...] R10.2 - Reviewed slow movements YOLI Narvaez APRN.CONFIDENTIAL INVESTIGATOR documented in this encounter [facility] 06-11-2023 Instructions Masters Rowena Mcelroy - 06/11/2023 9:47 AM EDT SEQUENTIAL SCREENINGS The [facility] offers sequential screenings for women who are [...] It will require an appointment with our radiation control technician. This is not an ultrasound performed [...] the above symptoms, contact our office at [phone] and ask to speak with a nurse. After hours, you can call doctors registry at [phone] OR call [facility] at [phone] and ask to have the doctor prison psychiatrist paged. If you consider this an emergency, dial 6-6- or go to your nearest emergency department. NEED HELP? Are you dealing with a violent or abusive relationship? Are you a victim of rape or sexual assult? Call [facility] ([place]) 24 hour Crisis Hotline: 981.906.2025 or 698-681-0982. MANUAL Your Guide to a Healthy manual is now on-line. Visit [email or web address] ancyGuide to download your free copy documented in this encounter [facility] 06-05-2023 Miscellaneous Notes Anatomy ultrasound reviewed. No abnormalities identified. Follow up as clinically indicated. Please place copy in ob chart. Tapan Nicolas MD documented in this encounter [facility] 05-28-2023 Miscellaneous Notes 1st risk assessment form submitted May 28, 2023. JEOVANY Tobias, RN OB Clinical Navigator [phone] documented in this encounter [facility] 05-24-[address] Mckeon (in person) and Dr. Mason (via telepathology) reviewed the case in intradepartmental consultation with concurrence. The interpretation was reported by secure staff message to Corina Xiong APRN, CNP on 05/30/2023 at 16:24. [facility] documented as of this encounter (statuses as of 06/11/2023) [facility]10-06-2023 History of Past illness Narrative* Problem Noted Date Diagnosed Date Resolved Date Nausea and vomiting during 05/24/2023 06/11/2023 documented as of this encounter (statuses as of 07/04/2023) [facility]-06-2023 History of Past illness Narrative* Problem Noted Date Diagnosed Date Resolved Date Nausea and vomiting during 05/24/2023 06/11/2023 documented as of this encounter (statuses as of 07/12/2023) [facility]2023 History of Past illness Narrative* Problem Noted Date Diagnosed Date Resolved Date Nausea and vomiting during 05/24/2023 06/11/2023 documented as of this encounter (statuses as of 07/23/2023) [facility] History of Past illness Narrative* Problem Noted Date Diagnosed Date Resolved Date Nausea and vomiting during 05/24/2023 06/11/2023 documented as of this encounter (statuses as of 07/27/2023) [facility] History of Past illness Narrative* Problem Noted Date Diagnosed Date Resolved Date Nausea and vomiting during 05/24/2023 06/11/2023 documented as of this encounter (statuses as of 07/29/2023) [facility]10-06-2023 Instructions* Patient Instructions* Anita Catalan APRN.CONFIDENTIAL INVESTIGATOR - 05/24/2023 1:12 PM EDT Please select the following link to access the [facility] Your Guide to a Healthy . [email or web address] SEQUENTIAL SCREENINGS The [facility] offers sequential screenings for women who are [...] testing. It will require an appointment withour radiation control technician. This is not an ultrasound performed [...] the above symptoms, contact our office at [phone] and ask to speak with anurse. After hours, you can call doctors registry at [phone] OR call [facility] at [phone] ask to have the doctor prison psychiatrist paged. If you consider this an emergency, dial 9-1-1 or go to your nearest emergency department. [facility] History of Present illness Narrative* Corina Xiong [...] Screening for delivery: at 34 weeks in [place], [facility] MEDICAL/PSYCHOSOCIAL HISTORY: History of hemorrhage or [...] use: No Multivitamin with Folic acid: Yes Muslim or heritage: No Would refuse blood transfusion if medically necessary: No Are you currently employed? Yes, Occupation: [employer] Do you have any history of depression, [...] Status:Single Partner: Name: Eder Age: 24 Occupation: [employer] Gender: Male History of STDs: None PAST [...] Your guide to a health and the Dialysis Social Worker. -Discussed aneuploidy and carrier screening. Regarding aneuploidy [...] May consider in future. -Reviewed midwifery and drapery maker services that are available. 2. 20 weeks [...] PROM, unknown etiology - Precip delivery at [place] - CONSULT TO MATERNAL MEDI 8. Encounter for Papanicolaou smear for cervical cancer screening - ICD9: V76.2, ICD10: Z12.4 - Completed pelvic and breast exam - check GC/Chlamydia - Encouraged monthly BSE - PAP TEST Follow up as scheduled on June 05 for anatomy ultrasound and OB visit. 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* Diagnosis 27 weeks gestation of - Primary state, incidental Encounter for supervision of other normal in second trimester Need for vaccination Need for prophylactic vaccination and inoculation against unspecified single disease NORAH (stress urinary incontinence, female) Female stress incontinence [facility]* Diagnosis 29 weeks gestation of - Primary state, incidental Encounter for supervision of other normal in third trimester documented in this encounter [facility] for referral (narrative)* Outpatient Procedure (Routine) - Pending Review Specialty Diagnoses / Procedures Referred By Mariposa evans Referred To Contact [facility] Diagnoses 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) Procedures COLPOSCOPY COLPOSCOPY CERVIX BX CERVIX & ENDOCRV CURRETAGE Corina Xiong APRN.CNP 721 [place] [address] [place] [address] [place] [phone] Referral ID Status Reason Start Date Expiration Date Visits Requested Visits Authorized [id number] Pending Review Auto-Generat ed Referral 3 05/29/2024 1 1 [facility] for referral (narrative)* Outpatient Procedure (Routine) - Pending Review Specialty Diagnoses / Procedures Referred By Mariposa evans Referred To Contact [facility] Diagnoses 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) 26 weeks gestation of Procedures COLPOSCOPY COLPOSCOPY CERVIX BX CERVIX & ENDOCRV CURRETAGE Linsey Jha MD [address] [place] [address] [facility] [address] [place] [address] Referral ID Status Reason Start Date Expiration Date Visits Requested Visits Authorized [id number] Pending Review Auto-Generat ed Referral 3 07/03/2024 1 1 [facility] Summary Purpose Family History No [...] antepartum Procedures CONSULT TO MATERNAL MEDI OFFICE/OUTPATIENT [facility] MDM 60-74 MINUTES Corina Xiong, SUZANNE.CONFIDENTIAL INVESTIGATOR [address] [place] [address] Referral ID Status Reason Start Date Expiration Date Visits Requested Visits Authorized [id number] Authorized PCP Requested Referral Auto-Generate d Referral 05/24/2023 05/23/2024 1 1 Specialty Diagnoses / Procedures Referred By Mariposa evans Referred To Contact [facility] Diagnoses Encounter for supervision of with history of pre-term labor in third trimester, antepartum Procedures OBSTETRIC ULTRASOUND WHI US PREG UTERUS AFTER 1ST TRIMEST GESTATION Corina Xiong, SUZANNE.CONFIDENTIAL INVESTIGATOR [address] [place] [address] [facility] [address] [place] [address] Referral ID Status Reason Start Date Expiration Date Visits Requested Visits Authorized [id number] Pending Review Auto-Generat ed Referral 05/24/2023 05/23/2024 1 1 Specialty Diagnoses / Procedures Referred By Mariposa t Referred To Contact [facility] Diagnoses 27 weeks gestation of NORAH (stress urinary incontinence, female) Procedures CONSULT TO PHYSICAL THERAPY PHYSICAL THERAPY EVALUATION HIGH COMPLEX 45 MINS Emiliano Arana MD [address] [place] [address] [facility] [place] [address] [place] [address] Referral ID Status Reason Start Date Expiration Date Visits Requested Visits Authorized [id number] Pending Review Auto-Generat ed Referral 3 07/11/2024 [...] DATE CREATED AUTHOR AUTHOR'S ORGANIZ ATION 06/19/2018 [facility] DATE CREATED AUTHOR AUTHOR'S ORGANIZ ATION 07/04/2018 [facility] DATE CREATED AUTHOR AUTHOR'S ORGANIZ ATION 03/05/2021 [facility] DATE CREATED AUTHOR AUTHOR'S ORGANIZ ATION 08/21/2023 [facility] DATE CREATED AUTHOR AUTHOR'S ORGANIZ ATION 09/09/2023 [facility] <item> Privacy Markings (unrecogniz ed section and [...] or prosecute any alcohol or drug abuse patient.[facility] HealthIn the event this information is protected by the Federal Confidentiality of Alcohol and Drug Abuse Patient Records regulations: The Federal rules restrict any use of the information to criminally investigate or prosecute any alcohol or drug abuse patient.[facility] HealthIn the event this information is protected by the Federal Confidentiality of Alcohol and Drug Abuse Patient Records regulations: The Federal rules restrict any use of the information to criminally investigate or prosecute any alcohol or drug abuse patient.[facility] HealthIn the event this information is protected by the Federal Confidentiality of Alcohol and Drug Abuse Patient Records regulations: The Federal rules restrict any use of the information to criminally investigate or prosecute any alcohol or drug abuse patient.[facility] HealthIn the event this information is protected by the Federal Confidentiality of Alcohol and Drug Abuse Patient Records regulations: The Federal rules restrict any use of the information to criminally investigate or prosecute any alcohol or drug abuse patient.[facility] HealthIn the event this information is protected by the Federal Confidentiality of Alcohol and Drug Abuse Patient Records regulations: The Federal rules restrict any use of the information to criminally investigate or prosecute any alcohol or drug abuse patient.[facility] HealthIn the event this information is protected by the Federal Confidentiality of Alcohol and Drug Abuse Patient Records regulations: The Federal rules restrict any use of the information to criminally investigate or prosecute any alcohol or drug abuse patient.[facility] HealthIn the event this information is protected by the Federal Confidentiality of Alcohol and Drug Abuse Patient Records regulations: The Federal rules restrict any use of the information to criminally investigate or prosecute any alcohol or drug abuse patient.[facility] HealthIn the event this information is protected by the Federal Confidentiality of Alcohol and Drug Abuse Patient Records regulations: The Federal rules restrict any use of the information to criminally investigate or prosecute any alcohol or drug abuse patient.[facility] HealthIn the event this information is protected by the Federal Confidentiality of Alcohol and Drug Abuse Patient Records regulations: The Federal rules restrict any use of the information to criminally investigate or prosecute any alcohol or drug abuse patient.[facility] Reason for Visit (unrecogniz ed section and content) Reason Comments PRAF Initial PRAF Reason Comments US Specialty Diagnoses / Procedures Referred By Mariposa evans Referred To Contact [facility] Diagnoses Late care Procedures OBSTETRIC ULTRASOUND WHI US PREG UTERUS AFTER 1ST TRIMEST GESTATION Tapan Nicolas MD [address] [place] [address] [facility] [address] [place] [address] Referral ID Status Reason Start Date Expiration Date V isits Requested Visits Authorized [id number] Closed Auto-Generate d Referral 05/15/2023 05/14/2024 1 1 Reason Onset Date Comments Care 06/11/2023 Reason Comments Colposcopy Reason Onset Date Comments Care 07/12/2023 Reason Comments Breast Pump Reason Onset Date Comments Care 07/26/2023 Reason Comments Label Folder - Other PRAF FOR RECORDS PERTAINING TO [...] BE BASED ON THE PRIMARY CLINICAL RECORDS. [facility]. provides no warranty or guarantee of the accuracy or completeness of information in this document.
--- NOTE | 2023-09-13 14:42 | PCM.HP.OB ---
HPI - General General Date of Admission: 09/13/23 HPI Narrative TERRY CARLOS, is a 28 F who presents at 36w2d in active labor . History of and precipitous . Did not feel large gush of fluid, no vaginal bleeding. Maternal Data Information SHI Calculator Estimated Delivery Date Method Current WG Current Estimate 10/09/23 Manual 36w 2d PFSH PFSH Medical History (Updated 09/13/23 @ 14:51 by Debby Gonzales CNM) History of pre-term labor depression Home Medications vitamins no.144-folic acid 400 mcg chewable tablet () 2 tab PO DAILY 08/18/23 [History Last Taken 09/12/23 22:00] Allergy/AdvReac Type Severity Reaction Status Date / Time No Known Allergies Allergy Verified 09/13/23 14:27 Social History (Updated 01/15/21 @ 22:[address] Pete Ch, DO) Smoking Status: Former smoker substance use type: does not use History Elective abortions Hx Para 1 Spontaneous abortions Hx # Term Pregnancies Ectopic pregnancies Hx # Pregnancies Multiple births # of living children NST FHR Rate Baby A Baseline: 145 Variability:: Moderate Accelerations:: 15 x 15 Decelerations:: None FHR Category:: Category I Uterine Activity:: every 1-2 minutes ROS Constitutional Constitutional: Reports systems reviewed and no addt'l complaints, except as documented; Denies headache(s) Eyes Eyes: Denies acute decrease in peripheral vision, blurry vision or change in vision ENT HEENT: Reports systems reviewed and no addt'l complaints, except as documented Cardiovascular Cardiovascular: Denies chest pain or dizziness Respiratory/Chest Respiratory/Chest: Denies cough, dyspnea, dyspnea on exertion, shortness of breath at rest or shortness of breath with exertion Gastrointestinal Gastrointestinal: Denies abdominal pain, diarrhea, nausea or vomiting Genitourinary Genitourinary: Denies abdominal discomfort Musculoskeletal Musculoskeletal: Denies limited range of motion Integumentary Integumentary: Reports systems reviewed and no addt'l complaints, except as documented Neurologic Neurologic: Reports systems reviewed and no addt'l complaints, except as documented Psychiatric Psychiatric: Reports systems reviewed and no addt'l complaints, except as documented Endocrine Endocrinology: Reports systems reviewed and no addt'l complaints, except as documented Hematologic/Lymphatic Hematologic/Lymphatic: Reports systems reviewed and no addt'l complaints, except as documented Allergic/Immunologic Allergic/Immunologic: Reports systems reviewed and no addt'l complaints, except as documented Vital Signs Vital Signs Vital Signs: Weight Weight: 156 lb Body Mass Index (BMI) 25.9 Physical Exam Const alert and oriented x3 General Appearance: cooperative Orientation / Consciousness: awake, oriented to person, oriented to place and oriented to time Exam Limitations: no limitations HEENT normocephalic Head and Scalp: normal to inspection, normocephalic and atraumatic Face and Sinus: normal facial exam Eyes General Eye: normal appearance of both eyes Neck full ROM Chest Chest: symmetrical chest wall rise Resp normal respiratory effort and normal air movement Auscultation: clear to auscultation bilaterally Cardio regular rate, regular rhythm, S1 normal heart sound, S2 normal heart sound, no murmurs, no rub, no gallops and no clicks GI normal to inspection, nondistended, normoactive bowel sounds and non-tender appearance of the vagina normal Bladder / Kidney Exam: no CVA tenderness Manual OB Exam: estimated gestational size appropriate, presentation cephalic, dilated 7cm, effaced 90, station -1 and other Exam completed by nursing staff. No membranes felt, presume PPROM Back/Spine normal ROM Extremity normal to inspection and full ROM Skin no rashes or lesions noted Neuro oriented x3, CN's II-XII intact bilaterally and moves all extremities Sensorium / Orientation: awake, alert and oriented to person Motor Exam: clonus absent Deep Tendon Reflexes: Rt Patellar (L4): 2+ and Lt Patellar (L4): 2+ Labs Labs Labs: Blood Type Pending Antibody Screen NEGATIVE Hct 36.5 % (37-47) L Hgb 12.1 g/dL (12.0-15.0) Syphilis Total Ab Non-reactive Group B Strep DNA Negative (Negative) GBS negative GC/CT negative O positive RPR negative HIV negative HBsAG negative Hep C negative Rubella Immune Assessment & Plan (1) 36 weeks gestation of : (2) premature rupture of membranes (PPROM) with unknown onset of labor: COMMENT: History of labor during current at 32w4d. Given BMX x2 08/18 and 08/19 (3) History of delivery: COMMENT: Prior delivery at 34 week gestation (4) Late care: COMMENT: First visit at 20 week gestation SHI based on LMP with history of irregular cycles (5) HGSIL (high grade squamous intraepithelial dysplasia): COMMENT: OMAR 2 Colposcopy 07/04/23 PLAN: Plan 1) Admit to labor and delivery 2) Continuous EFM 3) Routine labs 4) IV 5) Requesting epidural for pain management if possible 6) History of labor during current at 32w4d. Given BMX x2 08/18 and 08/19. 7) GBS negative 8) collaborative physician and notified of patient admission, above assessment and plan and patient status.
[2023-09-13 14:44] LABS: Absolute Lymphocyte Count 1.46 X10^3/uL (0.83-4.51); Absolute Neutrophil Count 7.5 X10^3/uL (2.0-7.7); Basophil# 0.07 X10^3/uL; Basophil% 0.7 % (0-1); Eosinophil# 0.06 X10^3/uL; Eosinophils% 0.6 % (0-5); Hematocrit 36.5 % (37-47); Hemoglobin 12.1 g/dL (12.0-15.0); Lymphocyte # 1.46 X10^3/ul (0.83-4.51); Lymphocyte % 14.4 % (19-41); Mean Corp Hgb Conc 33.2 g/dL (32-36); Mean Corpuscular Hgb 29.3 pg (27.0-32.0); Mean Corpuscular Volume 88.4 fL (81-99); Mean Platelet Vol. 11.4 fl (6.2-12.0); Monocyte% 8.9 % (0-10); NRBC Flagged by Analyzer 0 % (0-5); Neutrophil # 7.52 X10^3/uL (2.7-7.7); Neutrophil % 74.2 % (47-70); Platelet Count 276 K/mm3 (150-450); RBC Distribution Width CV 13.7 % (11.6-14.6); RBC Distribution Width SD 44.1 fl (35.1-43.9); Red Blood Count 4.13 M/mm3 (4.2-5.4); White Blood Count 10.1 K/mm3 (4.4-11.0)
[2023-09-13] MEDS: fentaNYL-bupivacaine (epidural) 100 ML BAG EPIDURAL (15:11)
[2023-09-13 15:23] LABS: Syphilis Antibodies Non-reactive
[2023-09-13] MEDS: Oxytocin 10 UNITS/ML Vial IM (16:04)
[2023-09-13] MEDS: Oxytocin 15 Units/NS 250ml 15 UNITS/250 ML IV.SOLN 83 UNITS IV (16:04)
--- NOTE | 2023-09-13 16:21 | EX.PCM.OBRPT ---
Assessment & Plan (1) delivery: (2) Vaginal delivery: (3) Lactating mother: Maternal Data Information SHI Calculator Estimated Delivery Date Method Current WG Current Estimate 10/09/23 Manual 36w 2d Vaginal Delivery Maternal Presentation Maternal Presentation: Active Labor Operative Information Date of Procedure: 09/13/23 Pre-Operative Diagnosis: Labor at 36w2d Post-Operative Diagnosis: Surgery / Procedure Performed: Spontaneous Vaginal Delivery Type of Anesthesia: Epidural Estimated Blood Loss: 150 ml Time of Delivery: 15:58 Findings Description of Procedure: Progressed to complete with urge to push. Epidural for pain management. of viable female over intact perineum. APGARS 8,9 respectively. head delivered with compound presentation of right hand, body immediately forthcoming. Placed on maternal abdomen, strong cry. Mouth and nares suctioned for secretions. Pitocin started for active 3rd stage management. Cord doubly clamped and cut by FOB after pulsations ceased, delayed cord clamping. Placenta delivered intact via blue, 3 vessel cord intact. Perineum inspected and intact. Fundus firm and hemostasis achieved. EBL 150ml. Mom and baby stable, planning to pump breast milk. Family bonding well. Dr. Arana notified of delivery, collaborative physician, notified of patient status and of above assessment and plan Presentation: Vertex and CARMEN (compound presentation of right hand) Amniotic Membrane Rupture Type: Artificial Amniotic Fluid Description: Clear Placental Delivery Description: Spontaneous Placenta Disposition: [facility] Cord Vessel Description: 3 Vessels Cord Entanglement: None A Gender: Female (1 minute): 8 (5 minute): 9 Delayed Cord Clamping: Yes Post Vaginal Delivery Medications Given After Delivery: IV Pitocin and IM Pitocin Episiotomy Description: None Laceration: None Complication Complications: None
[2023-09-13] MEDS: Ibuprofen 600 MG Tablet PO (22:24)
[2023-09-14] VITALS (11 sets, daily range): BP systolic 105–148; BP diastolic 56–65; PULSE 88–101; RESP 16; TEMP 36.1–37.1; O2SAT 97–99
--- NOTE | 2023-09-14 02:51 | PN.OBGYN_ITS ---
Subjective Subjective Doing well per patient and nursing staff. Ambulating and taking PO without difficulty. Voiding and passing flatus. Pain controlled. , services for assistance. Denies headache, visual changes, chest pain, shortness of breath, leg pain or increased bleeding. Lochia normal. Objective Data Objective Data Vital Signs: Vital Signs Temp Pulse Resp BP Pulse Ox O2 Del Method 97 F L 101 H 16 119/56 L 97 Room Air 09/14/23 00:37 09/14/23 00:37 09/14/23 00:37 09/14/23 00:37 09/14/23 00:37 09/14/23 00:37 Oxygen Delivery Method Room Air Weight: 156 lb Body Mass Index (BMI) 25.9 Intake & Output: Intake and Output for Last 24 Hours 09/12/23 09/13/23 09/14/23 23:59 23:59 23:59 Intake Total 1066.67 / 1066.67 Output Total 750 / 750 Balance 316.67 / 316.67 Lab / Micro Data 09/13/23 14:30 Labs: Laboratory Results - last 24 hr 09/13/23 14:30: WBC 10.1, RBC 4.13 L, Hgb 12.1, Hct 36.5 L, MCV 88.4, MCH 29.3, MCHC 33.2, RDW Std Deviation 44.1 H, RDW Coeff of Pablo 13.7, Plt Count 276, MPV 11.4, Immature Gran % (Auto) 1.200 H, Neut % (Auto) 74.2 H, Lymph % (Auto) 14.4 L, [place] % (Auto) 8.9, Eos % (Auto) 0.6, Baso % (Auto) 0.7, Absolute Neuts (auto) 7.5, Absolute Lymphs (auto) 1.46, Nucleated RBC % 0, Syphilis Total Ab Non- reactive, Blood Type O POSITIVE, Antibody Screen NEGATIVE ROS Constitutional Constitutional: Reports systems reviewed and no addt'l complaints, except as documented; Denies headache(s) Eyes Eyes: Denies acute decrease in peripheral vision, blurry vision or change in vision ENT HEENT: Reports systems reviewed and no addt'l complaints, except as documented Cardiovascular Cardiovascular: Denies chest pain or dizziness Respiratory/Chest Respiratory/Chest: Denies cough, dyspnea, dyspnea on exertion, shortness of breath at rest or shortness of breath with exertion Gastrointestinal Gastrointestinal: Denies abdominal pain, diarrhea, nausea or vomiting Genitourinary Genitourinary: Denies abdominal discomfort Musculoskeletal Musculoskeletal: Denies limited range of motion Integumentary Integumentary: Reports systems reviewed and no addt'l complaints, except as documented Neurologic Neurologic: Reports systems reviewed and no addt'l complaints, except as documented Psychiatric Psychiatric: Reports systems reviewed and no addt'l complaints, except as documented Endocrine Endocrinology: Reports systems reviewed and no addt'l complaints, except as do cumented Hematologic/Lymphatic Hematologic/Lymphatic: Reports systems reviewed and no addt'l complaints, except as documented Allergic/Immunologic Allergic/Immunologic: Reports systems reviewed and no addt'l complaints, except as documented Physical Exam Const alert and oriented x3 General Appearance: cooperative Orientation / Consciousness: awake, oriented to person, oriented to place and oriented to time Exam Limitations: no limitations HEENT normocephalic Head and Scalp: normal to inspection, normocephalic and atraumatic Face and Sinus: normal facial exam Eyes General Eye: normal appearance of both eyes Neck full ROM Chest Chest: symmetrical chest wall rise Resp normal respiratory effort and normal air movement Auscultation: clear to auscultation bilaterally Cardio regular rate, regular rhythm, S1 normal heart sound, S2 normal heart sound, no murmurs, no rub, no gallops and no clicks GI normal to inspection, nondistended, normoactive bowel sounds and non-tender appearance of the vagina normal Bladder / Kidney Exam: no CVA tenderness Back/Spine normal ROM Extremity normal to inspection and full ROM Skin no rashes or lesions noted Neuro oriented x3, CN's II-XII intact bilaterally and moves all extremities Sensorium / Orientation: awake, alert and oriented to person Motor Exam: clonus absent Deep Tendon Reflexes: Rt Patellar (L4): 2+ and Lt Patellar (L4): 2+ Assessment & Plan (1) Lactating mother: (2) Vaginal delivery: (3) delivery: PLAN: Plan 1) PPD #1 2) Pain management 3) Vitals stable 4) I&O 5) Uncertain if D/C today or tomorrow due to prematurity
[2023-09-14] MEDS: Ibuprofen 600 MG Tablet PO ×2 (05:25→11:41)
[2023-09-14 05:49] LABS: Absolute Lymphocyte Count 2.12 X10^3/uL (0.83-4.51); Absolute Neutrophil Count 7.6 X10^3/uL (2.0-7.7); Basophil# 0.06 X10^3/uL; Basophil% 0.5 % (0-1); Eosinophil# 0.09 X10^3/uL; Eosinophils% 0.8 % (0-5); Hematocrit 32.7 % (37-47); Hemoglobin 10.8 g/dL (12.0-15.0); Lymphocyte # 2.12 X10^3/ul (0.83-4.51); Lymphocyte % 18.9 % (19-41); Mean Corpuscular Hgb 29.4 pg (27.0-32.0); Mean Corpuscular Volume 89.1 fL (81-99); Monocyte# 1.17 X10^3/uL; Monocyte% 10.4 % (0-10); NRBC Flagged by Analyzer 0 % (0-5); Neutrophil # 7.64 X10^3/uL (2.7-7.7); Neutrophil % 68.2 % (47-70); Platelet Count 240 K/mm3 (150-450); RBC Distribution Width CV 13.5 % (11.6-14.6); RBC Distribution Width SD 43.9 fl (35.1-43.9); Red Blood Count 3.67 M/mm3 (4.2-5.4); White Blood Count 11.2 K/mm3 (4.4-11.0)
[2023-09-14] MEDS: Acetaminophen 500 MG Tablet 1000 MG PO (16:52)
== END 2023-09-14 19:00 | disposition home or self-care (01) | DRG 560 ==
LOC: WPOUT 14:06 → WP 14:07
PROVIDERS: Admitting Provider Advanced Practice Midwife; Referring Provider Advanced Practice Midwife; Visit Provider Advanced Practice Midwife
DX: O42.913 Preterm premature rupture of membranes, unspecified as to length of time between rupture and onset of labor, third trimester (principal); Z37.0 Single live birth; Z3A.36 36 weeks gestation of pregnancy; Z87.51 Personal history of pre-term labor
CPT/HCPCS: 59025; 59050; 85025; 86780; 86850; 86900; 86901; 99221; J7120; G0378

== ENCOUNTER 2023-11-28 12:56 | Day surgery (SDC) | payer MEDICAID, SELFPAY ==
[2023-11-28] VITALS (7 sets, daily range): BP systolic 94–121; BP diastolic 63–81; PULSE 68–75; RESP 16; TEMP 36.1–36.5; O2SAT 98–100; BMI 24.7
--- NOTE | 2023-11-28 | IMM_PTH ---
PATIENT: TERRY CARLOS LOC: [facility] [place] U#:[id number] AGE/SX: 28/F ROOM: RE11/28/[address]: Dr. Karen Arana DO : 1995 BED: DIS: 11/28/2023 SPEC #: [id number] RECD: 12/02/23 09:44 STATUS: ARJUN REQ #: [id number] RADHA: 11/28/23 00:[address]: Karen Arana DEPT: IMMUNOHISTOCHEMISTRY RECD BY: Jono Girard ENTERED: 12/02/23 09:45 SP TYPE: IMMUNO OTHR DR: No Primary Care Phys Tissues: B - Uterine cervix, NOS Procedures: p16 (initial) KI-67 (add) PHYSICIAN & INSTITUTION [place] [address] SPECIMEN INFORMATION: Tissue Source: B- Cervical biopsy Clinical Info: Sterilization Specimen Number: [id number] CPT code: 56856 METHODOLOGY: Deparaffinized sections of prefer/formalin-fixed tissue or PAP/DQ stained slides are incubated with monoclonal/polyclonal antibodies/oligonucleotide probes. Localization is made via biotin free immunoperoxidase method. Appropriate controls are performed and reacted as expected. Results on target cell population are indicated in the following table: RESULTS: ANTIBODY / CLONE RESULT Block B P16 (E6H4) positive, block staining Ki-67 (30-9) positive. high These tests were developed and their performance characteristics determined by [facility]. They may not have been cleared or approved by the U.S. Food and Drug Administration. The FDA has determined that such clearance or approval is not necessary. The above immunohistochemical/dualISH markers are ordered and reviewed by the Pathologist. INTERPRETATION: B. 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 REN/ 12/03/23
--- NOTE | 2023-11-28 07:48 | PCM.HP.OB ---
HPI - General General Date of Admission: 11/28/23 Date of Service: 11/28/23 Chief Complaint: Desire for sterilization HPI Narrative TERRY CARLOS, is a 28 F who presents requesting sterilization. She is 100% certain she does not desire pregnancies in the future. She understands alternative options for control. She request to proceed with sterilization. She offers no complaints. Maternal Data Information SHI Calculator Estimated Delivery Date Method Current WG Current Estimate 10/09/23 Manual 47w 1d PFSH PFS Medical History (Updated 11/28/23 @ 07:[address] Karen Arana, DO) Body piercing Breast feeding status of mother Dietary restriction Former smoker Heartburn History of pre-term labor Piercing of nasal septum depression Home Medications vitamins no.144-folic acid 400 mcg chewable tablet () 2 tab PO DAILY 08/18/23 [History Last Taken 09/12/23 22:00] miconazole nitrate 2 % topical cream 1 applic topical 4X/DAY 11/26/23 [History Last Taken Unknown] Allergy/AdvReac Type Severity Reaction Status Date / Time No Known Allergies Allergy Verified 11/26/23 12:30 Surgical History (Updated 11/26/23 @ 12:47 by Jessica Krishnamurthy) No history of previous surgery Social History (Updated 01/15/21 @ 22:[address] Pete Ch, DO) Smoking Status: Former smoker substance use type: does not use History Elective abortions Hx Para 1 Spontaneous abortions Hx # Term Pregnancies Ectopic pregnancies Hx # Pregnancies Multiple births # of living children Physical Exam Const alert and no apparent distress General Appearance: comfortable HEENT normocephalic Resp normal respiratory effort Cardio regular rate GI soft to palpation, non-tender and non-distended Extremity normal to inspection Labs Labs Labs: Blood Type O POSITIVE Antibody Screen NEGATIVE Hct 32.7 % (37-47) L Hgb 10.8 g/dL (12.0-15.0) L Syphilis Total Ab Non-reactive Group B Strep DNA Negative (Negative) Assessment & Plan (1) Sterilization: PLAN: Patient requests sterilization. She is 100% certain she does not desire future . She understands sterilization is permanent and irreversible, and there is a risk of regret. Discussed risk, benefits, alternatives to a laparoscopic bilateral salpingectomy. (2) OMAR III (cervical intraepithelial neoplasia III): PLAN: colposcopy shows high-grade cervical intraepithelial neoplasia. Will discuss LEEP procedure with patient.
[2023-11-28] MEDS: Lactated Ringers 1,000 ML 15 ML IV (13:33)
[2023-11-28 13:43] LABS: Internal QC Validated? YES +Cl - CLEAR BKGD; Record Kit Lot#,Urine Preg HCG0000718086
[2023-11-28 13:46] LABS: Pregnancy, Urine Negative Negative
[2023-11-28 13:47] LABS: Hematocrit 38.6 % (37-47); Hemoglobin 12.8 g/dL (12.0-15.0); Mean Corp Hgb Conc 33.2 g/dL (32-36); Mean Corpuscular Hgb 28.8 pg (27.0-32.0); Mean Corpuscular Volume 86.7 fL (81-99); Mean Platelet Vol. 11.4 fl (6.2-12.0); Platelet Count 283 K/mm3 (150-450); RBC Distribution Width CV 13.5 % (11.6-14.6); Red Blood Count 4.45 M/mm3 (4.2-5.4); White Blood Count 6.4 K/mm3 (4.4-11.0)
--- NOTE | 2023-11-28 14:30 | FALS_PTH ---
PATIENT: TERRY CARLOS LOC: [facility] [place] U#:[id number] AGE/SX: 28/F ROOM: RE11/28/[address]: Dr. Karen Arana DO : 1995 BED: DIS: 11/28/2023 SPEC #: [id number] RECD: 11/28/23 15:59 STATUS: ARJUN REQ #: [id number] RADHA: 11/28/23 14:[address]: Karen Arana DEPT: SURGICAL PATHOLOGY RECD BY: Cristina Mcmahon ENTERED: 11/29/23 10:14 SP TYPE: FALL TUBES OTHR DR: No Primary Care Phys Tissues: A - Fallopian tube B - Uterine cervix, NOS C - Endocervical D - Endocervical Procedures: Surgery Specimen Level II Surgery Specimen Level IV HEADER OPERATION: Laparoscopic, Salpingectomy PRE-OP DIAGNOSIS: Sterilization TISSUE SUBMITTED: A- Bilateral fallopian tubes, B- Cervical biopsy, C- Endocervical biopsy, D- Endocervical Curettings MICROSCOPIC DIAGNOSIS A. Bilateral fallopian tubes, salpingectomy: Bilateral fallopian tubes, no pathologic diagnosis. B. 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 Chronic inflammation. See comment. C. Endocervix, leep conization: Negative for dysplasia. D. Endocervical Curettings: Fragments of benign endocervical mucosa, blood and mucus. Negative for dysplasia. /mr 12/02/2023 COMMENT B. Extensive dysplastic changes are noted in largest fragment. Dysplastic changes also involve the endocervical glands. Dysplastic changes are present at the ectocervical resection margin in the largest piece. Immunohistochemistry ([id number]) for surrogate HPV marker (p16) supports the above diagnosis. Three smaller pieces entirely show in the endocervical mucosa. Clinical correlation is necessary for definite evaluation of the resection margins. Case has been reviewed in consultation with Dr. Sunshine who concurs with the above diagnosis. IDC:AM MICROSCOPIC DESCRIPTION Slides are reviewed. GROSS DESCRIPTION A. Received in fixative is one container labeled with the patient's name and designated bilateral fallopian tubes. The specimen consists of bilateral fallopian tubes including fimbrial ends measuring 6.0 cm in length and 0.6 cm in diameter and 5.0cm in length and 0.7cm in diameter. The fallopian tubes are not identified as right or left. Sections reveal unremarkable cut surfaces. Oncology Nurse Navigator sections are submitted in two cassettes with each cassette containing one fallopian tube. B. Received in fixative is one container labeled with the patient's name and designated Cervical biopsy. The specimen consists of two morris indurated pieces of tissue measuring 1.0 x 0.2 x 0.1cm and 1.5 x 1.0 x 0.3cm. No mucosal lesion is identified. The non-mucosal surface is inked black. The two smaller fragments of morris soft tissue are also noted measuring in aggregate 0.5 x 0.2 x 0.1cm. The entire specimen is submitted in two cassettes as follows: 1- three smaller pieces, 2- largest piece. Largest piece is serially sectioned. C. Received in fixative is one container labeled with the patient's name and designated Endocervical biopsy. The specimen consists of two of morris indurated pieces of tissue measuring 1.0 x 1.0 x 0.2 and 0.8 x 0.5 x 0.2cm. No mucosal lesion is identified. Non-mucosal surface is inked black. The entire specimen is submitted in two cassettes as follows: Each cassette contains one piece. D. Received in fixative is one container labeled with the patient's name and designated Endocervical Curettings. The specimen consists of multiple irregular fragments of morris-brown soft tissue that in aggregate measure 1.0 x 0.2 x 0.1 cm. The entire specimen is submitted in one cassette. SJ/mr 11/29/23 TC: 0 CPT: 95448 x2, [id number]
[2023-11-28] MEDS: Bupivacaine Mpf 0.5% 30 ML VIAL (15:00)
[2023-11-28] MEDS: Lidocaine 1% /Epi 1:100 (20ml) 20 ML Vial (15:14)
[2023-11-28] MEDS: FERRIC SUBSULFATE 8 GM SOLN (15:17)
[2023-11-28] MEDS: Iodine/Potassium Iodide 14ML Bottle 1 DRP TOPICAL (15:17)
--- NOTE | 2023-11-28 15:30 | DCINST_ITS ---
Discharge Instructions Diet Discharge Diet: No restrictions Activity Discharge Activity: May Drive (Once you are more than 24 hours out from surgery, not needing pain medication, and feel you are strong enough to slam on a brake or turn a steering wheel sharply) and May Shower (Once you are more than 24 hours out from surgery) May resume sexual activity in: 4 weeks (No intercourse, tampons, or soaking in water for 4 weeks) Ice area for (Minutes): 15 Weight Bearing Status: Weight bearing as tolerated Lifting Restrictions: nothing heavier than baby for 2 weeks Dressing / Incision Call your doctor if your incision/area has: Continuous Slow Oozing, Sudden Increased Bleeding, Increased Pain/ Swelling, Increased Redness, Foul Smelling Discharge and Swelling at the incision site Call your doctor if you observe: Fever of 101 or Higher, Coldness, Increased Pain, Numbness or Tingling, Change in Color, Inability to urinate, Inability to have a bowel movement, Using more than 1 pad per hour, Shortness of breath, Dizziness, Fainting spells, Swelling in the ankles, Chest pain, Prolonged hiccupping, Increased palpitations (irregular heartbeat), Calf discomfort and Uncontrolled pain Suture Line Care: Avoid Pulling/Pushing Remove Dressing in: leave until fall off (The glue will peel up and fall off in the shower. There is suture underneath that will dissolve) Cleanse incision/area with: Soap & Water Follow Up Care Please Follow Up With: Karen Arana DO When: 1-2 weeks for post op 6 months for a pap test and HPV Test Results: Test results from this visit will be discussed in further detail at your follow- up appointment, if applicable. Discharge Plan Admission Primary Reason for Your Visit: surgery Attending Provider: Karen Arana Primary Care Provider: Annamarie Mcbride Primary Instructions Patient Instructions: Pelvic Laparoscopy, Leep Discharge Orders/Prescriptions Prescriptions: New oxycodone-acetaminophen [Percocet] 5-325 mg tablet 1 tab PO Q6H PRN (Reason: pain) 7 Days Qty: 5 0RF ibuprofen 600 mg tablet 600 mg PO Q6H PRN (Reason: pain) Qty: 30 0RF Continued 400 mcg tablet,chewable 2 tab PO DAILY miconazole nitrate 2 % cream 1 applic topical 4X/DAY Rx Instructions: AFTER USING BREAST PUMP 5-8 TIMES PER DAY Referrals / Follow Up: Care PhysicianNo Primary [Primary Care Provider] - Disposition Disposition (needs filled in before D/C Order can be placed): Home, Self Care
--- NOTE | 2023-11-28 15:32 | PCM.OPRPT ---
Problems Associated Problem List Diagnoses (1) Sterilization: (2) OMAR III (cervical intraepithelial neoplasia III): Report of Operation Date of Procedure: 11/28/23 Pre-Operative Diagnosis: Request for sterilization, high grade cervical dysplasia Post-Operative Diagnosis: As above Surgery/Procedure Performed:: Laparoscopic bilateral salpingectomy Cervical LEEP with top hat and with ECC Description of Surgical Findings:: Normal appearing uterus, pelvic CDS, and bilateral adnexa. Cervix and vagina grossly normal appearing. Minimal descent of the cervix and uterus. Surgeon: Karen Arana psychologist industrial organizational: [employer] Type of Anesthesia: General Special Medications: None Specimen's removed: Bilateral fallopian tubes Cervical biopsy Endocervical biopsy Endocervical curettings Drains: None Estimated Blood Loss (mL): < 50 Fluids Replaced: 800 mL Description of Procedure: The patient was taken to the operating room where general anesthesia was induced. She was prepped and draped in the dorsal lithotomy position using yellow fin stirrups. A weighted speculum was placed in the vagina to expose the cervix. The anterior lip of the cervix was grasped with a single-tooth tenaculum. A uterine manipulator was placed. The single-tooth tenaculum and weighted speculum were removed. Gloves were changed and attention was turned to the abdominal portion of the procedure. Local was infiltrated at all port sites. An infraumbilical incision was made to accommodate a 5 mm port under direct visualization. Once confirmed intraperitoneal, CO2 insufflation was initiated and no injury was noted upon entry. The patient was placed in Trendelenburg position. A right lateral 5 mm port was placed. A left lateral 5 mm port was placed. The uterus and bilateral adnexa were normal-appearing. The right fallopian tube was followed out to the fimbriated end. The LigaSure device was used to serially clamp, cauterize, and transect along the mesosalpinx hugging adjacent to the fallopian tube. Once at the level of the cornua the right fallopian tube was transected and removed. The same was performed on the left. The left fallopian tube was followed out to the fimbriated end. The LigaSure device was used to serially clamp, cauterize, and transect the mesosalpinx hugging adjacent to the fallopian tube until reaching level of the cornua. Once at the level of the cornua the fallopian tube was transected and removed. Bilateral fallopian tubes were sent to pathology for review. Hemostasis was noted. The abdomen was exsufflated and ports were removed. The skin was closed with 4 Monocryl and glue. A speculum and sidewall retractor were placed in the vagina after the uterine manipulator was removed to expose the cervix. Lugol's iodine solution was placed over the cervix. A single-tooth tenaculum placed on the anterior of the cervix. Lidocaine with epinephrine was injected circumferentially in the cervix. Using a 20 mm x 10 mm loop, a cervical biopsy was performed and the cervix was notable to be friable and the specimen was removed in two separate pieces so unable to be marked. A smaller loop was used to perform a biopsy of the endocervix, to complete a LEEP with a top hat. An ECC was then performed. The cervical bed was cauterized with the roller ball and Monsel's solution was placed over the cervical bed. Hemostasis was noted. All instruments were removed from the vagina. A vaginal sweep was performed. Instrument, sponge and needle counts were correct and the patient was taken to the recovery room in stable condition. Grafts/Implants Used: None Procedure Start Time: 14:42 Procedure Stop Time: 15:27 Complications None Admit VTE Documentation VTE Present on Admission: No VTE Mechan Device Prophylaxis: SCD's
== END 2023-11-28 16:37 | disposition home or self-care (01) ==
LOC: SDC 12:57 → AC 13:01
PROVIDERS: Referring Provider Obstetrics & Gynecology; Visit Provider Obstetrics & Gynecology
PROC: (CPT 58661; principal; 2023-11-28 14:15)
PROC: 0UBC7ZZ Excision of Cervix, Via Natural or Artificial Opening (ICD-10-PCS; CPT 57522; 2023-11-28 14:15)
DX: Z30.2 Encounter for sterilization (principal); Z87.891 Personal history of nicotine dependence; Z87.51 Personal history of pre-term labor; D06.1 Carcinoma in situ of exocervix
CPT/HCPCS: 58661; 00840; 81025; 85027; 86850; 86900; 86901; 88302; 88305; 88341; 88342; J7120; J2405